=== PATIENT | female | born 1950 | race Caucasian/White ===

== ENCOUNTER 2020-04-27 12:33 | Outpatient (REF) | payer MEDICARE, MEDICAID, SELFPAY | END 2020-04-27 12:34 | disposition home or self-care (01) | LOC: HO.LAB 12:33 | PROVIDERS: Visit Provider Internal Medicine | DX: Z20.828 Contact with and (suspected) exposure to other viral communicable diseases (principal) | CPT/HCPCS: C9803; U0003 ==

== ENCOUNTER 2020-06-05 07:56 | Outpatient (REF) | payer MEDICARE, MEDICAID, SELFPAY ==
--- NOTE | 2020-06-05 08:01 | CT_ITS ---
EXAMINATION: CT CHEST, ABDOMEN AND PELVIS WITHOUT IV CONTRAST CLINICAL INFORMATION: Breast and stomach cancer. Assess response to treatment. COMPARISON: Previous abdominal and pelvic CT November 2019 and chest October 2011 TECHNIQUE: Axial images through the chest, abdomen and pelvis without IV and following oral contrast. Sagittal and coronal reconstructions on the technologist's workstation were performed. Patient dose 88 mGy-cm plus 313 mGy-cm. This CT examination was performed using dose optimization techniques as appropriate, variously including the following: *Automated exposure control *Adjustment of mA and/or kV according to patient size (this includes techniques or standardized protocols for targeted exams where dose is matched to indication/reason for exam; i.e. extremities or head) *Use of iterative reconstruction technique FINDINGS: CHEST: There is a 6 mm calcified peripheral or subpleural left upper lobe nodule axial image 214 series 5 that is stable. There is a 5 mm more central calcified left upper lobe nodule axial image 238 series 5 that is stable. There is a 3 mm peripheral or subpleural right upper lobe nodule adjacent to the major fissure axial image 234 series 5 that is stable. There are increased peripheral interstitial markings in the right upper and right middle lobe probably related to previous chest wall radiation, stable. The lungs are otherwise clear. No new nodule. The heart does not appear enlarged. There is no coronary artery calcification. There is no pericardial effusion. The thoracic aorta is normal in caliber. The esophagus is unremarkable. There is a left jugular port with tip projecting over the distal left innominate vein/proximal SVC. There are no enlarged hilar or mediastinal lymph nodes. There is no pleural effusion or pleural thickening. There are surgical clips in the right axilla. No enlarged axillary lymph nodes are seen. No chest wall mass is seen. ABDOMEN AND PELVIS: The liver is unremarkable. The gallbladder has been removed. There is no biliary duct dilatation. The spleen is unremarkable. The pancreas is unremarkable. The adrenal glands and kidneys are unremarkable. The bladder is unremarkable. The uterus and adnexa are unremarkable. There is a new [id number]-bhunn amount of ascites seen. There is infiltration and nodularity of the fat of the greater omentum suggestive of peritoneal carcinomatosis. The small and large bowel are unremarkable. The appendix is unremarkable. There is apparent wall thickening of the proximal stomach. How much of this is due to underdistention is uncertain. Evaluation for lymphadenopathy is difficult due to lack of contrast. There are small upper abdominal retroperitoneal lymph nodes. There are small lymph nodes seen in the gastrohepatic region. No enlarged lymph nodes are seen. The vascular structures are unremarkable. Review at bone windows demonstrates degenerative changes of the spine. No fracture or bone lesion is seen. CT/CT abdomen pelvis wo con IMPRESSION: CHEST: Stable calcified and noncalcified pulmonary nodules from 2012. No evidence of metastatic disease. ABDOMEN AND PELVIS: New qakkoxzb-ju-sytbi amount of ascites. Infiltration and nodularity of the greater omental fat worrisome for carcinomatosis.
--- NOTE | 2020-06-05 08:01 | CT_ITS ---
EXAMINATION: CT CHEST, ABDOMEN AND PELVIS WITHOUT IV CONTRAST CLINICAL INFORMATION: Breast and stomach cancer. Assess response to treatment. COMPARISON: Previous abdominal and pelvic CT November 2019 and chest October 2011 TECHNIQUE: Axial images through the chest, abdomen and pelvis without IV and following oral contrast. Sagittal and coronal reconstructions on the technologist's workstation were performed. Patient dose 88 mGy-cm plus 313 mGy-cm. This CT examination was performed using dose optimization techniques as appropriate, variously including the following: *Automated exposure control *Adjustment of mA and/or kV according to patient size (this includes techniques or standardized protocols for targeted exams where dose is matched to indication/reason for exam; i.e. extremities or head) *Use of iterative reconstruction technique FINDINGS: CHEST: There is a 6 mm calcified peripheral or subpleural left upper lobe nodule axial image 214 series 5 that is stable. There is a 5 mm more central calcified left upper lobe nodule axial image 238 series 5 that is stable. There is a 3 mm peripheral or subpleural right upper lobe nodule adjacent to the major fissure axial image 234 series 5 that is stable. There are increased peripheral interstitial markings in the right upper and right middle lobe probably related to previous chest wall radiation, stable. The lungs are otherwise clear. No new nodule. The heart does not appear enlarged. There is no coronary artery calcification. There is no pericardial effusion. The thoracic aorta is normal in caliber. The esophagus is unremarkable. There is a left jugular port with tip projecting over the distal left innominate vein/proximal SVC. There are no enlarged hilar or mediastinal lymph nodes. There is no pleural effusion or pleural thickening. There are surgical clips in the right axilla. No enlarged axillary lymph nodes are seen. No chest wall mass is seen. ABDOMEN AND PELVIS: The liver is unremarkable. The gallbladder has been removed. There is no biliary duct dilatation. The spleen is unremarkable. The pancreas is unremarkable. The adrenal glands and kidneys are unremarkable. The bladder is unremarkable. The uterus and adnexa are unremarkable. There is a new nkkrygzm-un-eieew amount of ascites seen. There is infiltration and nodularity of the fat of the greater omentum suggestive of peritoneal carcinomatosis. The small and large bowel are unremarkable. The appendix is unremarkable. There is apparent wall thickening of the proximal stomach. How much of this is due to underdistention is uncertain. Evaluation for lymphadenopathy is difficult due to lack of contrast. There are small upper abdominal retroperitoneal lymph nodes. There are small lymph nodes seen in the gastrohepatic region. No enlarged lymph nodes are seen. The vascular structures are unremarkable. Review at bone windows demonstrates degenerative changes of the spine. No fracture or bone lesion is seen. CT/CT chest wo con IMPRESSION: CHEST: Stable calcified and noncalcified pulmonary nodules from 2012. No evidence of metastatic disease. ABDOMEN AND PELVIS: New lvsuoggz-ws-xfpvr amount of ascites. Infiltration and nodularity of the greater omental fat worrisome for carcinomatosis.
== END 2020-06-05 07:57 | disposition home or self-care (01) ==
LOC: HO.CT 07:56
PROVIDERS: Visit Provider Internal Medicine
DX: C16.9 Malignant neoplasm of stomach, unspecified (principal)
CPT/HCPCS: 71250; 74176

== ENCOUNTER 2020-06-07 07:36 | Day surgery (SDC) | payer MEDICARE, MEDICAID, SELFPAY ==
[2020-06-07] VITALS (7 sets, daily range): BP systolic 117–141; BP diastolic 50–65; PULSE 97–108; RESP 16–19; TEMP 36.8–37.1; O2SAT 95–99; BMI 26.7
[2020-06-07 08:31] LABS: INTERNATIONAL NORM RATIO 1.1 (0.9-1.1); Prothrombin Time 12.8 SEC (10.8-13.0)
[2020-06-07 08:33] LABS: Partial Thromboplastin Time 30.8 SEC (24.1-38.0)
--- NOTE | 2020-06-07 09:04 | US_ITS ---
EXAMINATION: ULTRASOUND-GUIDED PARACENTESIS. CLINICAL INFORMATION: Malignant neoplasm of stomach. COMPARISON: None TECHNIQUE: Following explaining ultrasound-guided paracentesis procedure, benefits and risk, a written consent was obtained. Patient was placed supine on fluoroscopy table and pulmonary ultrasound imaging was obtained through the abdomen in the right upper quadrant lateral site was selected. The selected optimal site was marked, cleaned and draped in usual sterile manner. 1% lidocaine was injected at puncture site. Through a small skin incision a [address] Atlanticeh catheter was advanced into the peritoneal space. After observing fluid return, stylet was withdrawn and catheter connected to vacuum bottle via connecting cannula. After obtaining all fluid and observing no more fluid return, catheter was withdrawn and complete hemostasis achieved at puncture site. Sterile dressing was applied postprocedure. Patient tolerated procedure extremely well. FINDINGS: On preliminary ultrasound imaging there is moderate free fluid in the pelvis slightly greater on the right side. Approximately 2.6 L of brown-reddish fluid was aspirated from the peritoneal cavity. None of this fluid was sent to lab. US/US paracentesis abd w/image IMPRESSION: Successful ultrasound-guided paracentesis with approximately 2.6 L of brownish-reddish fluid was removed.
== END 2020-06-07 23:59 | disposition home or self-care (01) ==
PROVIDERS: PCP Internal Medicine; Visit Provider Radiology Diagnostic Radiology
DX: C16.9 Malignant neoplasm of stomach, unspecified (principal); R18.8 Other ascites; I10 Essential (primary) hypertension; Z88.8 Allergy status to other drugs, medicaments and biological substances
CPT/HCPCS: 36415; 49083; 85610; 85730

== ENCOUNTER 2020-06-25 07:42 | Day surgery (SDC) | payer MEDICARE, MEDICAID, SELFPAY ==
--- NOTE | 2020-06-25 08:18 | US_ITS ---
EXAMINATION: US GUIDED PARACENTESIS CLINICAL INFORMATION: Ascites. COMPARISON: Ultrasound paracentesis 06/07/2020 TECHNIQUE: Following explaining ultrasound-guided paracentesis procedure, benefits and risk, a written consent was obtained. Patient was placed supine on fluoroscopy table and preliminary ultrasound imaging was obtained through right and left abdomen. An optimal site was selected mid abdomen laterally and marked. The marked site was cleaned and draped in usual sterile manner with 2% Chlorhexidine solution. 1% lidocaine was administered at puncture site. Through a small skin incision, a 5-[employer] catheter was advanced into the peritoneal space. After observing fluid return, the catheter was connected to vacuum bottle via connecting cannula. After obtaining all fluid and observing no more fluid return, the catheter was withdrawn and complete hemostasis achieved at puncture site. Sterile dressing applied post-procedure. Patient tolerated procedure extremely well. FINDINGS: On preliminary ultrasound imaging, there is moderate fluid seen in the abdomen slightly more prominent in the right abdomen. Approximately 2.5 L of dark brownish-red fluid was removed from the right mid quadrant. None of this fluid was sent to lab as per referring physician's orders. US/US paracentesis abd w/image IMPRESSION: Successful ultrasound-guided paracentesis performed with approximately 2.5 L of dark brown-reddish fluid removed.
[2020-06-25 08:24] VITALS: BP 148/75; PULSE 105; RESP 16; TEMP 36.6; O2SAT 98
[2020-06-25 08:25] VITALS: BMI 28.0
[2020-06-25 09:45] VITALS: BP 149/64; PULSE 96; RESP 16; TEMP 37.1; O2SAT 97
[2020-06-25 10:00] VITALS: BP 124/57; PULSE 89; RESP 18; O2SAT 96
[2020-06-25 10:30] VITALS: BP 129/60; PULSE 94; RESP 16
[2020-06-25] MEDS: Lidocaine HCl 1 % MPF 5 ML VIAL SUBCUT (10:31)
[2020-06-25 11:00] VITALS: BP 120/51; PULSE 96; RESP 18; O2SAT 98
[2020-06-25 12:00] VITALS: BP 124/61; PULSE 90; RESP 18; TEMP 37.2; O2SAT 98
== END 2020-06-25 12:08 | disposition home or self-care (01) ==
PROVIDERS: PCP Internal Medicine; Visit Provider Radiology Diagnostic Radiology
DX: R18.8 Other ascites (principal); C50.911 Malignant neoplasm of unspecified site of right female breast; C78.89 Secondary malignant neoplasm of other digestive organs; B96.81 Helicobacter pylori [H. pylori] as the cause of diseases classified elsewhere; K21.9 Gastro-esophageal reflux disease without esophagitis; I10 Essential (primary) hypertension; Z88.8 Allergy status to other drugs, medicaments and biological substances; Z79.899 Other long term (current) drug therapy
CPT/HCPCS: 49083

== ENCOUNTER 2020-09-27 11:28 | Day surgery (SDC) | payer MEDICARE, MEDICAID, SELFPAY ==
--- NOTE | ~2020-09-27 | US_ITS ---
EXAMINATION: ULTRASOUND-GUIDED PARACENTESIS. CLINICAL INFORMATION: Malignant neoplasm of the stomach. COMPARISON: None TECHNIQUE: Following explaining ultrasound-guided paracentesis procedure, benefits and risks, written consent was obtained. Patient was placed supine on ultrasound stretcher and preliminary ultrasound imaging was obtained through the abdomen. An optimal site was selected, marked and cleaned and draped in usual sterile manner along the right mid quadrant. 1% lidocaine was injected at the puncture site. Through a small skin incision a 5-[place] Yi Chang Ou Sai IT catheter was advanced into the peritoneal space. After observing fluid return, stylet was removed and catheter connected to vacuum bottle. After draining all fluid and observing no more fluid return and ultrasound confirming no more fluid remaining, catheter was pulled out and complete hemostasis achieved at puncture site. Simple cyst dressing applied postprocedure. Patient tolerated procedure extremely well. FINDINGS: On the preliminary ultrasound imaging there is a large amount of ascites seen. Approximately 2.9 L of reddish-brown fluid was drained from the abdomen. US/US paracentesis abd w/image IMPRESSION: Successful ultrasound-guided therapeutic paracentesis. None of this fluid was sent to lab.
[2020-09-27 11:43] VITALS: BMI 22.8
[2020-09-27 12:00] LABS: INTERNATIONAL NORM RATIO 1.2 (0.9-1.1); Prothrombin Time 14.6 SEC (10.8-13.0)
[2020-09-27 12:02] LABS: Partial Thromboplastin Time 24.4 SEC (24.1-38.0)
[2020-09-27] MEDS: Lidocaine HCl 1 % MPF 5 ML VIAL SUBCUT (14:01)
[2020-09-27 14:10] VITALS: BP 132/71; PULSE 104; RESP 18; TEMP 37.3; O2SAT 97
[2020-09-27 14:25] VITALS: BP 121/56; PULSE 102; RESP 18; O2SAT 97
[2020-09-27 14:40] VITALS: BP 127/56; PULSE 100; RESP 18; O2SAT 98
[2020-09-27 14:55] VITALS: BP 117/56; PULSE 100; RESP 20; TEMP 36.7; O2SAT 99
== END 2020-09-27 15:18 | disposition home or self-care (01) ==
PROVIDERS: Radiology Diagnostic Radiology; PCP Internal Medicine; Visit Provider Radiology Diagnostic Radiology
DX: R18.8 Other ascites (principal); C16.9 Malignant neoplasm of stomach, unspecified; I10 Essential (primary) hypertension; Z85.3 Personal history of malignant neoplasm of breast
CPT/HCPCS: 36415; 49083; 85610; 85730; C1729

== ENCOUNTER 2020-11-29 09:15 | Outpatient (REF) | payer MEDICARE, MEDICAID, SELFPAY ==
--- NOTE | ~2020-11-29 | US_ITS ---
EXAMINATION: US ABDOMEN COMPLETE CLINICAL INFORMATION: Abdominal pain; history of breast and stomach cancer. COMPARISON: CT abdomen and pelvis 06/05/2020. Ultrasound abdomen 10/25/2018 and 11/01/2010. TECHNIQUE: Real-time imaging of the abdominal viscera. FINDINGS: PANCREAS: Normal. The visualized pancreatic head and body are normal in appearance. The remainder of the pancreas is obscured from visualization by the overlying bowel gas. ABDOMINAL AORTA: The visualized proximal and mid segments are normal in caliber. The distal segment is obscured by overlapping bowel gas. INFERIOR VENA CAVA: Visualized portions are normal. LIVER: The liver is normal in size. The liver contour is normal. Parenchymal echogenicity is normal. No focal hepatic lesion. There is mild intrahepatic biliary ductal dilatation. GALLBLADDER: Surgically absent. COMMON BILE DUCT: Normal in caliber, measuring 0.8 cm in diameter. RIGHT KIDNEY: There is moderate hydronephrosis No renal calculi or focal parenchymal lesions. The kidney measures 10.2 cm in maximum dimension. LEFT KIDNEY: There is moderate hydronephrosis. No renal calculi or focal parenchymal lesions. The kidney measures 10.3 cm in maximum dimension. SPLEEN: Normal. The spleen measures 8.4 cm in maximum dimension. FREE FLUID: There is mild 4 quadrant ascites. ADDITIONAL FINDINGS: Within the right upper quadrant, an 8.2 x 7.7 x 5.3 cm thick-walled cystic collection is seen, with possible medial loculation. US/US abdomen complete IMPRESSION: 1. There is moderate bilateral hydronephrosis. 2. The gallbladder surgically absent. 3. There is mild ascites. 4. There is a thick-walled cystic collection is seen in the right upper quadrant. Note is made that on the prior CT examination, there were findings suspicious for carcinomatosis. This finding could be further evaluated with dedicated CT.
== END 2020-11-29 09:16 | disposition home or self-care (01) ==
LOC: HO.US 09:15
PROVIDERS: Visit Provider Internal Medicine
DX: R10.9 Unspecified abdominal pain (principal)
CPT/HCPCS: 76700

== ENCOUNTER 2020-12-27 07:07 | Outpatient (REF) | payer MEDICARE, MEDICAID, SELFPAY ==
--- NOTE | ~2020-12-27 | CT_ITS ---
EXAMINATION: CT ABDOMEN AND PELVIS WITHOUT CONTRAST CLINICAL INFORMATION: Intra-abdominal and pelvic swelling, mass, lump. COMPARISON: Multiple priors, most recent abdominal ultrasound dated 11/29/[address] abdomen/pelvis dated 06/05/2020 TECHNIQUE: Multidetector volumetric imaging was performed from the superior aspect of the liver through the pubic symphysis. Sagittal and coronal reformatted images were obtained on the technologist's workstation. This CT examination was performed using dose optimization techniques as appropriate, variously including the following: *Automated exposure control *Adjustment of mA and/or kV according to patient size (this includes techniques or standardized protocols for targeted exams where dose is matched to indication/reason for exam; i.e. extremities or head) *Use of iterative reconstruction technique DLP: 281 mGy-cm FINDINGS: LUNG BASES: The visualized lung bases are unremarkable. LIVER, GALLBLADDER, AND BILIARY TREE: The liver is normal in size, shape, and attenuation. No focal hepatic lesion or biliary ductal dilatation is present. Status post cholecystectomy. PANCREAS: Poorly visualized without contrast. Grossly unremarkable. SPLEEN: Unremarkable. ADRENAL GLANDS: Unremarkable. KIDNEYS AND URETERS: Prominent bilateral hydronephrosis, similar when compared to the recent ultrasound. No renal or ureteral stone. No definite parenchymal lesion. BLADDER: Unremarkable. GASTROINTESTINAL TRACT: No bowel wall thickening or associated inflammatory change. No small or large bowel obstruction. Oral contrast reaches the colon. PERITONEAL CAVITY: [id number]-jgirn amount of ascites, similar when compared to the prior examination. No intra-abdominal free air. ABDOMINAL WALL: No significant hernia is appreciated. LYMPH NODES: Evaluation of lymphadenopathy limited without IV contrast. Thickening of the omentum is redemonstrated throughout the upper abdomen, concerning for carcinomatosis, unchanged. VASCULAR: No abdominal aortic dilatation. Scattered atherosclerotic calcifications. PELVIC VISCERA: Within the right pelvis, there is a new/increasing soft tissue density lesion measuring 5.4 x 4.3 cm in greatest axial dimension (axial image 60/82). Adjacent right ovary with associated calcification appears unchanged. OSSEOUS STRUCTURES: No new lytic or blastic osseous lesion. CT/CT abdomen pelvis wo con IMPRESSION: 1. New/increasing soft tissue mass within the right pelvis measuring up to 5.4 cm, not well seen on the prior examination. Adjacent right ovary with associated calcification appears unchanged. 2. Yrxzzytk-cw-htivp volume ascites as well as diffuse omental thickening/nodularity is redemonstrated, consistent with carcinomatosis. 3. Prominent bilateral hydronephrosis, similar when compared to the recent ultrasound.
[2020-12-27] MEDS: Barium Sulfate Oral (Vanilla) 450 ML ORAL.SUSP 900 ML PO (11:34)
== END 2020-12-27 07:08 | disposition home or self-care (01) ==
LOC: HO.CT 07:07
PROVIDERS: PCP Internal Medicine; Visit Provider Internal Medicine
DX: R19.00 Intra-abdominal and pelvic swelling, mass and lump, unspecified site (principal)
CPT/HCPCS: 74176

== ENCOUNTER 2021-01-08 12:10 | Day surgery (SDC) | payer MEDICARE, MEDICAID, SELFPAY ==
--- NOTE | ~2021-01-08 | US_ITS ---
PROCEDURE: ULTRASOUND-GUIDED PARACENTESIS CLINICAL INFORMATION: Ascites. COMPARISON: CT abdomen and pelvis 12/27/2020. TECHNIQUE: Following explaining ultrasound-guided paracentesis procedure, benefits and risk, a written consent was obtained. Patient was placed supine on ultrasound stretcher and preliminary ultrasound imaging was obtained through the abdomen. An optimal site was selected along the right mid quadrant and marked. The marked site was cleaned and draped in the usual sterile manner with 2% chlorhexidine solution. 1% lidocaine was administered at puncture site. Through a small skin incision a 4 [email or web address] catheter was advanced into the peritoneal space. After observing fluid return, stylus withdrawn and catheter connected to vacuum bottle. After obtaining all fluid and observing no more fluid return, the catheter was withdrawn and complete hemostasis was achieved at puncture site. Sterile Band-Aid applied postprocedure. Patient tolerated the procedure extremely well. FINDINGS: On preliminary ultrasound imaging there is large amount of free fluid seen. Approximately 5.5 L of blood-tinged fluid was drained. Postprocedure no residual fluid was seen . US/US paracentesis abd w/image IMPRESSION: Successful ultrasound-guided paracentesis performed without immediate complications.
[2021-01-08 12:57] VITALS: BMI 24.0
[2021-01-08 13:30] LABS: Prothrombin Time 11.4 SEC (9.9-13.0)
[2021-01-08 13:33] LABS: Partial Thromboplastin Time 30.5 SEC (24.1-38.0)
[2021-01-08 16:25] VITALS: BP 173/83; PULSE 121; RESP 16; TEMP 37.3; O2SAT 96
[2021-01-08 16:40] VITALS: BP 174/83; PULSE 122; RESP 15; O2SAT 97
[2021-01-08 16:55] VITALS: PULSE 128; RESP 16; O2SAT 98
[2021-01-08 17:15] VITALS: BP 171/86; PULSE 123; RESP 17; TEMP 37.1; O2SAT 97
[2021-01-08 17:30] VITALS: BP 165/88; PULSE 120; RESP 16; O2SAT 98
[2021-01-08 18:00] VITALS: BP 153/76; PULSE 114; RESP 17; TEMP 37; O2SAT 97
== END 2021-01-08 18:05 | disposition home or self-care (01) ==
LOC: HO.SSS 12:10
PROVIDERS: Radiology Diagnostic Radiology; PCP Internal Medicine; Visit Provider Radiology Diagnostic Radiology
DX: R18.8 Other ascites (principal); I10 Essential (primary) hypertension; Z79.899 Other long term (current) drug therapy; Z88.8 Allergy status to other drugs, medicaments and biological substances
CPT/HCPCS: 36415; 49083; 85610; 85730

== ENCOUNTER 2021-01-11 13:48 | Emergency (ER) | payer MEDICARE, MEDICAID, SELFPAY ==
--- NOTE | 2021-01-11 | ECG_ITS ---
Test Reason : CHEST PAIN Blood Pressure : / mmHG Vent. Rate : 106 BPM Atrial Rate : 106 BPM P-R Int : 148 ms QRS Dur : 074 ms QT Int : 344 ms P-R-T Axes : 053 -03 031 degrees QTc Int : 456 ms Sinus tachycardia Otherwise normal ECG When compared with ECG of 30-AUG-2019 18:33, No significant change was found Referred By: Generic ED Physician Electronically Signed By:MEDARDO CONWAY
--- NOTE | ~2021-01-11 | NM_ITS ---
EXAMINATION: NM LUNG IMAGE PERFUSION CLINICAL INFORMATION: Elevated d-dimer. Chest pain. COMPARISON: Chest x-ray January 11, 2021. CT chest June 05, 2020 TECHNIQUE: Lung perfusion study performed. 4 mCi technetium 99m MAA was given intravenously. Images then obtained in multiple projections over the lungs. FINDINGS: There is homogeneous perfusion of the right and left lung with no defect. No evidence of pulmonary embolism. NM/NM pul perfusion IMPRESSION: Normal perfusion lung study. No evidence of pulmonary embolism.
--- NOTE | ~2021-01-11 | XR_ITS ---
EXAMINATION: XR CHEST CLINICAL INFORMATION: Chest pain. COMPARISON: CT chest 06/05/2020 TECHNIQUE: 2 views of the chest were obtained. FINDINGS: The lungs are well-expanded and clear. Heart size and pulmonary vascularity is normal. There is a left jugular inserted Port-A-Cath with its tip in the brachiocephalic venous junction. There are surgical bel in the right axilla. Visualized bones and soft tissues are grossly unremarkable. XR/XR chest 2V IMPRESSION: Unremarkable chest.
[2021-01-11 13:54] VITALS: BP 185/87; PULSE 108; RESP 20; TEMP 37.1; O2SAT 99; BMI 23.3
--- NOTE | 2021-01-11 14:25 | ED_ITS ---
HPI - Chest Pain General Chief Complaint: Chest Pain Stated Complaint: chest pain Time Seen by Provider: 01/11/21 14:22 Source: patient Mode of arrival: ambulatory Limitations: no limitations History of Present Illness HPI narrative: WILLIAM IS A VERY PLEASANT 70 YEARS OLD PATIENT WITH HISTORY OF METASTATIC GASTRIC CANCER, RIGHT BREAST CANCER HYPERTENSION PRESENTED TO THE EMERGENCY DEPARTMENT TODAY WITH A CHIEF COMPLAINT OF CHEST PAIN SINCE YESTERDAY. DENIES ANY FEVER CHILLS, SHE STATES THE CHEST PAIN IS GONE NOW. THE DAUGHTER IS CONCERNED BECAUSE SHE NOTED BLOOD IN THE STOOLS WELL MD complaint: chest pain Onset (ago): day(s) (1) Prior episodes: No Pain location: substernal Quality: aching Relieving factors: nothing Risk Factors Coronary artery disease risk factors: none Related Data Home Medications Medication Instructions Recorded Confirmed amlodipine 5 mg tablet 5 mg PO BID 04/23/20 12/05/20 magnesium hydroxide 400 mg/5 mL 5 ml PO BEDTIME PRN 04/23/20 12/05/20 oral suspension (Milk of Magnesia) pantoprazole 40 mg tablet,delayed 40 mg PO BID 04/23/20 12/05/20 release polyethylene glycol 3350 17 gram 17 g PO DAILY PRN 04/23/20 12/05/20 oral powder packet (Miralax) spironolactone 25 mg tablet 25 mg PO DAILY 06/26/20 12/05/20 acetaminophen 325 mg tablet 650 mg PO Q4H PRN 07/04/20 12/05/20 (Tylenol) Previous Rx's Medication Instructions Recorded dexamethasone 4 mg tablet 4 mg PO BID #30 tab 07/04/20 diphenoxylate-atropine 2.5 1 tab PO BID #30 tab 07/11/20 mg-0.025 mg tablet (Lomotil) tramadol 50 mg tablet 100 mg PO BID PRN #120 tab 07/18/20 sennosides 8.6 mg tablet (Senna 8.6 mg PO BEDTIME PRN #30 tab 08/08/20 Laxative) ondansetron HCl 8 mg tablet 8 mg PO Q8H PRN #30 tab 01/07/21 Allergies Allergy/AdvReac Type Severity Reaction Status Date / Time Inhaled Anesthetics (Halogen Allergy Severe Anaphylaxis Verified 01/08/21 13:28 Based) oxaliplatin [OXALIPLATIN] Allergy Severe Itching Verified 01/08/21 13:28 Review of Systems Review of Systems: Yes all other systems are reviewed and are negative Constitutional: Constitutional: Reports no additional constitutional complaints ENT: Reports system reviewed and no additional complaints, except as docu mented Cardiovascular: Cardiovascular: Reports no additional cardiovascular complaints Respiratory: Respiratory: Reports no additional respiratory complaints Gastrointestinal: Gastrointestinal: Denies abdominal pain and Denies vomiting Integumentary/Breasts: Skin/Breast: Reports system reviewed and no additional complaints, except as docu PMFSH Past Medical History Attestation statement: The following information was validated with the patient. Medical History Breast cancer, right breast GERD (gastroesophageal reflux disease) Helicobacter pylori antibody positive Hypertension Surgical History History of lumpectomy of right breast Family History Family History Mother Ovarian cancer Father Aneurysm Social History Social History Alcohol intake: never Smoked in Last 30 Days: No Use of substances other than those prescribed or required for medical reasons: No Advance Directives: No Advance Directives Information Provided: Yes Patient : No (NO) Physical Exam Vital Signs: Vital Signs: Last Vital Signs Temp 98.7 F 01/11/21 13:54 Pulse 103 H 01/11/21 16:38 Resp 16 01/11/21 16:38 BP 176/89 H 01/11/21 16:38 Pulse Ox 98 01/11/21 14:58 Body Mass Index 23.3 Const: General: cooperative, comfortable and no acute distress Nutritional Appearance: well nourished Orientation/consciousness: oriented to person, oriented to place, oriented to time and patient oriented x3 Limitations: no limitations HENMT: Ears: hearing grossly normal bilaterally Face and sinus: Yes normal facial exam Mouth: Normal oral and palatal mucosa present Throat: Yes posterior oropharynx normal Neck: Neck: Yes normal visual inspection, Yes full ROM and Yes no lymphadenopathy Lymphatic: no lymphadenopathy noted Chest: Chest palpation & inspection: normal inspection of the chest Resp: Effort & Inspection: normal respiratory effort Auscultation: clear to auscultation bilaterally Cardio: Jugular venous distension: no JVD Rate: regular rate GI: Inspection: Yes normal to inspection and Yes other (ASCITES) Auscultation: normal bowel sounds Rectal Exam - Female: No heme positive stool Skin: Other: NO RASH General skin exam: no rashes or lesions noted Neuro: General: oriented to person, oriented to place, oriented to time and patient oriented x3 Course Course Course Narrative: At this time with the V/Q scan is pending if is negative I anticipate discharge home pain is atypical/pleuritic lasting 24 hour with the negative troponin The case with be signed out to Dr Durant [facility] - Chest Pain Lab Data Result diagrams: 01/11/21 15:07 01/11/21 15:07 Labs: Lab Results 01/11/21 01/11/21 01/11/21 Range/Units 15:07 15:07 15:07 WBC 14.1 H (4.8-10.8) X10*3/uL RBC 3.54 L (4.20-5.50) X10*6/uL Hgb 9.3 L (12.0-16.0) g/dl Hct 29.6 L (37-47) % MCV 83.6 (80-98) fL MCH 26.3 L (27.0-33.0) pg MCHC 31.4 (31.0-35.0) g/dl RDW 18.8 H (11.0-16.0) % Plt Count 446 H (160-400) X10*3/uL MPV 9.5 (9.4-12.3) fL Immature Gran % (Auto) 0.9 H (0.0-0.4) % Neut % (Auto) 79.5 H (45-73) % Lymph % (Auto) 7.8 L (20-40) % Cuming % (Auto) 11.2 H (2-11) % Eos % (Auto) 0.3 (0-4) % Baso % (Auto) 0.3 (0-2) % Lymph # (Auto) 1.1 L (1.2-4.9) X10*3/uL Cuming # (Auto) 1.6 H (0.1-1.2) X10*3/uL Eos # (Auto) 0.0 (0.0-0.4) X10*3/uL Baso # (Auto) 0.0 (0.0-0.2) X10*3/uL Abs Immat Gran (auto) 0.12 H (0.00-0.03) X10*3/uL Absolute Neuts (auto) 11.2 H (2.0-8.3) X10*3/uL Absolute Nucleated RBC 0.000 (0.0-0.012) X10*3/uL Nucleated RBC % (auto) 0.0 (0.0-0.2) /100WBC Smear Tech's Comments VERIFIED PT 12.9 (9.9-13.0) SEC INR 1.1 (0.9-1.1) D-Dimer 766 NG/ML Sodium 136 (135-145) mmol/L Potassium 3.7 (3.3-5.1) mmol/L Chloride 101 (96-108) mmol/L Carbon Dioxide 23 (22-29) mmol/L Anion Gap 16 (12-20) BUN 16 (9-16) mg/dL Creatinine 1.45 H (0.5-1.4) mg/dL Estim Creat Clear Calc 24.8 Estimated GFR 35 Random Glucose 111 (60-115) mg/dL Calcium 8.4 D (8.4-10.2) mg/dL Total Bilirubin 6.6 H (0.0-1.0) mg/dL AST 156 H (5-31) U/L ALT 191 H (0-31) U/L Alkaline Phosphatase 880 H D (39-117) U/L Troponin I High Sens (<3.5-17.0) ng/L Total Protein 5.8 L (6.5-8.0) g/dL Albumin 2.9 L D (3.5-5.0) g/dL Stool Occult Blood (NEGATIVE) 01/11/21 01/11/21 Range/Units 15:07 15:07 WBC (4.8-10.8) X10*3/uL RBC (4.20-5.50) X10*6/uL Hgb (12.0-16.0) g/dl Hct (37-47) % MCV (80-98) fL MCH (27.0-33.0) pg MCHC (31.0-35.0) g/dl RDW (11.0-16.0) % Plt Count (160-400) X10*3/uL MPV (9.4-12.3) fL Immature Gran % (Auto) (0.0-0.4) % Neut % (Auto) (45-73) % Lymph % (Auto) (20-40) % Cuming % (Auto) (2-11) % Eos % (Auto) (0-4) % Baso % (Auto) (0-2) % Lymph # (Auto) (1.2-4.9) X10*3/uL Cuming # (Auto) (0.1-1.2) X10*3/uL Eos # (Auto) (0.0-0.4) X10*3/uL Baso # (Auto) (0.0-0.2) X10*3/uL Abs Immat Gran (auto) (0.00-0.03) X10*3/uL Absolute Neuts (auto) (2.0-8.3) X10*3/uL Absolute Nucleated RBC (0.0-0.012) X10*3/uL Nucleated RBC % (auto) (0.0-0.2) /100WBC Smear Tech's Comments PT (9.9-13.0) SEC INR (0.9-1.1) D-Dimer NG/ML Sodium (135-145) mmol/L Potassium (3.3-5.1) mmol/L Chloride (96-108) mmol/L Carbon Dioxide (22-29) mmol/L Anion Gap (12-20) BUN (9-16) mg/dL Creatinine (0.5-1.4) mg/dL Estim Creat Clear Calc Estimated GFR Random Glucose (60-115) mg/dL Calcium (8.4-10.2) mg/dL Total Bilirubin (0.0-1.0) mg/dL AST (5-31) U/L ALT (0-31) U/L Alkaline Phosphatase (39-117) U/L Troponin I High Sens < 3.5 (<3.5-17.0) ng/L Total Protein (6.5-8.0) g/dL Albumin (3.5-5.0) g/dL Stool Occult Blood POSITIVE (NEGATIVE) Discharge Plan Discharge Prescriptions: No Action ondansetron HCl [Zofran] 8 mg Tablet 8 mg PO Q8H PRN (Reason: Nausea) Qty: 30 RF: 0 polyethylene glycol 3350 [Miralax] 17 gram Powder In Packet 17 g PO DAILY PRN (Reason: Constipation) RF: 0 amlodipine 5 mg Tablet 5 mg PO BID RF: 0 magnesium hydroxide [Milk of Magnesia] 400 mg/5 mL Suspension 5 ml PO BEDTIME PRN (Reason: Constipation) RF: 0 pantoprazole 40 mg Tablet,Delayed Release (Dr/Ec) 40 mg PO BID RF: 0 spironolactone 25 mg Tablet 25 mg PO DAILY RF: 0 acetaminophen [Tylenol] 325 mg Tablet 650 mg PO Q4H PRN (Reason: Pain) RF: 0 dexamethasone 4 mg Tablet 4 mg PO BID Qty: 30 RF: 2 diphenoxylate-atropine [Lomotil] 2.5-0.025 mg Tablet 1 tab PO BID Qty: 30 RF: 0 tramadol 50 mg Tablet 100 mg PO BID PRN (Reason: Pain) Qty: 120 RF: 0 sennosides [Senna Laxative] 8.6 mg Tablet 8.6 mg PO BEDTIME PRN (Reason: Constipation) Qty: 30 RF: 3
[2021-01-11 14:58] VITALS: BP 170/85; PULSE 108; RESP 17; O2SAT 98
[2021-01-11 15:18] LABS: OBS Int Ctl Valid YES; OBS1 POSITIVE (NEGATIVE)
[2021-01-11 15:28] LABS: Basophils Percent Auto 0.3 % (0-2); Eosinophils Percent Auto 0.3 % (0-4); Hematocrit 29.6 % (37-47); Hemoglobin 9.3 g/dl (12.0-16.0); Imm Gran Abs Auto 0.12 X10*3/uL (0.00-0.03); Imm Gran Pct Auto 0.9 % (0.0-0.4); Lymphocytes Absolute Auto 1.1 X10*3/uL (1.2-4.9); Lymphocytes Percent Auto 7.8 % (20-40); MANUAL DIFF FLAG SCAN; Mean Corpuscular HGB Conc 31.4 g/dl (31.0-35.0); Mean Corpuscular Hemoglobin 26.3 pg (27.0-33.0); Mean Corpuscular Volume 83.6 fL (80-98); Mean Platelet Volume 9.5 fL (9.4-12.3); Monocytes Absolute Auto 1.6 X10*3/uL (0.1-1.2); Monocytes Percent Auto 11.2 % (2-11); Neutrophils Absolute Auto 11.2 X10*3/uL (2.0-8.3); Neutrophils Percent Auto 79.5 % (45-73); Platelet Count 446 X10*3/uL (160-400); Red Blood Count 3.54 X10*6/uL (4.20-5.50); Red Cell Distribution Width 18.8 % (11.0-16.0); SCAN SMEAR FLAG 1; White Blood Count 14.1 X10*3/uL (4.8-10.8)
[2021-01-11 15:44] LABS: INTERNATIONAL NORM RATIO 1.1 (0.9-1.1); Prothrombin Time 12.9 SEC (9.9-13.0)
[2021-01-11 15:52] LABS: D Dimer 766 NG/ML
[2021-01-11 15:53] LABS: Troponin-I High Sensitivity < 3.5 ng/L (<3.5-17.0)
[2021-01-11 15:54] LABS: Alanine Aminotransferase 191 U/L (0-31); Albumin Level 2.9 g/dL (3.5-5.0); Alkaline Phosphatase 880 U/L (39-117); Anion Gap 16 (12-20); Aspartate Amino Transferase 156 U/L (5-31); Bilirubin Total 6.6 mg/dL (0.0-1.0); Blood Urea Nitrogen 16 mg/dL (9-16); Calcium 8.4 mg/dL (8.4-10.2); Carbon Dioxide 23 mmol/L (22-29); Chloride 101 mmol/L (96-108); Creatinine Clr Calc Pharmacy 24.8; Estimated Glomerular Filt Rate 35; Glucose Random 111 mg/dL (60-115); Potassium 3.7 mmol/L (3.3-5.1); Sodium 136 mmol/L (135-145); Total Protein 5.8 g/dL (6.5-8.0)
[2021-01-11 15:58] LABS: SLIDE REVIEW VERIFIED
[2021-01-11 16:38] VITALS: BP 176/89; PULSE 103; RESP 16
[2021-01-11] MEDS: LORazepam 0.5 MG TABLET PO (16:39)
--- NOTE | 2021-01-11 18:38 | ED_ITS ---
HPI - Chest Pain General Chief Complaint: Chest Pain Stated Complaint: chest pain Time Seen by Provider: 01/11/21 14:22 Source: patient Mode of arrival: ambulatory Limitations: no limitations History of Present Illness Pain location: substernal Quality: aching Relieving factors: nothing Related Data Home Medications Medication Instructions Recorded Confirmed amlodipine 5 mg tablet 5 mg PO BID 04/23/20 12/05/20 magnesium hydroxide 400 mg/5 mL 5 ml PO BEDTIME PRN 04/23/20 12/05/20 oral suspension (Milk of Magnesia) pantoprazole 40 mg tablet,delayed 40 mg PO BID 04/23/20 12/05/20 release polyethylene glycol 3350 17 gram 17 g PO DAILY PRN 04/23/20 12/05/20 oral powder packet (Miralax) spironolactone 25 mg tablet 25 mg PO DAILY 06/26/20 12/05/20 acetaminophen 325 mg tablet 650 mg PO Q4H PRN 07/04/20 12/05/20 (Tylenol) Previous Rx's Medication Instructions Recorded dexamethasone 4 mg tablet 4 mg PO BID #30 tab 07/04/20 diphenoxylate-atropine 2.5 1 tab PO BID #30 tab 07/11/20 mg-0.025 mg tablet (Lomotil) tramadol 50 mg tablet 100 mg PO BID PRN #120 tab 07/18/20 sennosides 8.6 mg tablet (Senna 8.6 mg PO BEDTIME PRN #30 tab 08/08/20 Laxative) ondansetron HCl 8 mg tablet 8 mg PO Q8H PRN #30 tab 01/07/21 lorazepam 0.5 mg tablet (Ativan) 0.5 mg PO TID PRN #10 tab 01/11/21 oxycodone 5 mg tablet 5 mg PO Q6H PRN #20 tab 01/13/21 fentanyl 25 mcg/hr transdermal 1 patch TRANSDERMAL Q72H #6 ea 01/14/21 patch Allergies Allergy/AdvReac Type Severity Reaction Status Date / Time Inhaled Anesthetics (Halogen Allergy Severe Anaphylaxis Verified 01/08/21 13:28 Based) oxaliplatin [OXALIPLATIN] Allergy Severe Itching Verified 01/08/21 13:28 [facility] Past Medical History Medical History Breast cancer, right breast GERD (gastroesophageal reflux disease) Helicobacter pylori antibody positive Hypertension Surgical History History of lumpectomy of right breast Family History Family History Mother Ovarian cancer Father Aneurysm Social History Social History Alcohol intake: never Physical Exam Vital Signs: Vital Signs: Last Vital Signs Temp 99.2 F 01/11/21 18:59 Pulse 100 01/11/21 18:59 Resp 18 01/11/21 18:59 BP 157/83 H 01/11/21 18:59 Pulse Ox 98 01/11/21 18:59 Body Mass Index 23.3 MDM - Chest Pain Lab Data Result diagrams: 01/11/21 15:07 01/11/21 15:07 Labs: Lab Results 01/11/21 01/11/21 01/11/21 Range/Units 15:07 15:07 15:07 WBC 14.1 H (4.8-10.8) X10*3/uL RBC 3.54 L (4.20-5.50) X10*6/uL Hgb 9.3 L (12.0-16.0) g/dl Hct 29.6 L (37-47) % MCV 83.6 (80-98) fL MCH 26.3 L (27.0-33.0) pg MCHC 31.4 (31.0-35.0) g/dl RDW 18.8 H (11.0-16.0) % Plt Count 446 H (160-400) X10*3/uL MPV 9.5 (9.4-12.3) fL Immature Gran % (Auto) 0.9 H (0.0-0.4) % Neut % (Auto) 79.5 H (45-73) % Lymph % (Auto) 7.8 L (20-40) % [place] % (Auto) 11.2 H (2-11) % Eos % (Auto) 0.3 (0-4) % Baso % (Auto) 0.3 (0-2) % Lymph # (Auto) 1.1 L (1.2-4.9) X10*3/uL [place] # (Auto) 1.6 H (0.1-1.2) X10*3/uL Eos # (Auto) 0.0 (0.0-0.4) X10*3/uL Baso # (Auto) 0.0 (0.0-0.2) X10*3/uL Abs Immat Gran (auto) 0.12 H (0.00-0.03) X10*3/uL Absolute Neuts (auto) 11.2 H (2.0-8.3) X10*3/uL Absolute Nucleated RBC 0.000 (0.0-0.012) X10*3/uL Nucleated RBC % (auto) 0.0 (0.0-0.2) /100WBC Smear Tech's Comments VERIFIED PT 12.9 (9.9-13.0) SEC INR 1.1 (0.9-1.1) D-Dimer 766 NG/ML Sodium 136 (135-145) mmol/L Potassium 3.7 (3.3-5.1) mmol/L Chloride 101 (96-108) mmol/L Carbon Dioxide 23 (22-29) mmol/L Anion Gap 16 (12-20) BUN 16 (9-16) mg/dL Creatinine 1.45 H (0.5-1.4) mg/dL Estim Creat Clear Calc 24.8 Estimated GFR 35 Random Glucose 111 (60-115) mg/dL Calcium 8.4 D (8.4-10.2) mg/dL Total Bilirubin 6.6 H (0.0-1.0) mg/dL AST 156 H (5-31) U/L ALT 191 H (0-31) U/L Alkaline Phosphatase 880 H D (39-117) U/L Troponin I High Sens (<3.5-17.0) ng/L Total Protein 5.8 L (6.5-8.0) g/dL Albumin 2.9 L D (3.5-5.0) g/dL Stool Occult Blood (NEGATIVE) 01/11/21 01/11/21 Range/Units 15:07 15:07 WBC (4.8-10.8) X10*3/uL RBC (4.20-5.50) X10*6/uL Hgb (12.0-16.0) g/dl Hct (37-47) % MCV (80-98) fL MCH (27.0-33.0) pg MCHC (31.0-35.0) g/dl RDW (11.0-16.0) % Plt Count (160-400) X10*3/uL MPV (9.4-12.3) fL Immature Gran % (Auto) (0.0-0.4) % Neut % (Auto) (45-73) % Lymph % (Auto) (20-40) % [place] % (Auto) (2-11) % Eos % (Auto) (0-4) % Baso % (Auto) (0-2) % Lymph # (Auto) (1.2-4.9) X10*3/uL [place] # (Auto) (0.1-1.2) X10*3/uL Eos # (Auto) (0.0-0.4) X10*3/uL Baso # (Auto) (0.0-0.2) X10*3/uL Abs Immat Gran (auto) (0.00-0.03) X10*3/uL Absolute Neuts (auto) (2.0-8.3) X10*3/uL Absolute Nucleated RBC (0.0-0.012) X10*3/uL Nucleated RBC % (auto) (0.0-0.2) /100WBC Smear Tech's Comments PT (9.9-13.0) SEC INR (0.9-1.1) D-Dimer NG/ML Sodium (135-145) mmol/L Potassium (3.3-5.1) mmol/L Chloride (96-108) mmol/L Carbon Dioxide (22-29) mmol/L Anion Gap (12-20) BUN (9-16) mg/dL Creatinine (0.5-1.4) mg/dL Estim Creat Clear Calc Estimated GFR Random Glucose (60-115) mg/dL Calcium (8.4-10.2) mg/dL Total Bilirubin (0.0-1.0) mg/dL AST (5-31) U/L ALT (0-31) U/L Alkaline Phosphatase (39-117) U/L Troponin I High Sens < 3.5 (<3.5-17.0) ng/L Total Protein (6.5-8.0) g/dL Albumin (3.5-5.0) g/dL Stool Occult Blood POSITIVE (NEGATIVE) Discharge Plan Discharge Clinical Impression: Atypical chest pain, Chest pain, pleuritic, Anxiety Patient Disposition: Home, Self-Care Instructions: Pleurisy (ED) Additional Instructions: The V/Q scan today did not reveal any obvious blood clot in your lung which is reassuring. Your pain is consistent with pleurisy which is inflammation of the lining of the lung. Continue to take your tramadol as prescribed by your doctor. I am prescribing Ativan (lorazepam) 0.5 mg, you can take 1 pill every 6 hours as needed for your chest pain or anxiety. This medication will make you sleepy. Follow-up with your doctor in 2 days. Please return to the emergency department if your symptoms get worse or if you develop any symptoms that are concerning to you. Prescriptions: New lorazepam [Ativan] 0.5 mg tablet 0.5 mg PO TID PRN (Reason: anxiety) Qty: 10 RF: 0 No Action ondansetron HCl [Zofran] 8 mg Tablet 8 mg PO Q8H PRN (Reason: Nausea) Qty: 30 RF: 0 polyethylene glycol 3350 [Miralax] 17 gram Powder In Packet 17 g PO DAILY PRN (Reason: Constipation) RF: 0 amlodipine 5 mg Tablet 5 mg PO BID RF: 0 magnesium hydroxide [Milk of Magnesia] 400 mg/5 mL Suspension 5 ml PO BEDTIME PRN (Reason: Constipation) RF: 0 pantoprazole 40 mg Tablet,Delayed Release (Dr/Ec) 40 mg PO BID RF: 0 spironolactone 25 mg Tablet 25 mg PO DAILY RF: 0 acetaminophen [Tylenol] 325 mg Tablet 650 mg PO Q4H PRN (Reason: Pain) RF: 0 dexamethasone 4 mg Tablet 4 mg PO BID Qty: 30 RF: 2 diphenoxylate-atropine [Lomotil] 2.5-0.025 mg Tablet 1 tab PO BID Qty: 30 RF: 0 tramadol 50 mg Tablet 100 mg PO BID PRN (Reason: Pain) Qty: 120 RF: 0 sennosides [Senna Laxative] 8.6 mg Tablet 8.6 mg PO BEDTIME PRN (Reason: Constipation) Qty: 30 RF: 3 fentanyl 25 mcg/hr Patch 72 Hour 1 patch TRANSDERMAL Q72H Qty: 6 RF: 0 oxycodone 5 mg tablet 5 mg PO Q6H PRN (Reason: Pain, Moderate) Qty: 20 RF: 0 Interventions: ED Discharge Assessment Last Done: 01/11/21 20:39 Discharge Date/Time: 01/11/21 20:43
[2021-01-11 18:59] VITALS: BP 157/83; PULSE 100; RESP 18; TEMP 37.3; O2SAT 98
[2021-01-11] MEDS: Heparin Sodium,Porcine Flush 500 UNIT/5 ML SYRINGE IVFLUSH (20:36)
== END 2021-01-11 20:43 | disposition home or self-care (01) ==
PROVIDERS: Emergency Medicine; Emergency Provider Emergency Medicine Emergency Medical Services
DX: R07.89 Other chest pain (principal); R09.1 Pleurisy; F41.9 Anxiety disorder, unspecified; I10 Essential (primary) hypertension; C50.911 Malignant neoplasm of unspecified site of right female breast; C78.89 Secondary malignant neoplasm of other digestive organs; Z92.21 Personal history of antineoplastic chemotherapy; Z92.3 Personal history of irradiation; Z79.899 Other long term (current) drug therapy
CPT/HCPCS: 36415; 71046; 78580; 80053; 82272; 84484; 85025; 85379; 85610; 93005; 99285; A9540; J1642

== ENCOUNTER 2021-01-13 11:55 | Emergency (ER) | payer MEDICARE, MEDICAID, SELFPAY ==
--- NOTE | ~2021-01-13 | CT_ITS ---
EXAMINATION: CT CHEST WITH IV CONTRAST CT ABDOMEN AND PELVIS WITH IV CONTRAST CLINICAL INFORMATION: 70-year-old female with history of breast and gastric cancer. Examination requested for metastatic gastric cancer and right-sided pain. COMPARISON: 06/05/2020 and 12/27/2020. TECHNIQUE: Noncontrast multidetector CT imaging examination of the chest, abdomen and pelvis was performed. Axial images are displayed at 0.6 mm and 5 mm slice thickness. Coronal and sagittal reformatted images were generated at the technologist's workstation and submitted for review. This CT examination was performed using dose optimization techniques as appropriate, variously including the following: *Automated exposure control *Adjustment of mA and/or kV according to patient size (this includes techniques or standardized protocols for targeted exams where dose is matched to indication/reason for exam; i.e. extremities or head) *Use of iterative reconstruction technique DLP: 461 mGy-cm FINDINGS: CHEST - LUNGS AND PLEURA: Trachea and central airways are widely patent and normal in caliber. Lungs have slightly mosaic attenuation. Stable subpleural reticular opacity of scarring in the anterior right lung, deep to the right breast, likely secondary to radiation treatment to the right breast. Old calcified granulomas in the left upper lobe. A small noncalcified nodular structure along the right major fissure, likely perifissural lymph node, is unchanged in size compared to 08/06/2012. No interval development of a suspicious lung nodule or mass. Small left pleural effusion is new compared to 12/27/2020. MEDIASTINUM/LOWER NECK: The heart size is normal. There is calcification of the mitral valve annulus. Mild thoracic aorta atherosclerosis without aneurysm. Pulmonary arteries are normal in size. No pericardial effusion. Esophagus has normal wall thickness. Small amount of fluid and gas are present in the esophageal lumen. The thyroid gland is unremarkable. There is a left chest wall medication port in the tip of the catheter located in region of junction of brachiocephalic veins. LYMPHATICS: No pathologic sized axillary, hilar or mediastinal lymph nodes. Surgical clips in the right axilla. CHEST WALL/BONES: No chest wall mass. Thoracic vertebra have well preserved height and alignment. No acute findings in the degenerated spine. No aggressive osseous lesion within the thorax. ABDOMEN AND PELVIS - HEPATOBILIARY: Liver has normal size, contour and attenuation. No evidence of liver mass on these noncontrast images. Gallbladder is surgically absent. No intrahepatic or extrahepatic bile duct dilatation. PANCREAS: No evidence of pancreatic mass or ductal dilatation. SPLEEN: Normal size and attenuation. ADRENAL GLANDS: Chronic, mild fullness of the adrenal glands without discrete nodularity. KIDNEYS AND URETERS: Persistent borywnpi-ex-vbrxtr bilateral hydroureteronephrosis. No obstructing ureteral stones. No renal calculi. BOWEL AND PERITONEUM: The stomach is moderately distended with fluid, gas and ingested food material. There appears to be wall thickening in the antropyloric region, but evaluation of the stomach is limited on this noncontrast examination. Query whether is any suspicion for developing gastric outlet obstruction. No dilated loops of small or large bowel. Moderate to large volume of abdominal and pelvic ascites, similar compared to the prior exam. There is a persistently loculated collection in the right upper quadrant along the anterior surface of the proximal transverse colon at the hepatic flexure. Persistent reticulonodular opacity of omental caking. No pneumoperitoneum or other significant change. ABDOMINAL WALL: Mild edema in subcutaneous tissues of the abdominal wall. No abdominal wall hernia. VESSELS: Mild atherosclerosis of the abdominal aorta without aneurysm. Inferior vena cava is unremarkable. LYMPH NODES: No overt lymphadenopathy. Lymph nodes in the mesentery measure up to 0.7 cm short axis dimension. No retroperitoneal or iliac lymphadenopathy. BLADDER AND PELVIC VISCERA: Urinary bladder is unremarkable. Uterus is normal in size. 4.3 x 5.2 cm solid mass in the right adnexal area is new compared to 06/05/2020 (but not significantly changed in size compared to 12/27/2020). MUSCULOSKELETAL: No acute abnormalities in the degenerated spine. Moderate disc space narrowing and vacuum disc phenomenon at L5-S1. No evidence of skeletal metastasis. CT/CT abdomen pelvis wo con IMPRESSION: * Small left pleural effusion is new compared to 12/27/2020. * Again noted is omental caking/peritoneal carcinomatosis with moderate to large volume of ascitic fluid in the abdomen and pelvis, similar compared to 12/27/2020. The loculated fluid in the right upper quadrant anterior to the hepatic flexure of the colon is unchanged. No bowel obstruction. * Persistent [id number] bilateral hydroureteronephrosis. * Stomach is moderately distended. There appears to be wall thickening in the antropyloric region. In this patient with history of gastric carcinoma, a developing gastric outlet obstruction is not confidently excluded on this test. * The right pelvic mass, presumably representing adnexal region metastasis rather than a primary adnexal tumor, is new compared to 06/05/2020 and not significantly changed in size compared to 12/27/2020.
[2021-01-13 12:05] VITALS: BP 181/84; PULSE 110; RESP 15; TEMP 36.1; O2SAT 97; BMI 21.5
--- NOTE | 2021-01-13 12:35 | ECG_ITS ---
Test Reason : CHEST PAIN Blood Pressure : / mmHG Vent. Rate : 108 BPM Atrial Rate : 108 BPM P-R Int : 156 ms QRS Dur : 082 ms QT Int : 350 ms P-R-T Axes : 057 -03 046 degrees QTc Int : 469 ms Sinus tachycardia Possible Anterior infarct , age undetermined ; could be related to body habitus/lead placement Abnormal ECG When compared with ECG of 11-JAN-2021 13:58, No significant change was found Referred By: Generic ED Physician Electronically Signed By:MEDARDO CONWAY
[2021-01-13 14:17] VITALS: BP 173/91; PULSE 98; RESP 14; TEMP 36.9
[2021-01-13 15:09] LABS: MANUAL DIFF FLAG NO
--- NOTE | 2021-01-13 15:10 | PC.NURSE ---
port access obtained with no blood return for lab draw. phlebomotomy at bedside for draw as pt is tough stick. pt requesting food, encouraged to wait until ct results. pt aware of plan for care, daughter at bedside.
[2021-01-13 15:14] LABS: Basophils Percent Auto 0.2 % (0-2); Eosinophils Absolute Auto 0.1 X10*3/uL (0.0-0.4); Eosinophils Percent Auto 0.5 % (0-4); Hemoglobin 9.2 g/dl (12.0-16.0); Imm Gran Abs Auto 0.09 X10*3/uL (0.00-0.03); Imm Gran Pct Auto 0.8 % (0.0-0.4); Lymphocytes Absolute Auto 1.2 X10*3/uL (1.2-4.9); Lymphocytes Percent Auto 10.4 % (20-40); Mean Corpuscular HGB Conc 31.7 g/dl (31.0-35.0); Mean Corpuscular Hemoglobin 26.4 pg (27.0-33.0); Mean Corpuscular Volume 83.3 fL (80-98); Mean Platelet Volume 9.6 fL (9.4-12.3); Monocytes Absolute Auto 1.4 X10*3/uL (0.1-1.2); Monocytes Percent Auto 12.4 % (2-11); Neutrophils Absolute Auto 8.8 X10*3/uL (2.0-8.3); Neutrophils Percent Auto 75.7 % (45-73); Platelet Count 467 X10*3/uL (160-400); Red Blood Count 3.48 X10*6/uL (4.20-5.50); Red Cell Distribution Width 19.3 % (11.0-16.0); White Blood Count 11.6 X10*3/uL (4.8-10.8)
[2021-01-13 15:26] LABS: INTERNATIONAL NORM RATIO 1.1 (0.9-1.1); Prothrombin Time 12.8 SEC (9.9-13.0)
[2021-01-13 15:44] LABS: Troponin-I High Sensitivity 4.1 ng/L (<3.5-17.0)
[2021-01-13] MEDS: Ondansetron ODT 4 MG TAB.RAPDIS TRANSLINGU (15:58)
[2021-01-13 16:00] VITALS: BP 163/82; PULSE 102; RESP 16; TEMP 37; O2SAT 97
[2021-01-13 16:01] LABS: Alanine Aminotransferase 195 U/L (0-31); Alkaline Phosphatase 1091 U/L (39-117); Anion Gap 14 (12-20); Aspartate Amino Transferase 234 U/L (5-31); Bilirubin Total 9.3 mg/dL (0.0-1.0); Blood Urea Nitrogen 17 mg/dL (9-16); Calcium 8.8 mg/dL (8.4-10.2); Carbon Dioxide 25 mmol/L (22-29); Chloride 102 mmol/L (96-108); Creatinine Clr Calc Pharmacy 20.5; Estimated Glomerular Filt Rate 32; Gamma Glutamyl Transpeptidase 1497 U/L (7-33); Glucose Random 109 mg/dL (60-115); Lipase 24 U/L (8-78); Potassium 4.2 mmol/L (3.3-5.1); Sodium 137 mmol/L (135-145); Total Protein 5.9 g/dL (6.5-8.0)
--- NOTE | 2021-01-13 17:17 | ED.GENADULT ---
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 failure started on palliative chemotherapy with modified FOLFOX regimen on 09/01 plan for home hospice care was seen here 2 days ago for right-sided chest pain and workup was negative for PE showed elevated liver enzymes which has been getting worse over the last 10 days patient comes here for right-sided chest pain and increased jaundice with nausea no vomiting no significant abdominal pain does have ascites no change in sensorium no lethargy Related Data Home Medications Medication Instructions Recorded Confirmed amlodipine 5 mg tablet 5 mg PO BID 04/23/20 12/05/20 magnesium hydroxide 400 mg/5 mL 5 ml PO BEDTIME PRN 04/23/20 12/05/20 oral suspension (Milk of Magnesia) pantoprazole 40 mg tablet,delayed 40 mg PO BID 04/23/20 12/05/20 release polyethylene glycol 3350 17 gram 17 g PO DAILY PRN 04/23/20 12/05/20 oral powder packet (Miralax) spironolactone 25 mg tablet 25 mg PO DAILY 06/26/20 12/05/20 acetaminophen 325 mg tablet 650 mg PO Q4H PRN 07/04/20 12/05/20 (Tylenol) Previous Rx's Medication Instructions Recorded dexamethasone 4 mg tablet 4 mg PO BID #30 tab 07/04/20 diphenoxylate-atropine 2.5 1 tab PO BID #30 tab 07/11/20 mg-0.025 mg tablet (Lomotil) tramadol 50 mg tablet 100 mg PO BID PRN #120 tab 07/18/20 sennosides 8.6 mg tablet (Senna 8.6 mg PO BEDTIME PRN #30 tab 08/08/20 Laxative) ondansetron HCl 8 mg tablet 8 mg PO Q8H PRN #30 tab 01/07/21 lorazepam 0.5 mg tablet (Ativan) 0.5 mg PO TID PRN #10 tab 01/11/21 oxycodone 5 mg tablet 5 mg PO Q6H PRN #20 tab 01/13/21 Allergies Allergy/AdvReac Type Severity Reaction Status Date / Time Inhaled Anesthetics (Halogen Allergy Severe Anaphylaxis Verified 01/08/21 13:28 Based) oxaliplatin [OXALIPLATIN] Allergy Severe Itching Verified 01/08/21 13:28 Review of Systems Review of Systems: Constitutional : + Weight loss, No Fever, No Chills ENT/Mouth : No sore throat, No Rhinorrhea Eyes: No Eye Pain, No Swelling Cardiovascular : R Chest Pain, no palpitations Respiratory : No Cough, No Sputum, no shortness of breath Gastrointestinal : + Nausea, No Vomiting, No Diarrhea, + abdominal Pain, no black stools Genitourinary : No Dysuria, No Urinary Frequency Musculoskeletal : No joint pain, No Myalgias, No Joint Swelling Skin : No Skin Lesions, No rash Neuro : No Weakness, No Numbness, No Dizziness, No Headache Psych : No Anxiety/Panic, No Depression Heme/Lymph: No Bruising, No Lymphadenopathy Endocrine : No Polyuria, No Polydipsia All other systems reviewed and are negative [facility] Past Medical History Medical History Breast cancer, right breast GERD (gastroesophageal reflux disease) Helicobacter pylori antibody positive Hypertension Surgical History History of lumpectomy of right breast Family History Family History Mother Ovarian cancer Father Aneurysm Social History Social History Alcohol intake: never Advance Directives: No Advance Directives Information Provided: Yes Physical Exam Vital Signs: Vital Signs: Last Vital Signs Temp 98.6 F 01/13/21 16:00 Pulse 102 H 01/13/21 16:00 Resp 16 01/13/21 16:00 BP 163/82 H 01/13/21 16:00 Pulse Ox 97 01/13/21 16:00 Body Mass Index 21.5 Appearance: Alert. Oriented X3. No acute distress. Thin built Eyes: PERRLA, No Nystagmus ENT: Pharynx normal. Oral Mucosa moist, severely icteric Neck: Normal inspection. Neck supple. CVS: Normal heart rate and rhythm. Pulses normal. Respiratory: No respiratory distress. Equal air entry bilateral, no wheezing/rales/rhonchi Abdomen: Distended abdomen nontender free fluid present Bowel sounds are present, no mass palpable, no CVA tenderness Skin: Skin warm and dry. Normal skin color. Normal skin turgor. Extremities: No lower extremity edema. No calf tenderness Neuro: Oriented X 3. No motor deficit. No sensory deficit.No cerebellar signs , cranial nerves II-XII intact Medical Decision Making MDM Narrative Medical decision making narrative: Patient with metastatic gastric cancer plan for home hospice care per daughter who is guardian and patient supposed to see Dr. Villatoro oncologist tomorrow for further management. Patient workup showed worsening of the liver functions without any intra or extrahepatic duct dilatation showed peritoneal carcinomatosis bilateral hydronephrosis and right pelvic mass from metastatic disease without any significant change. Patient daughter prefer patient to go home and follow-up with oncologist tomorrow at this time patient does not have any signs of encephalopathy Lab Data Lab results reviewed: Yes I reviewed the patient's lab results. Result diagrams: 01/13/21 14:59 01/13/21 14:59 Labs: Lab Results 01/13/21 01/13/21 01/13/21 Range/Units 14:59 14:59 14:59 WBC 11.6 H (4.8-10.8) X10*3/uL RBC 3.48 L (4.20-5.50) X10*6/uL Hgb 9.2 L (12.0-16.0) g/dl Hct 29.0 L (37-47) % MCV 83.3 (80-98) fL MCH 26.4 L (27.0-33.0) pg MCHC 31.7 (31.0-35.0) g/dl RDW 19.3 H (11.0-16.0) % Plt Count 467 H (160-400) X10*3/uL MPV 9.6 (9.4-12.3) fL Immature Gran % (Auto) 0.8 H (0.0-0.4) % Neut % (Auto) 75.7 H (45-73) % Lymph % (Auto) 10.4 L (20-40) % [place] % (Auto) 12.4 H (2-11) % Eos % (Auto) 0.5 (0-4) % Baso % (Auto) 0.2 (0-2) % Lymph # (Auto) 1.2 (1.2-4.9) X10*3/uL [place] # (Auto) 1.4 H (0.1-1.2) X10*3/uL Eos # (Auto) 0.1 (0.0-0.4) X10*3/uL Baso # (Auto) 0.0 (0.0-0.2) X10*3/uL Abs Immat Gran (auto) 0.09 H (0.00-0.03) X10*3/uL Absolute Neuts (auto) 8.8 H (2.0-8.3) X10*3/uL Absolute Nucleated RBC 0.000 (0.0-0.012) X10*3/uL Nucleated RBC % (auto) 0.0 (0.0-0.2) /100WBC PT 12.8 (9.9-13.0) SEC INR 1.1 (0.9-1.1) Sodium 137 (135-145) mmol/L Potassium 4.2 (3.3-5.1) mmol/L Chloride 102 (96-108) mmol/L Carbon Dioxide 25 (22-29) mmol/L Anion Gap 14 (12-20) BUN 17 H (9-16) mg/dL Creatinine 1.60 H (0.5-1.4) mg/dL Estim Creat Clear Calc 20.5 Estimated GFR 32 Random Glucose 109 (60-115) mg/dL Calcium 8.8 (8.4-10.2) mg/dL Total Bilirubin 9.3 H (0.0-1.0) mg/dL GGT 1497 H (7-33) U/L AST 234 H (5-31) U/L ALT 195 H (0-31) U/L Alkaline Phosphatase 1091 H D (39-117) U/L Troponin I High Sens (<3.5-17.0) ng/L Total Protein 5.9 L (6.5-8.0) g/dL Albumin 3.0 L (3.5-5.0) g/dL Lipase 24 (8-78) U/L 01/13/21 Range/Units 14:59 WBC (4.8-10.8) X10*3/uL RBC (4.20-5.50) X10*6/uL Hgb (12.0-16.0) g/dl Hct (37-47) % MCV (80-98) fL MCH (27.0-33.0) pg MCHC (31.0-35.0) g/dl RDW (11.0-16.0) % Plt Count (160-400) X10*3/uL MPV (9.4-12.3) fL Immature Gran % (Auto) (0.0-0.4) % Neut % (Auto) (45-73) % Lymph % (Auto) (20-40) % [place] % (Auto) (2-11) % Eos % (Auto) (0-4) % Baso % (Auto) (0-2) % Lymph # (Auto) (1.2-4.9) X10*3/uL [place] # (Auto) (0.1-1.2) X10*3/uL Eos # (Auto) (0.0-0.4) X10*3/uL Baso # (Auto) (0.0-0.2) X10*3/uL Abs Immat Gran (auto) (0.00-0.03) X10*3/uL Absolute Neuts (auto) (2.0-8.3) X10*3/uL Absolute Nucleated RBC (0.0-0.012) X10*3/uL Nucleated RBC % (auto) (0.0-0.2) /100WBC PT (9.9-13.0) SEC INR (0.9-1.1) Sodium (135-145) mmol/L Potassium (3.3-5.1) mmol/L Chloride (96-108) mmol/L Carbon Dioxide (22-29) mmol/L Anion Gap (12-20) BUN (9-16) mg/dL Creatinine (0.5-1.4) mg/dL Estim Creat Clear Calc Estimated GFR Random Glucose (60-115) mg/dL Calcium (8.4-10.2) mg/dL Total Bilirubin (0.0-1.0) mg/dL GGT (7-33) U/L AST (5-31) U/L ALT (0-31) U/L Alkaline Phosphatase (39-117) U/L Troponin I High Sens 4.1 (<3.5-17.0) ng/L Total Protein (6.5-8.0) g/dL Albumin (3.5-5.0) g/dL Lipase (8-78) U/L Imaging Data CT scan - abdomen: Radiologist's impression: CT/CT abdomen pelvis wo con IMPRESSION: *? Small left pleural effusion is new compared to 12/27/2020. *? Again noted is omental caking/peritoneal carcinomatosis with moderate to large volume of ascitic fluid in the abdomen and pelvis, similar compared to 12/27/2020. The loculated fluid in the right upper quadrant anterior to the hepatic flexure of the colon is unchanged. No bowel obstruction. *? Persistent [id number] bilateral hydroureteronephrosis. *? Stomach is moderately distended. There appears to be wall thickening in the antropyloric region. In this patient with history of gastric carcinoma, a developing gastric outlet obstruction is not confidently excluded on this test. *? The right pelvic mass, presumably representing adnexal region metastasis rather than a primary adnexal tumor, is new compared to 06/05/2020 and not significantly changed in size compared to 12/27/2020. 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 Patient Disposition: Home, Self-Care Instructions: Acute Liver Failure (DC), Ascites (ED) Additional Instructions: Follow-up with your oncologist tomorrow as scheduled for further management Pain medicine as advised Prescriptions: New oxycodone 5 mg tablet 5 mg PO Q6H PRN (Reason: Pain, Moderate) Qty: 20 RF: 0 No Action ondansetron HCl [Zofran] 8 mg Tablet 8 mg PO Q8H PRN (Reason: Nausea) Qty: 30 RF: 0 polyethylene glycol 3350 [Miralax] 17 gram Powder In Packet 17 g PO DAILY PRN (Reason: Constipation) RF: 0 amlodipine 5 mg Tablet 5 mg PO BID RF: 0 magnesium hydroxide [Milk of Magnesia] 400 mg/5 mL Suspension 5 ml PO BEDTIME PRN (Reason: Constipation) RF: 0 pantoprazole 40 mg Tablet,Delayed Release (Dr/Ec) 40 mg PO BID RF: 0 spironolactone 25 mg Tablet 25 mg PO DAILY RF: 0 acetaminophen [Tylenol] 325 mg Tablet 650 mg PO Q4H PRN (Reason: Pain) RF: 0 dexamethasone 4 mg Tablet 4 mg PO BID Qty: 30 RF: 2 diphenoxylate-atropine [Lomotil] 2.5-0.025 mg Tablet 1 tab PO BID Qty: 30 RF: 0 tramadol 50 mg Tablet 100 mg PO BID PRN (Reason: Pain) Qty: 120 RF: 0 sennosides [Senna Laxative] 8.6 mg Tablet 8.6 mg PO BEDTIME PRN (Reason: Constipation) Qty: 30 RF: 3 lorazepam [Ativan] 0.5 mg tablet 0.5 mg PO TID PRN (Reason: anxiety) Qty: 10 RF: 0 Print Language: Estonian
[2021-01-13] MEDS: oxyCODONE HCl Immed Release 5 MG TABLET PO (17:45)
== END 2021-01-13 18:09 | disposition home or self-care (01) ==
PROVIDERS: Emergency Provider Internal Medicine
DX: C16.9 Malignant neoplasm of stomach, unspecified (principal); R07.9 Chest pain, unspecified; R11.2 Nausea with vomiting, unspecified; R10.9 Unspecified abdominal pain; R17 Unspecified jaundice; Z79.899 Other long term (current) drug therapy
CPT/HCPCS: 36415; 71250; 74176; 80053; 82977; 83690; 84484; 85025; 85610; 93005; 99284

== ENCOUNTER 2021-01-14 09:30 | Outpatient (RCR) | payer MEDICARE, MEDICAID, SELFPAY ==
[2020-03-15 12:44] VITALS: BP 143/67; PULSE 82; RESP 18; TEMP 36.1; O2SAT 99
[2020-03-15 12:46] VITALS: BMI 26.0
--- NOTE | 2020-03-15 15:43 | PC.NURSE ---
pt here for 5FU takedown. She has no c/o. Port flushed per protocol.
[2020-03-28 11:38] VITALS: BP 155/69; PULSE 101; RESP 18; TEMP 36.8; O2SAT 98; BMI 25.7
--- NOTE | 2020-03-28 11:58 | PM.HEMONCPN ---
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 Multiple enlarged lymph nodes partially visualized within the upper mediastinum. Thyroid gland is normal. Airway widely patent. No cord compression. MRI abdomen performed July 04 revealed mild fullness of common duct 9 mm in, no extrinsic compression or intraluminal filling defect. Tiny gallbladder polyps. No hepatosplenomegaly or lymphadenopathy. PET-CT performed 09/06/2019 at [facility] shows diffuse lymphadenopathy with increased FDG activity ranging from 6.6-15.1. No bulky lymphadenopathy, lymph node size varying from 1.2 to 1.9 cm. Diffuse activity throughout the spine, increased activity in sternum and right posterior 11th rib likely related to marrow activity or involvement. Core biopsy of left supraclavicular lymph node was read as atypical lymphoid proliferation consistent with lymphoma, favor diagnosis of classical Hodgkin lymphoma. Excision lymph node biopsy was recommended. Screening hepatitis serology was negative. Echocardiogram was normal with EF of 70%. Pulmonary function tests in August 2019 revealed moderate obstructive ventilatory defect. Probable underlying asthma. Diffusion capacity is moderately decreased. Excision biopsy of lymph node performed 08/31/19; sent to [facility], pathology: Alk negative Anaplastic large-cell lymphoma. IHC shows strong positivity for CD30, CD45 weak to moderate, CD 8, CD20 variable, OCT2 weak, BOB1 weak, MUM1/CD 15 positive in subset. Negative for CD20, Pax5, CD79a, ALK, CD3, CD5, CD4, KEITH and cytokeratin. PCR clonal a T studies positive for clonal TCR gamma, TCR beta and IGH while IGK was negative. IHC performed at [facility] showed large atypical cells positive for CD 57, CD 43, perforin, negative for CD7, CD56, CD 19, CD 22 and PAX5. Insitu hybridization for EBV showed positively stains scattered lymphoid cells of variable size consistent with prior infection however large atypical cells were negative. Bone marrow aspiration/biopsy performed 09/21/2019 however was nondiagnostic. Procedure was difficult associated with some easy bleeding locally. 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 International prognostic index 4-5, high risk group. She received chemotherapy with CHOP x2 followed by CHP plus brentuximab x4, from 09/26/2019 to 01/25/2020. PET scan performed 12/02/2019 at [facility] after cycle 4 showed complete metabolic response with no abnormal activity. 2. Bilateral hip pain. CT pelvis with contrast showed mild arthritis but no lytic or suspicious lesions. Enlarged uterus with large fibroids measuring up to 5.8 cm. Bone scan performed 03/04 showed; Very prominent abnormalities in the posterior pelvis are likely due to recent sacral fractures. Metastatic disease would be a much less likely explanation for these abnormalities because of the fairly symmetrical appearance bilaterally. 2. Multiple abnormalities are present in the calvarium and these are suspicious for metastatic disease. Paget's disease of bone might also be responsible for this appearance but the heterogeneity present is atypical for the latter. . She had a brain MRI with and without contrast on 03/05/2020 which revealed no evidence of intracranial metastatic disease. Few lucent foci at the vertex of the calvarium, nonspecific findings. - Time Spent With Patient Total time spent is greater than 50% in coordination of care (as documented) at patient's floor/unit and/or counseling patient: Greater than 35 minutes
--- NOTE | 2020-03-28 12:37 | MHC.HEMONC ---
pt did not have med list for reconciliation. She was here with her dtr to discuss treatment option(s) due to not tolerating Irinotecan. Dr Villatoro discussed single agent XELODA. [facility] to [facility]. Pt will call us when med is delivered for plan.
--- NOTE | 2020-03-28 13:30 | PM.HEMONCPN ---
Medical Summary - Medical Summary Chief complaint: Follow-up Medical Summary: Diagnosis: Metastatic Gastric Cancer August 2019 Admitted in August 2019 with complaints of abdominal pain, nausea/emesis and weight loss. Chronic reflux symptoms for many years. Imaging with CT abdomen/pelvis without contrast revealed multiple lung nodules suspicious for metastatic disease, moderate abdominal ascites, mesenteric nodules around the stomach and upper abdomen suspicious for carcinomatosis, omental thickening, diffuse thickening of wall of stomach. Hydronephrosis of right kidney at the level of right adnexa. CEA elevated 23.7, CA 27-29 normal. EGD performed 09/01/2019 revealed multiple areas of gastric ulceration associated with induration and friability with poor gastric distention. 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 Immunohistochemistry for HER2 negative. Staging whole-body PET-CT September 2019 at [facility] revealed mildly increased FDG uptake within the stomach, SUV 3.8. Mild increased activity in epigastric/perigastric lymph node SUV 3, FDG uptake within nodular densities within anterior omentum SUV 2.3 all concerning for metastatic disease. No additional FDG activity in neck, chest, abdomen or pelvis. No FDG uptake in small pulmonary nodules. She started palliative chemotherapy with modified FOLFOX regimen on 09/13/2019. Oxaliplatin M discontinued in January 2020 because of allergic/infusion reaction which was moderately severe. FOLFIRI regimen started on 02/14/2020. Medical and Surgical History Right breast cancer 1992, status post lumpectomy, chemotherapy and radiation at [facility] Hypertension Chronic GERD Metastatic gastric cancer H pylori positive PAST SURGICAL HISTORY: Right breast lumpectomy Family History Mother of ovarian cancer at age 35. She has 2 half sisters that are healthy. Her father of an aneurysm at age 77. No other cancer in her family. Social History She lives at home with her . No history of smoking or alcohol use. One of her daughters lives at home with her. Another daughter lives close by. Menstrual History Postmenopausal Interval History Interval history: Patient is here in follow-up. She is doing much better now that she has been off chemotherapy with irinotecan. She had side effects that were somewhat intolerable. She was feeling very tired, nauseous, occasional diarrhea and general feeling of being unwell. She has not received any treatment in over 2 weeks and is feeling a lot better. She however would like to receive some treatment but less intensive to keep her cancer at [place]. She denies any other complaints today. Review of Systems - Constitutional Reports as per HPI, Reports no additional constitutional complaints Oncology Screenings - ECOG Performance Status ECOG Performance Status: 1 Home Medications and Allergies Allergies Allergy/AdvReac Type Severity Reaction Status Date / Time oxaliplatin [OXALIPLATIN] Allergy Intermediate ITCHING Unverified 03/01/20 15:43 Exam Vital signs: Vital Signs Temp 98.3 F 03/28/20 11:38 Pulse 101 H 03/28/20 11:38 Resp 18 03/28/20 11:38 BP 155/69 H 03/28/20 11:38 Pulse Ox 98 03/28/20 11:38 Intake & Output 03/27/20 03/28/20 03/28/20 18:59 06:59 18:59 Other: Weight 57.663 kg Weight 57.663 kg Body Mass Index 25.7 - Constitutional Present: no acute distress - Routine HEENT Exam Head: Present: normal inspection Eye: Present: EOMI - Routine Neck Exam Present: normal inspection - Routine Respiratory Exam Present: CTAB - Routine Cardiovascular Exam Cardiovascular: Present: RRR, S1, S2 Progress Note: A/P (1) Gastric cancer Status: Chronic Assessment and plan: Impression and Plan: 1. 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 Immunohistochemistry for HER2 negative. PDL-1 expression-combined positive score of 30. She started palliative chemotherapy with modified FOLFOX regimen on 09/13/2019. Oxaliplatin discontinued in January 2020 because of allergic/infusion reaction which was moderately severe. FOLFIRI regimen started on 02/14/2020. In March 2020, she decided she did not want anymore treatment with multi agent chemotherapy because of side effects. Today, we discussed treatment with single agent Xeloda 1000 milligram/meter squared b.i.d. day 1-14 Q 21 days. If she has side effects to this or progressive disease on this regimen, immunotherapy can be given based on her PDL1 expression. We discussed possible side effects of Xeloda such as hand-foot syndrome, diarrhea, nausea and cytopenias. She is willing to proceed with this treatment. All their questions were answered today. - Time Spent With Patient Total time spent is greater than 50% in coordination of care (as documented) at patient's floor/unit and/or counseling patient: 25 - 35 minutes
--- NOTE | 2020-03-28 15:43 | MHC.HEMONCSW ---
PT NOT TOLERATING IV CHEMO, REQUESTED ORAL AGENT. XELODA PRESCRIBED AND JUDE WILL GET AUTHORIZATION AND SET UP HOME DELIVERY. OTHERWISE, PT REPORTS COPING WELL, KEEPS ACTIVE.
--- NOTE | 2020-03-30 11:45 | MHC.HEMONC ---
NO PA REQUIRED FOR CAPECITABINE (XELODA) TAB 500 MG. DRUG IS COVERED UNDER PT'S MEDICAL BENEFIT. REF#: [id number] [facility] [phone].(
[2020-04-09 14:26] VITALS: BP 144/69; PULSE 95; RESP 18; TEMP 36.5; O2SAT 98
[2020-04-09 14:27] VITALS: BMI 25.7
--- NOTE | 2020-04-09 15:18 | MHC.HEMONC ---
Patient educated on PO Xeloda, labs obtained. Patient to start xeloda tomorrow 04/10/20 days 1-14 every 21 days. Follow up in 2 weeks.
[2020-04-09 15:28] LABS: MANUAL DIFF FLAG NO
[2020-04-09 15:34] LABS: Basophils Percent Auto 0.4 % (0-2); Eosinophils Absolute Auto 0.4 X10*3/uL (0.0-0.4); Eosinophils Percent Auto 4.4 % (0-4); Hematocrit 38.8 % (37-47); Hemoglobin 12.3 g/dl (12.0-16.0); Imm Gran Abs Auto 0.03 X10*3/uL (0.00-0.03); Imm Gran Pct Auto 0.4 % (0.0-0.4); Lymphocytes Absolute Auto 2.3 X10*3/uL (1.2-4.9); Lymphocytes Percent Auto 26.8 % (20-40); Mean Corpuscular HGB Conc 31.7 g/dl (31.0-35.0); Mean Corpuscular Hemoglobin 28.3 pg (27.0-33.0); Mean Corpuscular Volume 89.2 fL (80-98); Mean Platelet Volume 9.7 fL (9.4-12.3); Monocytes Percent Auto 12.4 % (2-11); Neutrophils Absolute Auto 4.7 X10*3/uL (2.0-8.3); Neutrophils Percent Auto 55.6 % (45-73); Platelet Count 298 X10*3/uL (160-400); Red Blood Count 4.35 X10*6/uL (4.20-5.50); Red Cell Distribution Width 13.7 % (11.0-16.0); White Blood Count 8.4 X10*3/uL (4.8-10.8)
[2020-04-09 16:05] LABS: Alanine Aminotransferase 12 U/L (0-31); Albumin Level 4.1 g/dL (3.5-5.0); Alkaline Phosphatase 79 U/L (39-117); Anion Gap 13 (12-20); Aspartate Amino Transferase 18 U/L (5-31); Bilirubin Total 0.4 mg/dL (0.0-1.0); Blood Urea Nitrogen 12 mg/dL (9-16); Calcium 9.3 mg/dL (8.4-10.2); Carbon Dioxide 29 mmol/L (22-29); Chloride 103 mmol/L (96-108); Creatinine Clr Calc Pharmacy 52.5; Estimated Glomerular Filt Rate > 60; Glucose Random 112 mg/dL (60-115); Potassium 4.1 mmol/l (3.3-5.1); Sodium 141 mmol/L (135-145); Total Protein 7.1 g/dL (6.5-8.0)
[2020-04-23 10:01] VITALS: BMI 25.8
[2020-04-23 10:02] VITALS: BP 167/75; PULSE 99; RESP 18; TEMP 36.7; O2SAT 98
--- NOTE | 2020-04-23 10:22 | PM.HEMONCPN ---
Medical Summary - Medical Summary Chief complaint: Body pains Medical Summary: Diagnosis: Metastatic Gastric Cancer August 2019 Admitted in August 2019 with complaints of abdominal pain, nausea/emesis and weight loss. Chronic reflux symptoms for many years. Imaging with CT abdomen/pelvis without contrast revealed multiple lung nodules suspicious for metastatic disease, moderate abdominal ascites, mesenteric nodules around the stomach and upper abdomen suspicious for carcinomatosis, omental thickening, diffuse thickening of wall of stomach. Hydronephrosis of right kidney at the level of right adnexa. CEA elevated 23.7, CA 27-29 normal. EGD performed 09/01/2019 revealed multiple areas of gastric ulceration associated with induration and friability with poor gastric distention. 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 Immunohistochemistry for HER2 negative. Staging whole-body PET-CT September 2019 at [facility] revealed mildly increased FDG uptake within the stomach, SUV 3.8. Mild increased activity in epigastric/perigastric lymph node SUV 3, FDG uptake within nodular densities within anterior omentum SUV 2.3 all concerning for metastatic disease. No additional FDG activity in neck, chest, abdomen or pelvis. No FDG uptake in small pulmonary nodules. She started palliative chemotherapy with modified FOLFOX regimen on 09/13/2019. Oxaliplatin M discontinued in January 2020 because of allergic/infusion reaction which was moderately severe. FOLFIRI regimen started on 02/14/2020. FOLFIRI regimen discontinued in March 2020 because of side effects. She was switched to maintenance Xeloda end of March 2020. Medical and Surgical History Right breast cancer 1992, status post lumpectomy, chemotherapy and radiation at [facility] Hypertension Chronic GERD Metastatic gastric cancer H pylori positive PAST SURGICAL HISTORY: Right breast lumpectomy Family History Mother of ovarian cancer at age 35. She has 2 half sisters that are healthy. Her father of an aneurysm at age 77. No other cancer in her family. Social History She lives at home with her . No history of smoking or alcohol use. One of her daughters lives at home with her. Another daughter lives close by. Menstrual History Postmenopausal Interval History Interval history: Patient is here in follow-up. She reports body pains that got worse a few days after starting Xeloda. She says the pain starts in the hips and radiates down both her legs. She also noticed swelling of her feet/ankles. She feels tired and achy overall. She had 1 or 2 episodes of nausea which got controlled with antiemetics. She denies diarrhea or abdominal pain. No fever or chills. No chest pain or cough. She did not notice any rash of her hands or feet. Review of Systems - Constitutional Reports as per HPI, Reports no additional constitutional complaints Oncology Screenings - ECOG Performance Status ECOG Performance Status: 1 Home Medications and Allergies Home Medications Medication Instructions Recorded Confirmed Type amlodipine 5 mg PO BID 04/23/20 04/23/20 History capecitabine 1,500 mg PO BID 04/23/20 04/23/20 History furosemide 20 mg PO DAILY 04/23/20 04/23/20 History magnesium hydroxide [Milk of 5 ml PO BEDTIME PRN 04/23/20 04/23/20 History Magnesia] ondansetron HCl [Zofran] 8 mg PO Q8H PRN 04/23/20 04/23/20 History pantoprazole 40 mg PO DAILY 04/23/20 04/23/20 History polyethylene glycol 3350 [Miralax] 17 g PO DAILY PRN 04/23/20 04/23/20 History sennosides [Senna Laxative] 8.6 mg PO BEDTIME PRN 04/23/20 04/23/20 History tramadol 50 mg PO Q6H PRN 04/23/20 04/23/20 History Allergies Allergy/AdvReac Type Severity Reaction Status Date / Time oxaliplatin [OXALIPLATIN] Allergy Severe Itching Unverified 04/23/20 10:18 Exam Vital signs: Vital Signs Temp 98.1 F 04/23/20 10:02 Pulse 99 04/23/20 10:02 Resp 18 04/23/20 10:02 BP 167/75 H 04/23/20 10:02 Pulse Ox 98 04/23/20 10:02 Intake & Output 04/22/20 04/23/20 04/23/20 18:59 06:59 18:59 Other: Weight 58.1 kg Weight 58.1 kg Body Mass Index 25.8 - Constitutional Present: no acute distress - Routine HEENT Exam Head: Present: normal inspection - Routine Neck Exam Present: normal inspection - Routine Respiratory Exam Present: CTAB - Routine Cardiovascular Exam Cardiovascular: Present: RRR, S1, S2 Data - Labs CBC & Chem 7: 04/09/20 15:04 04/09/20 15:04 Progress Note: A/P (1) Gastric cancer Status: Chronic Assessment and plan: 1. 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 Immunohistochemistry for HER2 negative. PDL-1 expression-combined positive score of 30. She started palliative chemotherapy with modified FOLFOX regimen on 09/13/2019. Oxaliplatin discontinued in January 2020 because of allergic/infusion reaction which was moderately severe. FOLFIRI regimen started on 02/14/2020. She started single agent Xeloda 1000 milligram/meter squared b.i.d. day 1-14 Q 21 days end of March. She is complaining of moderate side effects of body aches and fatigue. Her quality of life has declined significantly with above treatment. I have asked her to hold Xeloda for the next month. She has minimal burden of disease and her last CEA was below 3. She will be reassessed for treatment in 1 month. - Time Spent With Patient Total time spent is greater than 50% in coordination of care (as documented) at patient's floor/unit and/or counseling patient: 15 - 24 minutes
[2020-04-23] MEDS: Alteplase Cath Clear 2 MG VIAL INTRACATH (12:02)
--- NOTE | 2020-04-23 14:04 | MHC.HEMONC ---
Unable to obtain blood return through port. Dr. Villatoro notified. Cathflo ordered and administered at 1203 with positive blood return but patient was drawn peripherally due to not enough blood for tubes.
[2020-04-23 14:38] LABS: MANUAL DIFF FLAG NO
[2020-04-23 14:43] LABS: Basophils Percent Auto 0.3 % (0-2); Eosinophils Absolute Auto 0.3 X10*3/uL (0.0-0.4); Eosinophils Percent Auto 4.1 % (0-4); Hematocrit 36.1 % (37-47); Hemoglobin 11.5 g/dl (12.0-16.0); Imm Gran Abs Auto 0.02 X10*3/uL (0.00-0.03); Imm Gran Pct Auto 0.3 % (0.0-0.4); Lymphocytes Absolute Auto 1.9 X10*3/uL (1.2-4.9); Lymphocytes Percent Auto 24.9 % (20-40); Mean Corpuscular HGB Conc 31.9 g/dl (31.0-35.0); Mean Corpuscular Hemoglobin 28.7 pg (27.0-33.0); Monocytes Absolute Auto 0.8 X10*3/uL (0.1-1.2); Neutrophils Absolute Auto 4.5 X10*3/uL (2.0-8.3); Neutrophils Percent Auto 59.4 % (45-73); Platelet Count 285 X10*3/uL (160-400); Red Blood Count 4.01 X10*6/uL (4.20-5.50); Red Cell Distribution Width 14.1 % (11.0-16.0); White Blood Count 7.6 X10*3/uL (4.8-10.8)
[2020-04-23 15:07] LABS: Alanine Aminotransferase 13 U/L (0-31); Alkaline Phosphatase 67 U/L (39-117); Anion Gap 14 (12-20); Aspartate Amino Transferase 18 U/L (5-31); Bilirubin Total 0.4 mg/dL (0.0-1.0); Blood Urea Nitrogen 11 mg/dL (9-16); Calcium 8.5 mg/dL (8.4-10.2); Carbon Dioxide 29 mmol/L (22-29); Chloride 100 mmol/L (96-108); Creatinine Clr Calc Pharmacy 50.7; Estimated Glomerular Filt Rate > 60; Glucose Random 119 mg/dL (60-115); Potassium 4.3 mmol/l (3.3-5.1); Sodium 139 mmol/L (135-145); Total Protein 6.8 g/dL (6.5-8.0)
[2020-05-25 13:58] VITALS: BMI 26.4
[2020-05-25 13:59] VITALS: BP 152/67; PULSE 97; RESP 18; TEMP 36.3; O2SAT 98
--- NOTE | 2020-05-25 14:02 | PM.HEMONCPN ---
Medical Summary - Medical Summary Date of Service: 05/25/20 Chief complaint: Generalized body aches Medical Summary: Diagnosis: Metastatic Gastric Cancer August 2019 Admitted in August 2019 with complaints of abdominal pain, nausea/emesis and weight loss. Chronic reflux symptoms for many years. Imaging with CT abdomen/pelvis without contrast revealed multiple lung nodules suspicious for metastatic disease, moderate abdominal ascites, mesenteric nodules around the stomach and upper abdomen suspicious for carcinomatosis, omental thickening, diffuse thickening of wall of stomach. Hydronephrosis of right kidney at the level of right adnexa. CEA elevated 23.7, CA 27-29 normal. EGD performed 09/01/2019 revealed multiple areas of gastric ulceration associated with induration and friability with poor gastric distention. 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 Immunohistochemistry for HER2 negative. Staging whole-body PET-CT September 2019 at [facility] revealed mildly increased FDG uptake within the stomach, SUV 3.8. Mild increased activity in epigastric/perigastric lymph node SUV 3, FDG uptake within nodular densities within anterior omentum SUV 2.3 all concerning for metastatic disease. No additional FDG activity in neck, chest, abdomen or pelvis. No FDG uptake in small pulmonary nodules. She started palliative chemotherapy with modified FOLFOX regimen on 09/13/2019. Oxaliplatin M discontinued in January 2020 because of allergic/infusion reaction which was moderately severe. FOLFIRI regimen started on 02/14/2020. FOLFIRI regimen discontinued in March 2020 because of side effects. She was switched to maintenance Xeloda end of March 2020. Interval History Interval history: Patient is here in follow-up. She has been off Xeloda for nearly a month. Unfortunately, there has been no change in how she feels. She continues to have achiness in all her joints specifically her shoulders and back. She has chronic leg swelling. She denies any chest pain or shortness of breath. She was tested for COVID and was negative. She plans to go to her son in [place] for the holidays. She denies abdominal pain, loss of appetite or change in bowel habits. She is willing to restart Xeloda after the holidays. She is on tramadol for pain but it is not helping. Review of Systems - Constitutional Reports as per HPI, Reports no additional constitutional complaints [facility] Medical History: Medical History (Last Updated 05/25/20 @ 14:37 by Nya Jaramillo RN) Breast cancer, right breast GERD (gastroesophageal reflux disease) Helicobacter pylori antibody positive Hypertension Family History: Family History (Last Updated 05/25/20 @ 14:38 by Nya Jaramillo, WALT) Mother Ovarian cancer Father Aneurysm Surgical History: Surgical History (Last Updated 05/25/20 @ 14:38 by Nya Jaramillo RN) History of lumpectomy of right breast Home Medications and Allergies Home Medications Medication Instructions Recorded Confirmed Type amlodipine 5 mg PO BID 04/23/20 04/23/20 History capecitabine 1,500 mg PO BID 04/23/20 04/23/20 History magnesium hydroxide [Milk of 5 ml PO BEDTIME PRN 04/23/20 04/23/20 History Magnesia] ondansetron HCl [Zofran] 8 mg PO Q8H PRN 04/23/20 04/23/20 History pantoprazole 40 mg PO BID 04/23/20 05/25/20 History polyethylene glycol 3350 [Miralax] 17 g PO DAILY PRN 04/23/20 04/23/20 History sennosides [Senna Laxative] 8.6 mg PO BEDTIME PRN 04/23/20 04/23/20 History tramadol 50 mg PO Q6H PRN 04/23/20 04/23/20 History Allergies Allergy/AdvReac Type Severity Reaction Status Date / Time oxaliplatin [OXALIPLATIN] Allergy Severe Itching Unverified 04/23/20 10:18 Exam Vital signs: Vital Signs Temp 97.3 F 05/25/20 13:59 Pulse 97 05/25/20 13:59 Resp 18 05/25/20 13:59 BP 152/67 H 05/25/20 13:59 Pulse Ox 98 05/25/20 13:59 Intake & Output 05/24/20 05/25/20 05/25/20 18:59 06:59 18:59 Other: Weight 59.3 kg Weight 59.3 kg Body Mass Index 26.4 - Constitutional Present: no acute distress - Routine HEENT Exam Head: Present: normal inspection - Routine Neck Exam Present: normal inspection - Routine Respiratory Exam Present: CTAB - Routine Cardiovascular Exam Cardiovascular: Present: RRR, S1, S2 Data - Labs CBC & Chem 7: 04/23/20 14:30 04/23/20 14:30 Labs: 03/15/20 12:37 Heparin Sodium,Porcine Flush 500 unit 0.9 % Sodium Chloride Flush [NS Flush] 5 ml IVFLUSH ONCE 03/15/20 12:46 Heparin Sodium,Porcine Flush 500 unit IVFLUSH .STK-MED ONE 04/09/20 15:04 Carcinoembryonic Antigen Routine Complete Blood Count Auto Diff Routine Comprehensive Met. Panel Routine 04/23/20 10:51 Heparin Sodium,Porcine Flush 500 unit 0.9 % Sodium Chloride Flush [NS Flush] 5 ml IVFLUSH ONCE 04/23/20 11:24 Alteplase Cath Clear [Cathflo Activase] 2 mg INTRACATH ONCE ONE 04/23/20 13:41 Heparin Sodium,Porcine Flush 500 unit IVFLUSH .STK-MED ONE 04/23/20 14:30 Carcinoembryonic Antigen Routine Complete Blood Count Auto Diff Routine Comprehensive Met. Panel Routine Laboratory Last Values WBC 7.6 X10*3/uL (4.8-10.8) 04/23/20 14:30 RBC 4.01 X10*6/uL (4.20-5.50) L 04/23/20 14:30 Hgb 11.5 g/dl (12.0-16.0) L 04/23/20 14:30 Hct 36.1 % (37-47) L 04/23/20 14:30 MCV 90.0 fL (80-98) 04/23/20 14:30 MCH 28.7 pg (27.0-33.0) 04/23/20 14:30 MCHC 31.9 g/dl (31.0-35.0) 04/23/20 14:30 RDW 14.1 % (11.0-16.0) 04/23/20 14:30 Plt Count 285 X10*3/uL (160-400) 04/23/20 14:30 MPV 10.0 fL (9.4-12.3) 04/23/20 14:30 Immature Gran % (Auto) 0.3 % (0.0-0.4) 04/23/20 14:30 Neut % (Auto) 59.4 % (45-73) 04/23/20 14:30 Lymph % (Auto) 24.9 % (20-40) 04/23/20 14:30 [place] % (Auto) 11.0 % (2-11) 04/23/20 14:30 Eos % (Auto) 4.1 % (0-4) H 04/23/20 14:30 Baso % (Auto) 0.3 % (0-2) 04/23/20 14:30 Lymph # (Auto) 1.9 X10*3/uL (1.2-4.9) 04/23/20 14:30 [place] # (Auto) 0.8 X10*3/uL (0.1-1.2) 04/23/20 14:30 Eos # (Auto) 0.3 X10*3/uL (0.0-0.4) 04/23/20 14:30 Baso # (Auto) 0.0 X10*3/uL (0.0-0.2) 04/23/20 14:30 Abs Immat Gran (auto) 0.02 X10*3/uL (0.00-0.03) 04/23/20 14:30 Absolute Neuts (auto) 4.5 X10*3/uL (2.0-8.3) 04/23/20 14:30 Absolute Nucleated RBC 0.000 X10*3/uL (0.0-0.012) 04/23/20 14:30 Nucleated RBC % (auto) 0.0 /100WBC (0.0-0.2) 04/23/20 14:30 Sodium 139 mmol/L (135-145) 04/23/20 14:30 Potassium 4.3 mmol/l (3.3-5.1) 04/23/20 14:30 Chloride 100 mmol/L (96-108) 04/23/20 14:30 Carbon Dioxide 29 mmol/L (22-29) 04/23/20 14:30 Anion Gap 14 (12-20) 04/23/20 14:30 BUN 11 mg/dL (9-16) 04/23/20 14:30 Creatinine 0.79 mg/dL (0.5-1.4) 04/23/20 14:30 Estim Creat Clear Calc 50.7 04/23/20 14:30 Estimated GFR > 60 04/23/20 14:30 Random Glucose 119 mg/dL (60-115) H 04/23/20 14:30 Calcium 8.5 mg/dL (8.4-10.2) D 04/23/20 14:30 Total Bilirubin 0.4 mg/dL (0.0-1.0) 04/23/20 14:30 AST 18 U/L (5-31) 04/23/20 14:30 ALT 13 U/L (0-31) 04/23/20 14:30 Alkaline Phosphatase 67 U/L (39-117) 04/23/20 14:30 Total Protein 6.8 g/dL (6.5-8.0) 04/23/20 14:30 Albumin 4.0 g/dL (3.5-5.0) 04/23/20 14:30 Carcinoembryonic Ag 2.70 mg/mL 04/23/20 14:30 Progress Note: A/P (1) Gastric cancer Status: Chronic Assessment and plan: 1. 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 Immunohistochemistry for HER2 negative. PDL-1 expression-combined positive score of 30. She started palliative chemotherapy with modified FOLFOX regimen on 09/13/2019. Oxaliplatin discontinued in January 2020 because of allergic/infusion reaction which was moderately severe. FOLFIRI regimen started on 02/14/2020. She started single agent Xeloda 1000 milligram/meter squared b.i.d. day 1-14 Q 21 days end of March. She stopped taking it from 04/09/2020 because of generalized body aches and not feeling well overall. However stopping Xeloda did not make any difference and she still feels the same way. For her chronic arthralgias I have recommended that she take Tylenol arthritis 2 tablets once a day. At this time I have recommended reimaging with CT chest/abdomen pelvis, her last scan was in November. She will resume Xeloda once she returns from [place]. Follow-up in 1 month. - Time Spent With Patient Total time spent is greater than 50% in coordination of care (as documented) at patient's floor/unit and/or counseling patient: 15 - 24 minutes
[2020-05-25 15:07] LABS: MANUAL DIFF FLAG NO
--- NOTE | 2020-05-25 15:07 | MHC.HEMONC ---
Pt here for port flush, labs, and follow up with Dr Villatoro. Is stating she is still feeling some pain all over. She had stopped taking oral chemo med with no relief of the pain. Takes tramadol with some relief. Is also c/o of some swelling in her feet, which is bothering her. She does have bilat non pitting edema to ankles and feet. Dr Villatoro in to see pt. Pt will restart her oral chemo med, but is planning a trip and will wait until she returns to start. Port was accessed, and labs were obtained. Pt to return in Jun 2020 for follow up, appointment scheduled.
[2020-05-25 15:23] LABS: Basophils Percent Auto 0.3 % (0-2); Eosinophils Absolute Auto 0.1 X10*3/uL (0.0-0.4); Eosinophils Percent Auto 1.6 % (0-4); Hematocrit 36.8 % (37-47); Hemoglobin 11.6 g/dl (12.0-16.0); Imm Gran Abs Auto 0.02 X10*3/uL (0.00-0.03); Imm Gran Pct Auto 0.2 % (0.0-0.4); Lymphocytes Absolute Auto 1.6 X10*3/uL (1.2-4.9); Lymphocytes Percent Auto 17.8 % (20-40); Mean Corpuscular HGB Conc 31.5 g/dl (31.0-35.0); Mean Corpuscular Hemoglobin 28.4 pg (27.0-33.0); Mean Corpuscular Volume 90.2 fL (80-98); Monocytes Percent Auto 11.2 % (2-11); Neutrophils Absolute Auto 6.1 X10*3/uL (2.0-8.3); Neutrophils Percent Auto 68.9 % (45-73); Platelet Count 342 X10*3/uL (160-400); Red Blood Count 4.08 X10*6/uL (4.20-5.50); Red Cell Distribution Width 14.6 % (11.0-16.0); White Blood Count 8.9 X10*3/uL (4.8-10.8)
--- NOTE | 2020-05-25 15:26 | MHC.HEMONCSW ---
PATIENT SEEN IN FOLLOW UP REQUESTING ANOTHER HOUSING LETTER BUT NEEDS TO GET BACK TO ME WITH SPECIFICS. SHE CONTINUES WITH PAIN AND WILL RESUME HER XELODA AFTER THE HOLIDAYS. DENIES STRESS OR COMPLAINTS OF ANY KIND AT THIS TIME. EDUCATION AND SUPPORT PROVIDED. PATIENT IS AWARE OF MY AVAILABILITY.
[2020-05-25 15:58] LABS: Alanine Aminotransferase 58 U/L (0-31); Albumin Level 3.9 g/dL (3.5-5.0); Alkaline Phosphatase 135 U/L (39-117); Anion Gap 14 (12-20); Aspartate Amino Transferase 125 U/L (5-31); Bilirubin Total 0.4 mg/dL (0.0-1.0); Blood Urea Nitrogen 12 mg/dL (9-16); Calcium 8.7 mg/dL (8.4-10.2); Carbon Dioxide 25 mmol/L (22-29); Chloride 104 mmol/L (96-108); Creatinine Clr Calc Pharmacy 53.1; Estimated Glomerular Filt Rate > 60; Glucose Random 100 mg/dL (60-115); Sodium 139 mmol/L (135-145); Total Protein 7.1 g/dL (6.5-8.0)
--- NOTE | 2020-05-29 08:41 | MHC.HEMONC ---
Spoke to Nina patients daughter, states patient is no longer traveling and ? if she should resume on xeloda pills. Patient also states ABD pain and distention. Denies N/V/D. states eating and drinking well and having normal BM's. Dr. 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
--- NOTE | 2020-05-29 09:39 | MHC.HEMONCSW ---
no pa required for the following..... ct abd/pelvis w/o c case# [id number] ct chest w/o c case# [id number] marie in c[place] notified as well as amadeo in xray. once Radiologist approves a schedule will be made.
--- NOTE | 2020-05-29 11:34 | MHC.HEMONCSW ---
centralized scheduling is calling to schedule the patient.
--- NOTE | 2020-06-01 12:55 | MHC.HEMONC ---
CT CHEST/ABD/PEl w/o contrast - Update: Dr Villatoro inquired if scheduled yet. I spoke w Jasmyne in Centralized Scheduling. They have reached out to the pt but have not yet heard back from her, call #[phone]. they will attempt 2 more times and then will notify us via order product lister if they were unable to reach/schedule.
--- NOTE | 2020-06-01 13:09 | MHC.HEMONC ---
CALL to pt. - I spoke dann Valentin and strongly encouraged her to tow picker her phone b/c a CT materials scheduler will be calling her again to make an appt for he scans danny. She agrees to this plan.
--- NOTE | 2020-06-01 14:38 | MHC.HEMONC ---
CT CHEST/ABD/PEL - Pt's daughter Pam called me back. She is going to return call to centralized scheduling now to get appt for her mom.
--- NOTE | 2020-06-19 13:54 | MHC.HEMONCSW ---
PATIENT IS DECLINING, DR. CARABALLO RE-ORDERS PALLIATIVE CARE. PARACENTESIS ALSO TO BE ORDERED. PHONED INTAKE, [facility] AND L/M...ALSO, WILL FAX THEM A FACE TO FACE ENCOUNTER FORM.
--- NOTE | 2020-06-20 09:53 | MHC.HEMONCMA ---
Placed patient's order in order fascilitator, called ultrasound and scheduled patient's paracentesis. She is scheduled for 06/23/20 at 9am. I will call and let patient know.
--- NOTE | 2020-06-20 16:17 | MHC.HEMONCSW ---
RE-REFERRED TO [facility]ALL[facility]. SPOKE WITH LAINEY FRANKLIN, FAXED REFERRAL. FOR PARACENTESIS IN NEAR FUTURE. DAUGHTER AND DR. CARABALLO HAD WANTED HOSPICE BUT PATIENT REFUSED AT THIS TIME.
[2020-06-26 16:14] VITALS: BP 147/65; PULSE 88; RESP 18; TEMP 36.6; O2SAT 97; BMI 24.3
--- NOTE | 2020-06-26 16:14 | P.PNHO_ITS ---
Medical Summary - Medical Summary Date of Service: 06/26/20 Chief complaint: Follow-up Medical Summary: Diagnosis: Metastatic Gastric Cancer August 2019 Admitted in August 2019 with complaints of abdominal pain, nausea/emesis and weight loss. Chronic reflux symptoms for many years. Imaging with CT abdomen/pelvis without contrast revealed multiple lung nodules suspicious for metastatic disease, moderate abdominal ascites, mesenteric nodules around the stomach and upper abdomen suspicious for carcinomatosis, omental thickening, diffuse thickening of wall of stomach. Hydronephrosis of right kidney at the level of right adnexa. CEA elevated 23.7, CA 27-29 normal. EGD performed 09/01/2019 revealed multiple areas of gastric ulceration associated with induration and friability with poor gastric distention. 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 Immunohistochemistry for HER2 negative. Staging whole-body PET-CT September 2019 at [facility] revealed mildly increased FDG uptake within the stomach, SUV 3.8. Mild increased activity in epigastric/perigastric lymph node SUV 3, FDG uptake within nodular densities within anterior omentum SUV 2.3 all concerning for metastatic disease. No additional FDG activity in neck, chest, abdomen or pelvis. No FDG uptake in small pulmonary nodules. She started palliative chemotherapy with modified FOLFOX regimen on 09/13/2019. Oxaliplatin M discontinued in January 2020 because of allergic/infusion reaction which was moderately severe. FOLFIRI regimen started on 02/14/2020. FOLFIRI regimen discontinued in March 2020 because of side effects. She was switched to maintenance Xeloda end of March 2020. Interval History Interval history: Patient is here in follow-up. She has started back on Xeloda 2 weeks ago and tolerating it well. She gets quite bloated when she develops ascites and develops abdominal discomfort. She underwent therapeutic paracentesis yesterday and feels a lot better. She denies nausea, emesis, chest pain, shortness of breath, fever or chills. She is disappointed that the cancer has returned. She is willing to undergo chemotherapy. Review of Systems - Cardiovascular Reports no additional cardiovascular complaints - Respiratory Reports no additional respiratory complaints - Gastrointestinal Reports no additional gastrointestinal complaints [facility] Medical History: Medical History (Last Updated 05/25/20 @ 14:37 by Nya Jaramillo RN) Breast cancer, right breast GERD (gastroesophageal reflux disease) Helicobacter pylori antibody positive Hypertension Family History: Family History (Last Updated 05/25/20 @ 14:38 by Nya Jaramillo RN) Mother Ovarian cancer Father Aneurysm Surgical History: Surgical History (Last Updated 05/25/20 @ 14:38 by Nya Jaramillo RN) History of lumpectomy of right breast Smoking status: Never smoker Home Medications and Allergies Home Medications Medication Instructions Recorded Confirmed Type amlodipine 5 mg PO BID 04/23/20 06/26/20 History capecitabine 1,500 mg PO BID 04/23/20 06/26/20 History magnesium hydroxide [Milk of 5 ml PO BEDTIME PRN 04/23/20 06/26/20 History Magnesia] ondansetron HCl [Zofran] 8 mg PO Q8H PRN 04/23/20 06/26/20 History pantoprazole 40 mg PO BID 04/23/20 06/26/20 History polyethylene glycol 3350 [Miralax] 17 g PO DAILY PRN 04/23/20 06/26/20 History sennosides [Senna Laxative] 8.6 mg PO BEDTIME PRN 04/23/20 06/26/20 History tramadol 50 mg PO Q6H PRN 04/23/20 06/26/20 History spironolactone 25 mg PO DAILY 06/26/20 06/26/20 History Allergies Allergy/AdvReac Type Severity Reaction Status Date / Time oxaliplatin [OXALIPLATIN] Allergy Severe Itching Verified 06/07/20 08:16 Exam Vital signs: Vital Signs Temp 97.3 F 05/25/20 13:59 Pulse 97 05/25/20 13:59 Resp 18 05/25/20 13:59 BP 152/67 H 05/25/20 13:59 Pulse Ox 98 05/25/20 13:59 Weight 59.3 kg Body Mass Index 26.4 - Constitutional Present: no acute distress, chronically ill appearing - Routine HEENT Exam Head: Present: normal inspection - Routine Neck Exam Present: normal inspection - Routine Respiratory Exam Present: CTAB - Routine Cardiovascular Exam Cardiovascular: Present: RRR, S1, S2 Data - Labs CBC & Chem 7: 05/25/20 14:45 05/25/20 14:45 Labs: 03/15/20 12:37 Heparin Sodium,Porcine Flush 500 unit 0.9 % Sodium Chloride Flush [NS Flush] 5 ml IVFLUSH ONCE 03/15/20 12:46 Heparin Sodium,Porcine Flush 500 unit IVFLUSH .[facility] ONE 04/09/20 15:04 Carcinoembryonic Antigen Routine Complete Blood Count Auto Diff Routine Comprehensive Met. Panel Routine 04/23/20 10:51 Heparin Sodium,Porcine Flush 500 unit 0.9 % Sodium Chloride Flush [NS Flush] 5 ml IVFLUSH ONCE 04/23/20 11:24 Alteplase Cath Clear [Cathflo Activase] 2 mg INTRACATH ONCE ONE 04/23/20 13:41 Heparin Sodium,Porcine Flush 500 unit IVFLUSH .[facility] ONE 04/23/20 14:30 Carcinoembryonic Antigen Routine Complete Blood Count Auto Diff Routine Comprehensive Met. Panel Routine 05/25/20 14:12 Heparin Sodium,Porcine Flush 500 unit 0.9 % Sodium Chloride Flush [NS Flush] 5 ml IVFLUSH ONCE 05/25/20 14:21 Heparin Sodium,Porcine Flush 500 unit IVFLUSH .[facility] ONE 05/25/20 14:45 Carcinoembryonic Antigen Routine Complete Blood Count Auto Diff Routine Comprehensive Met. Panel Routine Laboratory Last Values WBC 8.9 X10*3/uL (4.8-10.8) 05/25/20 14:45 RBC 4.08 X10*6/uL (4.20-5.50) L 05/25/20 14:45 Hgb 11.6 g/dl (12.0-16.0) L 05/25/20 14:45 Hct 36.8 % (37-47) L 05/25/20 14:45 MCV 90.2 fL (80-98) 05/25/20 14:45 MCH 28.4 pg (27.0-33.0) 05/25/20 14:45 MCHC 31.5 g/dl (31.0-35.0) 05/25/20 14:45 RDW 14.6 % (11.0-16.0) 05/25/20 14:45 Plt Count 342 X10*3/uL (160-400) 05/25/20 14:45 MPV 10.0 fL (9.4-12.3) 05/25/20 14:45 Immature Gran % (Auto) 0.2 % (0.0-0.4) 05/25/20 14:45 Neut % (Auto) 68.9 % (45-73) 05/25/20 14:45 Lymph % (Auto) 17.8 % (20-40) L 05/25/20 14:45 [place] % (Auto) 11.2 % (2-11) H 05/25/20 14:45 Eos % (Auto) 1.6 % (0-4) 05/25/20 14:45 Baso % (Auto) 0.3 % (0-2) 05/25/20 14:45 Lymph # (Auto) 1.6 X10*3/uL (1.2-4.9) 05/25/20 14:45 [place] # (Auto) 1.0 X10*3/uL (0.1-1.2) 05/25/20 14:45 Eos # (Auto) 0.1 X10*3/uL (0.0-0.4) 05/25/20 14:45 Baso # (Auto) 0.0 X10*3/uL (0.0-0.2) 05/25/20 14:45 Abs Immat Gran (auto) 0.02 X10*3/uL (0.00-0.03) 05/25/20 14:45 Absolute Neuts (auto) 6.1 X10*3/uL (2.0-8.3) 05/25/20 14:45 Absolute Nucleated RBC 0.000 X10*3/uL (0.0-0.012) 05/25/20 14:45 Nucleated RBC % (auto) 0.0 /100WBC (0.0-0.2) 05/25/20 14:45 Sodium 139 mmol/L (135-145) 05/25/20 14:45 Potassium 4.0 mmol/l (3.3-5.1) 05/25/20 14:45 Chloride 104 mmol/L (96-108) 05/25/20 14:45 Carbon Dioxide 25 mmol/L (22-29) 05/25/20 14:45 Anion Gap 14 (12-20) 05/25/20 14:45 BUN 12 mg/dL (9-16) 05/25/20 14:45 Creatinine 0.76 mg/dL (0.5-1.4) 05/25/20 14:45 Estim Creat Clear Calc 53.1 05/25/20 14:45 Estimated GFR > 60 05/25/20 14:45 Random Glucose 100 mg/dL (60-115) 05/25/20 14:45 Calcium 8.7 mg/dL (8.4-10.2) 05/25/20 14:45 Total Bilirubin 0.4 mg/dL (0.0-1.0) 05/25/20 14:45 AST 125 U/L (5-31) H 05/25/20 14:45 ALT 58 U/L (0-31) H 05/25/20 14:45 Alkaline Phosphatase 135 U/L (39-117) H D 05/25/20 14:45 Total Protein 7.1 g/dL (6.5-8.0) 05/25/20 14:45 Albumin 3.9 g/dL (3.5-5.0) 05/25/20 14:45 Carcinoembryonic Ag 22.70 mg/mL D 05/25/20 14:45 Progress Note: A/P (1) Gastric cancer Status: Chronic Assessment and plan: 1. 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 Immunohistochemistry for HER2 negative. PDL-1 expression-combined positive score of 30. She started palliative chemotherapy with modified FOLFOX regimen on 09/13/2019. Oxaliplatin discontinued in January 2020 because of allergic/infusion reaction which was moderately severe. FOLFIRI regimen started on 02/14/2020. She started single agent Xeloda 1000 milligram/meter squared b.i.d. day 1-14 Q 21 days end of March. Abdomen pelvis on 06/05/2020 revealed new moderate to large amount of ascites, infiltration and nodularity of greater omentum worrisome for carcinomatosis. Stable CT chest no evidence of metastatic disease. She stopped taking it from 04/09/2020 because of generalized body aches and not feeling well overall. She resumed Xeloda 1500 mg b.i.d. since 06/13/2020. She will also be started back on irinotecan with Xeloda. Follow-up next week. - Time Spent With Patient Total time spent is greater than 50% in coordination of care (as documented) at patient's floor/unit and/or counseling patient: 15 - 24 minutes
--- NOTE | 2020-06-26 16:48 | MHC.HEMONC ---
Patient here for follow-up. Labs drawn. Clinical summary updated with nurse. Provider seen patient. Chemotherapy booked and given to patient.
[2020-06-26 16:54] LABS: MANUAL DIFF FLAG NO
[2020-06-26 17:03] LABS: Basophils Percent Auto 0.2 % (0-2); Eosinophils Absolute Auto 0.2 X10*3/uL (0.0-0.4); Eosinophils Percent Auto 1.8 % (0-4); Hematocrit 36.9 % (37-47); Hemoglobin 11.7 g/dl (12.0-16.0); Imm Gran Abs Auto 0.02 X10*3/uL (0.00-0.03); Imm Gran Pct Auto 0.2 % (0.0-0.4); Lymphocytes Absolute Auto 1.5 X10*3/uL (1.2-4.9); Mean Corpuscular HGB Conc 31.7 g/dl (31.0-35.0); Mean Corpuscular Hemoglobin 28.8 pg (27.0-33.0); Mean Corpuscular Volume 90.9 fL (80-98); Mean Platelet Volume 9.2 fL (9.4-12.3); Monocytes Absolute Auto 0.8 X10*3/uL (0.1-1.2); Monocytes Percent Auto 9.5 % (2-11); Neutrophils Absolute Auto 6.2 X10*3/uL (2.0-8.3); Neutrophils Percent Auto 71.3 % (45-73); Platelet Count 310 X10*3/uL (160-400); Red Blood Count 4.06 X10*6/uL (4.20-5.50); Red Cell Distribution Width 15.9 % (11.0-16.0); White Blood Count 8.7 X10*3/uL (4.8-10.8)
[2020-06-26 17:42] LABS: Alanine Aminotransferase 9 U/L (0-31); Albumin Level 3.9 g/dL (3.5-5.0); Alkaline Phosphatase 66 U/L (39-117); Anion Gap 13 (12-20); Aspartate Amino Transferase 17 U/L (5-31); Bilirubin Total 0.4 mg/dL (0.0-1.0); Blood Urea Nitrogen 14 mg/dL (9-16); Calcium 8.8 mg/dL (8.4-10.2); Carbon Dioxide 29 mmol/L (22-29); Chloride 102 mmol/L (96-108); Creatinine Clr Calc Pharmacy 50.5; Estimated Glomerular Filt Rate > 60; Glucose Random 118 mg/dL (60-115); Potassium 4.5 mmol/l (3.3-5.1); Sodium 139 mmol/L (135-145); Total Protein 6.8 g/dL (6.5-8.0)
--- NOTE | 2020-06-27 15:40 | MHC.HEMONC ---
[place] [place] TO ENQUIRE IF PT WAS STILL TAKING Capecitabine (Xeloda) FOR REFILL, BECAUSE PT INFORMED FREDDY THAT SHE IS OFF THE XELODA. DR CARABALLO TALKED WITH PT. 'S DAUGHTER. PER DR CARABALLO, PT TO HOLD ON PILLS BECAUSE SHE IS NOT COMPLIANT.DR CARABALLO WILL GIVE IV CHEMO.
[2020-07-04 10:49] VITALS: BP 153/70; PULSE 99; RESP 18; TEMP 36.7; O2SAT 98; BMI 24.7
[2020-07-04 11:43] LABS: MANUAL DIFF FLAG NO
[2020-07-04 11:48] LABS: Basophils Percent Auto 0.1 % (0-2); Eosinophils Absolute Auto 0.2 X10*3/uL (0.0-0.4); Hematocrit 34.8 % (37-47); Hemoglobin 11.4 g/dl (12.0-16.0); Imm Gran Abs Auto 0.04 X10*3/uL (0.00-0.03); Imm Gran Pct Auto 0.4 % (0.0-0.4); Lymphocytes Absolute Auto 1.8 X10*3/uL (1.2-4.9); Lymphocytes Percent Auto 19.3 % (20-40); Mean Corpuscular HGB Conc 32.8 g/dl (31.0-35.0); Mean Corpuscular Hemoglobin 29.8 pg (27.0-33.0); Mean Corpuscular Volume 90.9 fL (80-98); Mean Platelet Volume 9.4 fL (9.4-12.3); Monocytes Absolute Auto 1.4 X10*3/uL (0.1-1.2); Monocytes Percent Auto 14.9 % (2-11); Neutrophils Percent Auto 63.3 % (45-73); Platelet Count 291 X10*3/uL (160-400); Red Blood Count 3.83 X10*6/uL (4.20-5.50); Red Cell Distribution Width 17.3 % (11.0-16.0); White Blood Count 9.4 X10*3/uL (4.8-10.8)
[2020-07-04 12:14] LABS: Alanine Aminotransferase 8 U/L (0-31); Albumin Level 3.7 g/dL (3.5-5.0); Alkaline Phosphatase 69 U/L (39-117); Anion Gap 14 (12-20); Aspartate Amino Transferase 16 U/L (5-31); Bilirubin Total 0.6 mg/dL (0.0-1.0); Blood Urea Nitrogen 12 mg/dL (9-16); Calcium 8.8 mg/dL (8.4-10.2); Carbon Dioxide 25 mmol/L (22-29); Chloride 101 mmol/L (96-108); Creatinine Clr Calc Pharmacy 47.8; Estimated Glomerular Filt Rate > 60; Glucose Random 110 mg/dL (60-115); Magnesium 2.1 mg/dL (1.6-2.6); Potassium 4.2 mmol/l (3.3-5.1); Sodium 136 mmol/L (135-145); Total Protein 6.6 g/dL (6.5-8.0)
[2020-07-04] MEDS: ondansetron HCL/NS 16 MG/50 ML PIGGYBACK 200 MG IV (12:37)
[2020-07-04] MEDS: Heparin Sodium,Porcine Flush 500 UNIT/5 ML SYRINGE IVFLUSH (12:38)
[2020-07-04] MEDS: Famotidine/PF 20 MG/2 ML VIAL IVPUSH (12:38)
[2020-07-04] MEDS: Fosaprepitant Dimeglumine 150 MG in 0.9 % Sodium Chloride 145 ML 300 MG IV (12:38)
[2020-07-04] MEDS: dexAMETHasone sod phosphate/NS 12 MG/50 ML PIGGYBACK 200 MG IV (12:38)
[2020-07-04] MEDS: Atropine Sulfate 1 MG/ML VIAL 0.5 MG SUBCUT (12:38)
[2020-07-04] MEDS: IRINOTECAN HCL IV (14:07)
[2020-07-04] MEDS: DEXTROSE 5% IV (14:07)
[2020-07-12 09:12] VITALS: BP 139/86; PULSE 109; RESP 18; TEMP 36.4; O2SAT 99; BMI 23.8
[2020-07-12 09:49] LABS: Hematocrit 32.8 % (37-47); Hemoglobin 11.2 g/dl (12.0-16.0); Mean Corpuscular HGB Conc 34.1 g/dl (31.0-35.0); Mean Corpuscular Hemoglobin 29.9 pg (27.0-33.0); Mean Corpuscular Volume 87.5 fL (80-98); Mean Platelet Volume 10.5 fL (9.4-12.3); Platelet Count 129 X10*3/uL (160-400); Red Blood Count 3.75 X10*6/uL (4.20-5.50); Red Cell Distribution Width 16.6 % (11.0-16.0)
[2020-07-12] MEDS: 0.9 % Sodium Chloride 1,000 ML 500 ML IVCONT (09:52)
[2020-07-12 10:24] LABS: Alanine Aminotransferase 32 U/L (0-31); Albumin Level 3.3 g/dL (3.5-5.0); Alkaline Phosphatase 85 U/L (39-117); Anion Gap 15 (12-20); Aspartate Amino Transferase 12 U/L (5-31); Blood Urea Nitrogen 8 mg/dL (9-16); Carbon Dioxide 23 mmol/L (22-29); Chloride 98 mmol/L (96-108); Estimated Glomerular Filt Rate > 60; Glucose Random 149 mg/dL (60-115); Potassium 3.7 mmol/l (3.3-5.1); Sodium 132 mmol/L (135-145); Total Protein 5.7 g/dL (6.5-8.0)
[2020-07-12 10:34] LABS: Band Neutrophils Percent 18 % (3-5); Calcium 7.9 mg/dL (8.4-10.2); Eosinophils Percent Manual 1 % (0-4); Lymphocytes Absolute Manual 0.7 X10*3/uL (0.6-4.8); Lymphocytes Percent Manual 34 % (20-40); Monocytes Absolute Manual 0.2 X10*3/uL (0.0-1.2); Monocytes Percent Manual 9 % (2-11); Neutrophils Absolute Manual 1.1 X10*3/uL (2.2-7.9); Neutrophils Percent Manual 38 % (45-73)
[2020-07-12 10:36] LABS: Dohle Bodies PRESENT; Microcytosis 1+; Platelet Estimate SLIGHTLY DECREASED (NORMAL); Platelet Morphology Comment NORMAL; Toxic Granulation PRESENT
[2020-07-12 10:37] LABS: RBC Morphology NOTED
[2020-07-12] MEDS: ondansetron HCL/NS 16 MG/50 ML PIGGYBACK 200 MG IV (11:01)
[2020-07-12] MEDS: Acetaminophen 325 MG TABLET 650 MG PO (11:48)
[2020-07-12] MEDS: Heparin Sodium,Porcine Flush 500 UNIT/5 ML SYRINGE IVFLUSH (11:58)
--- NOTE | 2020-07-12 13:13 | MHC.HEMONC ---
Pt dtr had called yesterday to say her mom has continued with a lot of diarrhea and some nausea since tyreatment a week ago. Dr Villatoro asked that she come in this morning for labs and hydration. Pt labs drawn from port and WNL. She received a liter NS and Ondansetron IV with good effect. She judy some toast and liquids and did npt have any bowel movements. I will call in the morning to check on her. Dtr is aware she may call horse and wagon driver or here anytime.
[2020-07-17 13:48] LABS: Basophils Percent Auto 0.5 % (0-2); Eosinophils Absolute Auto 0.4 X10*3/uL (0.0-0.4); Eosinophils Percent Auto 8.9 % (0-4); Hematocrit 34.1 % (37-47); Hemoglobin 11.2 g/dl (12.0-16.0); Imm Gran Abs Auto 0.05 X10*3/uL (0.00-0.03); Imm Gran Pct Auto 1.2 % (0.0-0.4); Lymphocytes Absolute Auto 1.5 X10*3/uL (1.2-4.9); Lymphocytes Percent Auto 37.3 % (20-40); MANUAL DIFF FLAG SCAN; Mean Corpuscular HGB Conc 32.8 g/dl (31.0-35.0); Mean Corpuscular Hemoglobin 29.2 pg (27.0-33.0); Mean Platelet Volume 9.1 fL (9.4-12.3); Monocytes Percent Auto 24.9 % (2-11); Neutrophils Absolute Auto 1.1 X10*3/uL (2.0-8.3); Neutrophils Percent Auto 27.2 % (45-73); Platelet Count 285 X10*3/uL (160-400); Red Blood Count 3.83 X10*6/uL (4.20-5.50); Red Cell Distribution Width 17.1 % (11.0-16.0); SCAN SMEAR FLAG 1; White Blood Count 4.1 X10*3/uL (4.8-10.8)
[2020-07-17 14:20] LABS: Alanine Aminotransferase 13 U/L (0-31); Albumin Level 3.5 g/dL (3.5-5.0); Alkaline Phosphatase 73 U/L (39-117); Anion Gap 12 (12-20); Aspartate Amino Transferase 15 U/L (5-31); Bilirubin Total 0.6 mg/dL (0.0-1.0); Blood Urea Nitrogen 14 mg/dL (9-16); Calcium 8.3 mg/dL (8.4-10.2); Carbon Dioxide 27 mmol/L (22-29); Chloride 101 mmol/L (96-108); Creatinine Clr Calc Pharmacy 48.8; Estimated Glomerular Filt Rate > 60; Glucose Random 120 mg/dL (60-115); Potassium 3.4 mmol/L (3.3-5.1); Sodium 137 mmol/L (135-145)
[2020-07-17 15:26] LABS: SLIDE REVIEW VERIFIED
[2020-07-18 09:13] VITALS: BP 148/67; PULSE 90; RESP 18; TEMP 36.4; O2SAT 99; BMI 24.6
[2020-07-18] MEDS: ondansetron HCL/NS 16 MG/50 ML PIGGYBACK 200 MG IV (09:45)
[2020-07-18] MEDS: Atropine Sulfate 1 MG/ML VIAL 0.5 MG SUBCUT (09:47)
[2020-07-18] MEDS: dexAMETHasone sod phosphate/NS 12 MG/50 ML PIGGYBACK 200 MG IV (09:47)
[2020-07-18] MEDS: Famotidine/PF 20 MG/2 ML VIAL IVPUSH (09:47)
[2020-07-18] MEDS: Heparin Sodium,Porcine Flush 500 UNIT/5 ML SYRINGE IVFLUSH (09:48)
[2020-07-18] MEDS: Fosaprepitant Dimeglumine 150 MG in 0.9 % Sodium Chloride 145 ML 300 MG IV (10:26)
--- NOTE | 2020-07-27 10:39 | MHC.HEMONC ---
Pt [facility] RN, Rigoberto called to say that pt Tramadol 100mg every 6 hrs is not holding her pain. I called pt dtr who is her caregiver and Pam said she does c/o unrelieved pain. I spoke to Dr Villatoro, she is ordering Oxycodone to take every 8 hours as needed.
[2020-07-31 09:13] LABS: MANUAL DIFF FLAG NO
[2020-07-31 09:25] LABS: Basophils Percent Auto 0.2 % (0-2); Eosinophils Absolute Auto 0.2 X10*3/uL (0.0-0.4); Hematocrit 33.2 % (37-47); Hemoglobin 10.4 g/dl (12.0-16.0); Imm Gran Abs Auto 0.06 X10*3/uL (0.00-0.03); Imm Gran Pct Auto 0.7 % (0.0-0.4); Lymphocytes Absolute Auto 1.3 X10*3/uL (1.2-4.9); Lymphocytes Percent Auto 15.3 % (20-40); Mean Corpuscular HGB Conc 31.3 g/dl (31.0-35.0); Mean Corpuscular Hemoglobin 28.3 pg (27.0-33.0); Mean Corpuscular Volume 90.5 fL (80-98); Monocytes Absolute Auto 1.1 X10*3/uL (0.1-1.2); Neutrophils Absolute Auto 5.8 X10*3/uL (2.0-8.3); Neutrophils Percent Auto 68.8 % (45-73); Platelet Count 350 X10*3/uL (160-400); Red Blood Count 3.67 X10*6/uL (4.20-5.50); Red Cell Distribution Width 16.7 % (11.0-16.0); White Blood Count 8.4 X10*3/uL (4.8-10.8)
[2020-07-31 10:13] LABS: Alanine Aminotransferase 10 U/L (0-31); Albumin Level 3.5 g/dL (3.5-5.0); Alkaline Phosphatase 61 U/L (39-117); Anion Gap 12 (12-20); Aspartate Amino Transferase 14 U/L (5-31); Bilirubin Total 0.6 mg/dL (0.0-1.0); Blood Urea Nitrogen 7 mg/dL (9-16); Calcium 8.1 mg/dL (8.4-10.2); Carbon Dioxide 28 mmol/L (22-29); Chloride 102 mmol/L (96-108); Creatinine Clr Calc Pharmacy 56.7; Estimated Glomerular Filt Rate > 60; Glucose Random 108 mg/dL (60-115); Potassium 4.5 mmol/L (3.3-5.1); Sodium 137 mmol/L (135-145); Total Protein 6.2 g/dL (6.5-8.0)
[2020-08-01 09:12] VITALS: BP 155/73; PULSE 110; RESP 18; TEMP 36.3; O2SAT 99; BMI 24.3
[2020-08-01] MEDS: Famotidine/PF 20 MG/2 ML VIAL IVPUSH (10:19)
[2020-08-01] MEDS: ondansetron HCL/NS 16 MG/50 ML PIGGYBACK 200 MG IV (10:19)
[2020-08-01] MEDS: dexAMETHasone sod phosphate/NS 12 MG/50 ML PIGGYBACK 200 MG IV (11:11)
[2020-08-01] MEDS: Atropine Sulfate 1 MG/ML VIAL 0.5 MG SUBCUT (11:26)
[2020-08-01] MEDS: Fosaprepitant Dimeglumine 150 MG in 0.9 % Sodium Chloride 145 ML 300 MG IV (11:27)
[2020-08-01] MEDS: Heparin Sodium,Porcine Flush 500 UNIT/5 ML SYRINGE IVFLUSH (13:56)
--- NOTE | 2020-08-01 16:16 | MHC.HEMONC ---
Pt here for chemo. Labs done yesterday and reviewed. She has been feeling very well last several days. No pain at all and is eating. She was accompanied by her daughter. Will see Dr Villatoro in 2 weeks.
[2020-08-14 08:48] LABS: MANUAL DIFF FLAG NO
[2020-08-14 09:17] LABS: Basophils Percent Auto 0.2 % (0-2); Eosinophils Absolute Auto 0.1 X10*3/uL (0.0-0.4); Eosinophils Percent Auto 1.3 % (0-4); Hematocrit 33.4 % (37-47); Hemoglobin 10.5 g/dl (12.0-16.0); Imm Gran Abs Auto 0.05 X10*3/uL (0.00-0.03); Imm Gran Pct Auto 0.6 % (0.0-0.4); Lymphocytes Absolute Auto 1.2 X10*3/uL (1.2-4.9); Lymphocytes Percent Auto 14.2 % (20-40); Mean Corpuscular HGB Conc 31.4 g/dl (31.0-35.0); Mean Corpuscular Hemoglobin 27.9 pg (27.0-33.0); Mean Corpuscular Volume 88.6 fL (80-98); Mean Platelet Volume 9.3 fL (9.4-12.3); Monocytes Absolute Auto 1.1 X10*3/uL (0.1-1.2); Monocytes Percent Auto 13.2 % (2-11); Neutrophils Absolute Auto 5.8 X10*3/uL (2.0-8.3); Neutrophils Percent Auto 70.5 % (45-73); Platelet Count 314 X10*3/uL (160-400); Red Blood Count 3.77 X10*6/uL (4.20-5.50); Red Cell Distribution Width 16.5 % (11.0-16.0); White Blood Count 8.2 X10*3/uL (4.8-10.8)
[2020-08-14 09:50] LABS: Alanine Aminotransferase 10 U/L (0-31); Albumin Level 3.8 g/dL (3.5-5.0); Alkaline Phosphatase 62 U/L (39-117); Anion Gap 11 (12-20); Aspartate Amino Transferase 14 U/L (5-31); Bilirubin Total 0.6 mg/dL (0.0-1.0); Blood Urea Nitrogen 9 mg/dL (9-16); Calcium 8.6 mg/dL (8.4-10.2); Carbon Dioxide 27 mmol/L (22-29); Chloride 104 mmol/L (96-108); Creatinine Clr Calc Pharmacy 56.4; Estimated Glomerular Filt Rate > 60; Glucose Random 99 mg/dL (60-115); Potassium 4.4 mmol/L (3.3-5.1); Sodium 138 mmol/L (135-145); Total Protein 6.5 g/dL (6.5-8.0)
[2020-08-15 10:50] VITALS: BP 152/71; PULSE 101; RESP 18; TEMP 36.6; O2SAT 98; BMI 23.9
[2020-08-15] MEDS: dexAMETHasone sod phosphate/NS 12 MG/50 ML PIGGYBACK 200 MG IV (10:59)
[2020-08-15] MEDS: ondansetron HCL/NS 16 MG/50 ML PIGGYBACK 200 MG IV (10:59)
[2020-08-15] MEDS: Atropine Sulfate 1 MG/ML VIAL 0.5 MG SUBCUT (11:00)
[2020-08-15] MEDS: Heparin Sodium,Porcine Flush 500 UNIT/5 ML SYRINGE IVFLUSH (11:00)
[2020-08-15] MEDS: Famotidine/PF 20 MG/2 ML VIAL IVPUSH (11:00)
--- NOTE | 2020-08-15 11:27 | PM.HEMONCPN ---
Medical Summary - Medical Summary Date of Service: 08/15/20 Chief complaint: Follow-up and scheduled treatment Medical Summary: Diagnosis: Metastatic Gastric Cancer August 2019 Admitted in August 2019 with complaints of abdominal pain, nausea/emesis and weight loss. Chronic reflux symptoms for many years. Imaging with CT abdomen/pelvis without contrast revealed multiple lung nodules suspicious for metastatic disease, moderate abdominal ascites, mesenteric nodules around the stomach and upper abdomen suspicious for carcinomatosis, omental thickening, diffuse thickening of wall of stomach. Hydronephrosis of right kidney at the level of right adnexa. CEA elevated 23.7, CA 27-29 normal. EGD performed 09/01/2019 revealed multiple areas of gastric ulceration associated with induration and friability with poor gastric distention. 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 Immunohistochemistry for HER2 negative. Staging whole-body PET-CT September 2019 at [facility] revealed mildly increased FDG uptake within the stomach, SUV 3.8. Mild increased activity in epigastric/perigastric lymph node SUV 3, FDG uptake within nodular densities within anterior omentum SUV 2.3 all concerning for metastatic disease. No additional FDG activity in neck, chest, abdomen or pelvis. No FDG uptake in small pulmonary nodules. She started palliative chemotherapy with modified FOLFOX regimen on 09/13/2019. Oxaliplatin M discontinued in January 2020 because of allergic/infusion reaction which was moderately severe. FOLFIRI regimen started on 02/14/2020. FOLFIRI regimen discontinued in March 2020 because of side effects. She was switched to maintenance Xeloda end of March 2020. She stopped taking it from 04/09/2020 because of generalized body aches and not feeling well overall. Abdomen pelvis on 06/05/2020 revealed new moderate to large amount of ascites, infiltration and nodularity of greater omentum worrisome for carcinomatosis. Stable CT chest no evidence of metastatic disease. She resumed Xeloda 1500 mg b.i.d. since 06/13/2020. [facility] Medical History: Medical History (Last Updated 05/25/20 @ 14:37 by Nya Jaramillo RN) Breast cancer, right breast GERD (gastroesophageal reflux disease) Helicobacter pylori antibody positive Hypertension Family History: Family History (Last Updated 05/25/20 @ 14:38 by Nya Jaramillo RN) Mother Ovarian cancer Father Aneurysm Surgical History: Surgical History (Last Updated 05/25/20 @ 14:38 by Nya Jaramillo RN) History of lumpectomy of right breast Social History: Social History (Last Updated 05/25/20 @ 14:40 by Nya Jaramillo RN) Alcohol History: Alcohol intake: never Tobacco History: Smoking Status: Never smoker Advance Directives: Advance Directives: No Advance Directives Information Provided: Yes Smoking status: Never smoker Home Medications and Allergies Current Medications: Current Medications Generic Name Dose Route Start Last Admin Trade Name Freq PRN Reason Stop Dose Admin Atropine Sulfate 0.5 mg 08/15/20 00:00 08/15/20 11:00 Atropine Sulfate 1 Mg/Ml Vial SUBCUT 08/15/20 23:59 0.5 mg ONCE SMITA Administration Famotidine 20 mg 08/15/20 00:00 08/15/20 11:00 Famotidine/Pf 20 Mg/2 Ml Vial IVPUSH 08/15/20 23:59 20 mg ONCE SMITA Administration Heparin Sodium (Porcine) 500 unit 08/15/20 00:00 08/15/20 11:00 Heparin Sodium,Porcine Flush 500 Unit/5 Ml Syringe IVFLUSH 08/15/20 23:59 500 unit ONCE SMITA Administration Fosaprepitant 150 mg/ Sodium 150 mls @ 300 mls/hr 08/15/20 00:00 Chloride IV 08/15/20 23:59 ONCE SMITA Ondansetron HCl 16 mg in 50 mls @ 200 mls/hr 08/15/20 00:00 08/15/20 10:59 Zofran IV 08/15/20 23:59 200 mls/hr ONCE SMITA Administration Dexamethasone Sodium Phosphate 12 mg in 50 mls @ 200 mls/hr 08/15/20 00:00 08/15/20 10:59 Decadron IV 08/15/20 23:59 200 mls/hr ONCE SMITA Administration Irinotecan HCl 220 mg/ 511 mls @ 340.667 mls/hr 08/15/20 00:00 Dextrose IV 08/15/20 23:59 ONCE SMITA Home Medications Medication Instructions Recorded Confirmed Type amlodipine 5 mg PO BID 04/23/20 06/26/20 History magnesium hydroxide [Milk of 5 ml PO BEDTIME PRN 04/23/20 06/26/20 History Magnesia] ondansetron HCl [Zofran] 8 mg PO Q8H PRN 04/23/20 06/26/20 History pantoprazole 40 mg PO BID 04/23/20 06/26/20 History polyethylene glycol 3350 [Miralax] 17 g PO DAILY PRN 04/23/20 06/26/20 History spironolactone 25 mg PO DAILY 06/26/20 06/26/20 History acetaminophen [Tylenol] 650 mg PO Q4H PRN 07/04/20 07/04/20 History Allergies Allergy/AdvReac Type Severity Reaction Status Date / Time Inhaled Anesthetics (Halogen Allergy Severe Anaphylaxis Verified 08/01/20 13:10 Based) oxaliplatin [OXALIPLATIN] Allergy Severe Itching Verified 06/07/20 08:16 Exam Vital signs: Vital Signs Temp 97.8 F 08/15/20 10:50 Pulse 101 H 08/15/20 10:50 Resp 18 08/15/20 10:50 BP 152/71 H 08/15/20 10:50 Pulse Ox 98 08/15/20 10:50 Intake & Output 08/14/20 08/15/20 08/15/20 18:59 06:59 18:59 Other: Weight 53.8 kg [place] Weight in Grams [id number] Weight 53.8 kg Body Mass Index 23.9 - Constitutional Present: no acute distress, chronically ill appearing - Routine HEENT Exam Head: Present: normal inspection - Routine Neck Exam Present: normal inspection - Routine Respiratory Exam Present: CTAB - Routine Cardiovascular Exam Cardiovascular: Present: RRR, S1, S2 Data - Labs CBC & Chem 7: 08/14/20 08:44 08/14/20 08:44 Progress Note: A/P (1) Gastric cancer Status: Chronic Assessment and plan: 1. 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 Immunohistochemistry for HER2 negative. PDL-1 expression-combined positive score of 30. She started palliative chemotherapy with modified FOLFOX regimen on 09/13/2019. Oxaliplatin discontinued in January 2020 because of allergic/infusion reaction which was moderately severe. FOLFIRI regimen started on 02/14/2020. She started single agent Xeloda 1000 milligram/meter squared b.i.d. day 1-14 Q 21 days end of March. This did not help, continued elevation of tumor marker and worsening ascites. She was then switched to single agent irinotecan from July 2020. She is tolerating this very well, her abdominal pain has completely resolved. No ascites on examination. She is doing very well, proceed with treatment today. Follow-up next week. - Time Spent With Patient Total time spent is greater than 50% in coordination of care (as documented) at patient's floor/unit and/or counseling patient: 15 - 24 minutes
[2020-08-15] MEDS: Fosaprepitant Dimeglumine 150 MG in 0.9 % Sodium Chloride 145 ML 300 MG IV (12:13)
--- NOTE | 2020-08-27 11:15 | MHC.HEMONCSW ---
PER [facility] VISITING [facility]UR[facility]....PALLIATIVE CARE...RN AND SW INVOLVED PER PATIENT REQUEST.
[2020-08-28 09:15] LABS: MANUAL DIFF FLAG NO
[2020-08-28 09:53] LABS: Basophils Percent Auto 0.4 % (0-2); Eosinophils Absolute Auto 0.2 X10*3/uL (0.0-0.4); Eosinophils Percent Auto 2.9 % (0-4); Hematocrit 35.3 % (37-47); Hemoglobin 10.7 g/dl (12.0-16.0); Imm Gran Abs Auto 0.03 X10*3/uL (0.00-0.03); Imm Gran Pct Auto 0.4 % (0.0-0.4); Lymphocytes Absolute Auto 1.3 X10*3/uL (1.2-4.9); Lymphocytes Percent Auto 15.7 % (20-40); Mean Corpuscular HGB Conc 30.3 g/dl (31.0-35.0); Mean Corpuscular Hemoglobin 27.2 pg (27.0-33.0); Mean Corpuscular Volume 89.6 fL (80-98); Mean Platelet Volume 9.5 fL (9.4-12.3); Monocytes Absolute Auto 1.1 X10*3/uL (0.1-1.2); Monocytes Percent Auto 13.6 % (2-11); Neutrophils Absolute Auto 5.3 X10*3/uL (2.0-8.3); Platelet Count 350 X10*3/uL (160-400); Red Blood Count 3.94 X10*6/uL (4.20-5.50); Red Cell Distribution Width 16.8 % (11.0-16.0)
[2020-08-28 10:18] LABS: Alanine Aminotransferase 9 U/L (0-31); Albumin Level 3.9 g/dL (3.5-5.0); Alkaline Phosphatase 63 U/L (39-117); Anion Gap 12 (12-20); Aspartate Amino Transferase 13 U/L (5-31); Bilirubin Total 0.6 mg/dL (0.0-1.0); Blood Urea Nitrogen 10 mg/dL (9-16); Calcium 8.8 mg/dL (8.4-10.2); Carbon Dioxide 30 mmol/L (22-29); Chloride 101 mmol/L (96-108); Creatinine Clr Calc Pharmacy 53.6; Estimated Glomerular Filt Rate > 60; Glucose Random 109 mg/dL (60-115); Potassium 4.5 mmol/L (3.3-5.1); Sodium 138 mmol/L (135-145); Total Protein 6.7 g/dL (6.5-8.0)
--- NOTE | 2020-08-28 11:31 | MHC.HEMONCSW ---
MET WITH PATIENT AND PROVIDED HER 2 OF HER CHILDRENS FMLA P-WRK. REPORTS COPING FAIRLY WELL. TRIES TO STAY OPTIMISTIC. DENIED DISTRESS OR CONCERNS AT THIS TIME. SHE IS AWARE OF MY AVAILABILITY.
--- NOTE | 2020-08-28 15:50 | MHC.HEMONC ---
pre-chemo labs WNL.
--- NOTE | 2020-08-28 16:08 | HO.HEMONCPA ---
Called pt's ins for eligibility and coverage. Both IRINOTECAN [employer] ([employer]) and FOSAPREPITANT (Emend) are covered under pt's plan and do not require PA. S/w Kisha Epstein @[facility] Ref#[id number]
[2020-08-29 10:53] VITALS: BP 155/72; PULSE 110; RESP 18; TEMP 36.8; O2SAT 100; BMI 23.6
[2020-08-29] MEDS: Atropine Sulfate 1 MG/ML VIAL 0.5 MG SUBCUT (11:27)
[2020-08-29] MEDS: dexAMETHasone sod phosphate/NS 12 MG/50 ML PIGGYBACK 200 MG IV (11:27)
[2020-08-29] MEDS: Famotidine/PF 20 MG/2 ML VIAL IVPUSH (11:28)
[2020-08-29] MEDS: Heparin Sodium,Porcine Flush 500 UNIT/5 ML SYRINGE IVFLUSH (11:28)
[2020-08-29] MEDS: ondansetron HCL/NS 16 MG/50 ML PIGGYBACK 200 MG IV (11:29)
[2020-08-29] MEDS: Fosaprepitant Dimeglumine 150 MG in 0.9 % Sodium Chloride 145 ML 300 MG IV (12:22)
[2020-09-11 09:23] LABS: MANUAL DIFF FLAG NO
[2020-09-11 09:30] LABS: Basophils Percent Auto 0.2 % (0-2); Eosinophils Absolute Auto 0.1 X10*3/uL (0.0-0.4); Eosinophils Percent Auto 1.4 % (0-4); Hematocrit 32.9 % (37-47); Imm Gran Abs Auto 0.03 X10*3/uL (0.00-0.03); Imm Gran Pct Auto 0.4 % (0.0-0.4); Lymphocytes Absolute Auto 1.1 X10*3/uL (1.2-4.9); Lymphocytes Percent Auto 12.9 % (20-40); Mean Corpuscular HGB Conc 30.4 g/dl (31.0-35.0); Mean Corpuscular Hemoglobin 26.9 pg (27.0-33.0); Mean Corpuscular Volume 88.4 fL (80-98); Mean Platelet Volume 9.3 fL (9.4-12.3); Monocytes Absolute Auto 1.2 X10*3/uL (0.1-1.2); Monocytes Percent Auto 13.9 % (2-11); Neutrophils Percent Auto 71.2 % (45-73); Platelet Count 336 X10*3/uL (160-400); Red Blood Count 3.72 X10*6/uL (4.20-5.50); Red Cell Distribution Width 16.5 % (11.0-16.0); White Blood Count 8.4 X10*3/uL (4.8-10.8)
[2020-09-11 09:56] LABS: Alanine Aminotransferase 9 U/L (0-31); Albumin Level 3.6 g/dL (3.5-5.0); Alkaline Phosphatase 56 U/L (39-117); Anion Gap 14 (12-20); Aspartate Amino Transferase 12 U/L (5-31); Bilirubin Total 0.5 mg/dL (0.0-1.0); Blood Urea Nitrogen 10 mg/dL (9-16); Calcium 8.4 mg/dL (8.4-10.2); Carbon Dioxide 26 mmol/L (22-29); Chloride 103 mmol/L (96-108); Creatinine Clr Calc Pharmacy 52.5; Estimated Glomerular Filt Rate > 60; Glucose Random 113 mg/dL (60-115); Sodium 139 mmol/L (135-145); Total Protein 6.2 g/dL (6.5-8.0)
--- NOTE | 2020-09-11 11:17 | MHC.HEMONC ---
pt attended for labs, ok for chemo tx tomorrow
[2020-09-12 09:43] VITALS: BMI 23.4
[2020-09-12 09:44] VITALS: BP 133/61; PULSE 111; RESP 18; TEMP 36.3; O2SAT 99
[2020-09-12] MEDS: Famotidine/PF 20 MG/2 ML VIAL IVPUSH (10:06)
[2020-09-12] MEDS: ondansetron HCL/NS 16 MG/50 ML PIGGYBACK 200 MG IV (10:06)
[2020-09-12] MEDS: dexAMETHasone sod phosphate/NS 12 MG/50 ML PIGGYBACK 200 MG IV (10:36)
[2020-09-12] MEDS: Fosaprepitant Dimeglumine 150 MG in 0.9 % Sodium Chloride 145 ML 300 MG IV (11:02)
[2020-09-12] MEDS: Atropine Sulfate 1 MG/ML VIAL 0.5 MG SUBCUT (11:25)
[2020-09-12] MEDS: Heparin Sodium,Porcine Flush 500 UNIT/5 ML SYRINGE IVFLUSH (11:44)
--- NOTE | 2020-09-19 09:11 | MHC.HEMONC ---
Call from DILIP Franklin RN to report pt has increased pain and abdominal distention per her dtr, Denisse. He was unable to go there today. I spoke to pt and her dtr on speakerphone and pt stated that her pain is relieved with Tramadol when taken regularly. She is judy po intake and not having bowel issues. Her abdomen is unchanged. I informed Dr Villatoro and asked that pt or her dtr call with any new sx. Due in next week for labs and chemo.
--- NOTE | 2020-09-25 09:51 | MHC.HEMONC ---
Addendum entered by Navya Hawkins RN 09/25/20 10:05: ABD US ORDERED Original Note: pt attended for labs plan for chemo tomorrow. jessica from [facility] called to report pt c/o urine problems and desented abd. ua obtained however pt denies urine problems today. abs apears to be larger, dr scott eXAM
[2020-09-25 09:53] VITALS: BP 146/70; PULSE 108; RESP 18; TEMP 37.1; O2SAT 97; BMI 23.1
--- NOTE | 2020-09-25 10:03 | P.PNHO_ITS ---
Medical Summary - Medical Summary Date of Service: 09/25/20 Chief complaint: Increasing abdominal girth Medical Summary: Diagnosis: Metastatic Gastric Cancer August 2019 Admitted in August 2019 with complaints of abdominal pain, nausea/emesis and weight loss. Chronic reflux symptoms for many years. Imaging with CT abdomen/pelvis without contrast revealed multiple lung nodules suspicious for metastatic disease, moderate abdominal ascites, mesenteric nodules around the stomach and upper abdomen suspicious for carcinomatosis, omental thickening, diffuse thickening of wall of stomach. Hydronephrosis of right kidney at the level of right adnexa. CEA elevated 23.7, CA 27-29 normal. EGD performed 09/01/2019 revealed multiple areas of gastric ulceration associated with induration and friability with poor gastric distention. 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 Immunohistochemistry for HER2 negative. Staging whole-body PET-CT September 2019 at [facility] revealed mildly inc reased FDG uptake within the stomach, SUV 3.8. Mild increased activity in epigastric/perigastric lymph node SUV 3, FDG uptake within nodular densities within anterior omentum SUV 2.3 all concerning for metastatic disease. No additional FDG activity in neck, chest, abdomen or pelvis. No FDG uptake in small pulmonary nodules. She started palliative chemotherapy with modified FOLFOX regimen on 09/13/2019. Oxaliplatin M discontinued in January 2020 because of allergic/infusion reaction which was moderately severe. FOLFIRI regimen started on 02/14/2020. FOLFIRI regimen discontinued in March 2020 because of side effects. She was switched to maintenance Xeloda end of March 2020. She stopped taking it from 04/09/2020 because of generalized body aches and not feeling well overall. Abdomen pelvis on 06/05/2020 revealed new moderate to large amount of ascites, infiltration and nodularity of greater omentum worrisome for carcinomatosis. Stable CT chest no evidence of metastatic disease. She resumed Xeloda 1500 mg b.i.d. since 06/13/2020. This did not help. She was then switched to single agent irinotecan from July 2020. Interval History Interval history: Patient is here in follow-up. She has noticed some increase in abdominal girth but denies pain or tightness. She had a temperature over the weekend, this resolved with Tylenol. She did not have any other symptoms such as sore throat, cough, shortness of breath, diarrhea or dysuria. Review of Systems - Constitutional Reports no additional constitutional complaints - Cardiovascular Reports no additional cardiovascular complaints - Respiratory Reports no additional respiratory complaints - Gastrointestinal Reports no additional gastrointestinal complaints [facility] Medical History: Medical History (Last Updated 05/25/20 @ 14:37 by Nya Jaramillo RN) Breast cancer, right breast GERD (gastroesophageal reflux disease) Helicobacter pylori antibody positive Hypertension Family History: Family History (Last Updated 05/25/20 @ 14:38 by Nya Jaramillo RN) Mother Ovarian cancer Father Aneurysm Surgical History: Surgical History (Last Updated 05/25/20 @ 14:38 by Nya Jaramillo RN) History of lumpectomy of right breast Social History: Social History (Last Updated 05/25/20 @ 14:40 by Nya Jaramillo RN) Alcohol History: Alcohol intake: never Tobacco History: Smoking Status: Never smoker Advance Directives: Advance Directives: No Advance Directives Information Provided: Yes Smoking status: Never smoker Oncology Screenings - ECOG Performance Status ECOG Performance Status: 1 Home Medications and Allergies Home Medications Medication Instructions Recorded Confirmed Type amlodipine 5 mg PO BID 04/23/20 09/12/20 History magnesium hydroxide [Milk of 5 ml PO BEDTIME PRN 04/23/20 09/12/20 History Magnesia] ondansetron HCl [Zofran] 8 mg PO Q8H PRN 04/23/20 09/12/20 History pantoprazole 40 mg PO BID 04/23/20 09/12/20 History polyethylene glycol 3350 [Miralax] 17 g PO DAILY PRN 04/23/20 09/12/20 History spironolactone 25 mg PO DAILY 06/26/20 09/12/20 History acetaminophen [Tylenol] 650 mg PO Q4H PRN 07/04/20 09/12/20 History Allergies Allergy/AdvReac Type Severity Reaction Status Date / Time Inhaled Anesthetics (Halogen Allergy Severe Anaphylaxis Verified 08/01/20 13:10 Based) oxaliplatin [OXALIPLATIN] Allergy Severe Itching Verified 06/07/20 08:16 Exam Vital signs: Vital Signs Temp 98.8 F 09/25/20 09:53 Pulse 108 H 09/25/20 09:53 Resp 18 09/25/20 09:53 BP 146/70 H 09/25/20 09:53 Pulse Ox 97 09/25/20 09:53 Intake & Output 09/24/20 09/25/20 09/25/20 18:59 06:59 18:59 Other: Weight 51.9 kg Weight in Grams 05712 Weight 51.9 kg Body Mass Index 23.1 - Constitutional Present: no acute distress, chronically ill appearing - Routine HEENT Exam Head: Present: normal inspection - Routine Neck Exam Present: normal inspection - Routine Respiratory Exam Present: CTAB - Routine Cardiovascular Exam Cardiovascular: Present: RRR, S1, S2 Data - Labs CBC & Chem 7: 09/25/20 10:23 09/11/20 09:22 Labs: 03/15/20 12:37 Heparin Sodium,Porcine Flush 500 unit 0.9 % Sodium Chloride Flush [NS Flush] 5 m l IVFLUSH ONCE 03/15/20 12:46 Heparin Sodium,Porcine Flush 500 unit IVFLUSH .K-MED ONE 04/09/20 15:04 Carcinoembryonic Antigen Routine Complete Blood Count Auto Diff Routine Comprehensive Met. Panel Routine 04/23/20 10:51 Heparin Sodium,Porcine Flush 500 unit 0.9 % Sodium Chloride Flush [NS Flush] 5 ml IVFLUSH ONCE 04/23/20 11:24 Alteplase Cath Clear [Cathflo Activase] 2 mg INTRACATH ONCE ONE 04/23/20 13:41 Heparin Sodium,Porcine Flush 500 unit IVFLUSH .STK-MED ONE 04/23/20 14:30 Carcinoembryonic Antigen Routine Complete Blood Count Auto Diff Routine Comprehensive Met. Panel Routine 05/25/20 14:12 Heparin Sodium,Porcine Flush 500 unit 0.9 % Sodium Chloride Flush [NS Flush] 5 ml IVFLUSH ONCE 05/25/20 14:21 Heparin Sodium,Porcine Flush 500 unit IVFLUSH .STK-MED ONE 05/25/20 14:45 Carcinoembryonic Antigen Routine Complete Blood Count Auto Diff Routine Comprehensive Met. Panel Routine Laboratory Last Values WBC 8.9 X10*3/uL (4.8-10.8) 05/25/20 14:45 RBC 4.08 X10*6/uL (4.20-5.50) L 05/25/20 14:45 Hgb 11.6 g/dl (12.0-16.0) L 05/25/20 14:45 Hct 36.8 % (37-47) L 05/25/20 14:45 MCV 90.2 fL (80-98) 05/25/20 14:45 MCH 28.4 pg (27.0-33.0) 05/25/20 14:45 MCHC 31.5 g/dl (31.0-35.0) 05/25/20 14:45 RDW 14.6 % (11.0-16.0) 05/25/20 14:45 Plt Count 342 X10*3/uL (160-400) 05/25/20 14:45 MPV 10.0 fL (9.4-12.3) 05/25/20 14:45 Immature Gran % (Auto) 0.2 % (0.0-0.4) 05/25/20 14:45 Neut % (Auto) 68.9 % (45-73) 05/25/20 14:45 Lymph % (Auto) 17.8 % (20-40) L 05/25/20 14:45 [place] % (Auto) 11.2 % (2-11) H 05/25/20 14:45 Eos % (Auto) 1.6 % (0-4) 05/25/20 14:45 Baso % (Auto) 0.3 % (0-2) 05/25/20 14:45 Lymph # (Auto) 1.6 X10*3/uL (1.2-4.9) 05/25/20 14:45 [place] # (Auto) 1.0 X10*3/uL (0.1-1.2) 05/25/20 14:45 Eos # (Auto) 0.1 X10*3/uL (0.0-0.4) 05/25/20 14:45 Baso # (Auto) 0.0 X10*3/uL (0.0-0.2) 05/25/20 14:45 Abs Immat Gran (auto) 0.02 X10*3/uL (0.00-0.03) 05/25/20 14:45 Absolute Neuts (auto) 6.1 X10*3/uL (2.0-8.3) 05/25/20 14:45 Absolute Nucleated RBC 0.000 X10*3/uL (0.0-0.012) 05/25/20 14:45 Nucleated RBC % (auto) 0.0 /100WBC (0.0-0.2) 05/25/20 14:45 Sodium 139 mmol/L (135-145) 05/25/20 14:45 Potassium 4.0 mmol/l (3.3-5.1) 05/25/20 14:45 Chloride 104 mmol/L (96-108) 05/25/20 14:45 Carbon Dioxide 25 mmol/L (22-29) 05/25/20 14:45 Anion Gap 14 (-20) 05/25/20 14:45 BUN 12 mg/dL (9-16) 05/25/20 14:45 Creatinine 0.76 mg/dL (0.5-1.4) 05/25/20 14:45 Estim Creat Clear Calc 53.1 05/25/20 14:45 Estimated GFR > 60 05/25/20 14:45 Random Glucose 100 mg/dL (60-115) 05/25/20 14:45 Calcium 8.7 mg/dL (8.4-10.2) 05/25/20 14:45 Total Bilirubin 0.4 mg/dL (0.0-1.0) 05/25/20 14:45 AST 125 U/L (5-31) H 05/25/20 14:45 ALT 58 U/L (0-31) H 05/25/20 14:45 Alkaline Phosphatase 135 U/L (39-117) H D 05/25/20 14:45 Total Protein 7.1 g/dL (6.5-8.0) 05/25/20 14:45 Albumin 3.9 g/dL (3.5-5.0) 05/25/20 14:45 Carcinoembryonic Ag 22.70 mg/mL D 05/25/20 14:45 Progress Note: A/P (1) Gastric cancer Status: Chronic Assessment and plan: 1. 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 Immunohistochemistry for HER2 negative. PDL-1 expression-combined positive score of 30. She started palliative chemotherapy with modified FOLFOX regimen on 09/13/2019. She is now on single agent irinotecan from July 2020. Her exam today shows recurrent ascites. She is being scheduled for ultrasound- guided paracentesis. If her tumor marker goes up and she has recurrent ascites, her treatment will be switched. She is now on 3rd line treatment. She is a candidate for PD L1 inhibitor/immunotherapy with pembrolizumab based on keynote -181 trial. Follow-up next week. - Time Spent With Patient Total time spent is greater than 50% in coordination of care (as documented) at patient's floor/unit and/or counseling patient: 15 - 24 minutes
[2020-09-25 10:35] LABS: Basophils Percent Auto 0.2 % (0-2); Eosinophils Percent Auto 0.1 % (0-4); Hematocrit 31.2 % (37-47); Hemoglobin 9.6 g/dl (12.0-16.0); Imm Gran Abs Auto 0.04 X10*3/uL (0.00-0.03); Imm Gran Pct Auto 0.4 % (0.0-0.4); Lymphocytes Absolute Auto 0.7 X10*3/uL (1.2-4.9); Lymphocytes Percent Auto 7.3 % (20-40); MANUAL DIFF FLAG SCAN; Mean Corpuscular HGB Conc 30.8 g/dl (31.0-35.0); Mean Corpuscular Hemoglobin 26.2 pg (27.0-33.0); Mean Corpuscular Volume 85.2 fL (80-98); Mean Platelet Volume 9.3 fL (9.4-12.3); Monocytes Absolute Auto 1.1 X10*3/uL (0.1-1.2); Monocytes Percent Auto 12.5 % (2-11); Neutrophils Absolute Auto 7.2 X10*3/uL (2.0-8.3); Neutrophils Percent Auto 79.5 % (45-73); Platelet Count 508 X10*3/uL (160-400); Red Blood Count 3.66 X10*6/uL (4.20-5.50); Red Cell Distribution Width 17.4 % (11.0-16.0); SCAN SMEAR FLAG 1
[2020-09-25 10:50] LABS: Glucose Urine UA NEG (NEG); Leukocyte Esterase Urine TRACE (NEG); Nitrite Urine NEG (NEG); PH 6.5 (5.0-8.0); UACC Culture Trigger YES; Urine Blood TRACE (NEG); Urine Ketones NEG (NEG); Urine Protein 1+ MG/DL (NEG-TRACE)
[2020-09-25 10:54] LABS: Appearance Urine HAZY; Color Urine YELLOW
[2020-09-25 11:10] LABS: Bacteria Urine 1+ /LPF; Mucus Urine TRACE /LPF; RBC Urine 0 /HPF (0); Squamous Epithelial Cell Urine 1+ /LPF; UACC CULT YES; WBC Urine 0-2 /HPF (0-4)
[2020-09-25 11:10] LABS: Alanine Aminotransferase 11 U/L (0-31); Albumin Level 3.4 g/dL (3.5-5.0); Alkaline Phosphatase 84 U/L (39-117); Anion Gap 16 (12-20); Aspartate Amino Transferase 16 U/L (5-31); Bilirubin Total 0.5 mg/dL (0.0-1.0); Blood Urea Nitrogen 9 mg/dL (9-16); Calcium 8.4 mg/dL (8.4-10.2); Carbon Dioxide 25 mmol/L (22-29); Chloride 99 mmol/L (96-108); Creatinine Clr Calc Pharmacy 58.5; Estimated Glomerular Filt Rate > 60; Glucose Random 106 mg/dL (60-115); Potassium 3.9 mmol/L (3.3-5.1); Sodium 136 mmol/L (135-145); Total Protein 6.5 g/dL (6.5-8.0)
[2020-09-25 11:55] LABS: SLIDE REVIEW VERIFIED
--- NOTE | 2020-09-25 13:54 | MHC.HEMONCMA ---
Patient booked for paracentesis tomorrow for 2pm. Patient is aware. Patient has to be NPO 6 hours before.
[2020-09-26 09:32] VITALS: BP 138/66; PULSE 112; RESP 18; TEMP 37; O2SAT 98; BMI 23.0
[2020-09-26] MEDS: Famotidine/PF 20 MG/2 ML VIAL IVPUSH (10:06)
[2020-09-26] MEDS: ondansetron HCL/NS 16 MG/50 ML PIGGYBACK 200 MG IV (10:09)
[2020-09-26] MEDS: dexAMETHasone sod phosphate/NS 12 MG/50 ML PIGGYBACK 200 MG IV (10:40)
[2020-09-26] MEDS: Fosaprepitant Dimeglumine 150 MG in 0.9 % Sodium Chloride 145 ML 300 MG IV (11:04)
[2020-09-26] MEDS: Atropine Sulfate 1 MG/ML VIAL 0.5 MG SUBCUT (13:09)
[2020-09-26] MEDS: Heparin Sodium,Porcine Flush 500 UNIT/5 ML SYRINGE IVFLUSH (13:20)
--- NOTE | 2020-09-26 13:58 | MHC.HEMONC ---
Pt here for Cycle 7 day 1 of Irinotecan IV. Port accessed without difficulty, flushed with NS, blood return noted. Labs drawn 09/25/20-reviewed. Pre medicated with zofran 16mg IV, pepcid 20mg IV, decadron 12mg IV, Emend IV, atropine 0.5mg SC. Irinotecan IV given as ordered. Discharge teaching and chemo discharge instructions given. Follow up appointment scheduled. Port flushed with heparin and de accessed. Discharged home.
--- NOTE | 2020-10-03 10:00 | MHC.HEMONCSW ---
LEXIE CONCEPCION AT [facility], PATIENT IS NOW ON THEIR HOSPICE SERVICE.
[2020-10-09 10:35] LABS: MANUAL DIFF FLAG NO
[2020-10-09 10:51] LABS: Basophils Percent Auto 0.3 % (0-2); Eosinophils Absolute Auto 0.1 X10*3/uL (0.0-0.4); Eosinophils Percent Auto 0.9 % (0-4); Hematocrit 30.6 % (37-47); Hemoglobin 9.2 g/dl (12.0-16.0); Imm Gran Abs Auto 0.05 X10*3/uL (0.00-0.03); Imm Gran Pct Auto 0.7 % (0.0-0.4); Lymphocytes Absolute Auto 1.1 X10*3/uL (1.2-4.9); Lymphocytes Percent Auto 15.2 % (20-40); Mean Corpuscular HGB Conc 30.1 g/dl (31.0-35.0); Mean Corpuscular Hemoglobin 25.4 pg (27.0-33.0); Mean Corpuscular Volume 84.5 fL (80-98); Monocytes Absolute Auto 1.1 X10*3/uL (0.1-1.2); Monocytes Percent Auto 14.9 % (2-11); Platelet Count 488 X10*3/uL (160-400); Red Blood Count 3.62 X10*6/uL (4.20-5.50); Red Cell Distribution Width 17.3 % (11.0-16.0); White Blood Count 7.4 X10*3/uL (4.8-10.8)
[2020-10-09 11:25] LABS: Alanine Aminotransferase 11 U/L (0-31); Albumin Level 3.4 g/dL (3.5-5.0); Alkaline Phosphatase 75 U/L (39-117); Anion Gap 15 (12-20); Aspartate Amino Transferase 15 U/L (5-31); Bilirubin Total 0.3 mg/dL (0.0-1.0); Blood Urea Nitrogen 8 mg/dL (9-16); Calcium 8.8 mg/dL (8.4-10.2); Carbon Dioxide 27 mmol/L (22-29); Chloride 101 mmol/L (96-108); Creatinine Clr Calc Pharmacy 53.3; Estimated Glomerular Filt Rate > 60; Glucose Random 87 mg/dL (60-115); Potassium 4.5 mmol/L (3.3-5.1); Sodium 138 mmol/L (135-145); Total Protein 6.3 g/dL (6.5-8.0)
--- NOTE | 2020-10-09 14:51 | MHC.HEMONC ---
pre-chemo labs reviewed and WNL for tomorrow appt.
[2020-10-10 09:10] VITALS: BP 127/66; PULSE 105; RESP 18; TEMP 36.3; O2SAT 99; BMI 22.1
[2020-10-10] MEDS: ondansetron HCL/NS 16 MG/50 ML PIGGYBACK 200 MG IV (09:30)
[2020-10-10] MEDS: dexAMETHasone sod phosphate/NS 12 MG/50 ML PIGGYBACK 200 MG IV (09:31)
[2020-10-10] MEDS: Atropine Sulfate 1 MG/ML VIAL 0.5 MG SUBCUT (09:31)
[2020-10-10] MEDS: Heparin Sodium,Porcine Flush 500 UNIT/5 ML SYRINGE IVFLUSH (09:31)
[2020-10-10] MEDS: Famotidine/PF 20 MG/2 ML VIAL IVPUSH (09:31)
[2020-10-10] MEDS: Fosaprepitant Dimeglumine 150 MG in 0.9 % Sodium Chloride 145 ML 300 MG IV (10:16)
[2020-10-23 09:10] LABS: Hematocrit 32.5 % (37-47); Hemoglobin 9.6 g/dl (12.0-16.0); Mean Corpuscular HGB Conc 29.5 g/dl (31.0-35.0); Mean Corpuscular Hemoglobin 24.9 pg (27.0-33.0); Mean Corpuscular Volume 84.2 fL (80-98); Mean Platelet Volume 9.2 fL (9.4-12.3); Platelet Count 359 X10*3/uL (160-400); Red Blood Count 3.86 X10*6/uL (4.20-5.50); Red Cell Distribution Width 18.5 % (11.0-16.0); White Blood Count 7.8 X10*3/uL (4.8-10.8)
[2020-10-23 09:33] LABS: Alanine Aminotransferase 11 U/L (0-31); Albumin Level 3.6 g/dL (3.5-5.0); Alkaline Phosphatase 70 U/L (39-117); Anion Gap 12 (12-20); Aspartate Amino Transferase 13 U/L (5-31); Bilirubin Total 0.2 mg/dL (0.0-1.0); Blood Urea Nitrogen 8 mg/dL (9-16); Calcium 8.9 mg/dL (8.4-10.2); Carbon Dioxide 27 mmol/L (22-29); Chloride 103 mmol/L (96-108); Creatinine Clr Calc Pharmacy 51.7; Estimated Glomerular Filt Rate > 60; Glucose Random 109 mg/dL (60-115); Potassium 4.9 mmol/L (3.3-5.1); Sodium 137 mmol/L (135-145); Total Protein 6.8 g/dL (6.5-8.0)
[2020-10-24 09:45] VITALS: BP 158/72; PULSE 80; RESP 18; TEMP 36.6; O2SAT 99
[2020-10-24 09:46] VITALS: BMI 22.3
[2020-10-24] MEDS: Heparin Sodium,Porcine Flush 500 UNIT/5 ML SYRINGE IVFLUSH (10:12)
[2020-10-24] MEDS: Famotidine/PF 20 MG/2 ML VIAL IVPUSH (10:12)
[2020-10-24] MEDS: ondansetron HCL/NS 16 MG/50 ML PIGGYBACK 200 MG IV (10:12)
[2020-10-24] MEDS: dexAMETHasone sod phosphate/NS 12 MG/50 ML PIGGYBACK 200 MG IV (10:36)
[2020-10-24] MEDS: Fosaprepitant Dimeglumine 150 MG in 0.9 % Sodium Chloride 145 ML 300 MG IV (11:01)
--- NOTE | 2020-10-24 11:06 | PM.HEMONCPN ---
Medical Summary - Medical Summary Date of Service: 10/24/20 Chief complaint: Follow-up and scheduled treatment Medical Summary: Diagnosis: Metastatic Gastric Cancer August 2019 Admitted in August 2019 with complaints of abdominal pain, nausea/emesis and weight loss. Chronic reflux symptoms for many years. Imaging with CT abdomen/pelvis without contrast revealed multiple lung nodules suspicious for metastatic disease, moderate abdominal ascites, mesenteric nodules around the stomach and upper abdomen suspicious for carcinomatosis, omental thickening, diffuse thickening of wall of stomach. Hydronephrosis of right kidney at the level of right adnexa. CEA elevated 23.7, CA 27-29 normal. EGD performed 09/01/2019 revealed multiple areas of gastric ulceration associated with induration and friability with poor gastric distention. 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 Immunohistochemistry for HER2 negative. Staging whole-body PET-CT September 2019 at [facility] revealed mildly increased FDG uptake within the stomach, SUV 3.8. Mild increased activity in epigastric/perigastric lymph node SUV 3, FDG uptake within nodular densities within anterior omentum SUV 2.3 all concerning for metastatic disease. No additional FDG activity in neck, chest, abdomen or pelvis. No FDG uptake in small pulmonary nodules. She started palliative chemotherapy with modified FOLFOX regimen on 09/13/2019. Oxaliplatin M discontinued in January 2020 because of allergic/infusion reaction which was moderately severe. FOLFIRI regimen started on 02/14/2020. FOLFIRI regimen discontinued in March 2020 because of side effects. She was switched to maintenance Xeloda end of March 2020. She stopped taking it from 04/09/2020 because of generalized body aches and not feeling well overall. Abdomen pelvis on 06/05/2020 revealed new moderate to large amount of ascites, infiltration and nodularity of greater omentum worrisome for carcinomatosis. Stable CT chest no evidence of metastatic disease. She resumed Xeloda 1500 mg b.i.d. since 06/13/2020. This did not help. She was then switched to single agent irinotecan from July 2020. Interval History Interval history: Patient is here for follow-up as well as scheduled treatment. Overall she is doing well, sometime she notices distention of her stomach in the night. It seems to get rather hard but resolves later in the day. She denies nausea or emesis. No diarrhea or constipation. No fever or chills. Review of Systems - Constitutional Reports as per HPI, Reports no additional constitutional complaints - Cardiovascular Reports no additional cardiovascular complaints - Respiratory Reports no additional respiratory complaints - Gastrointestinal Reports no additional gastrointestinal complaints [facility] Medical History: Medical History (Last Updated 05/25/20 @ 14:37 by Nya Jaramillo RN) Breast cancer, right breast GERD (gastroesophageal reflux disease) Helicobacter pylori antibody positive Hypertension Family History: Family History (Last Updated 05/25/20 @ 14:38 by Nya Jaramillo RN) Mother Ovarian cancer Father Aneurysm Surgical History: Surgical History (Last Updated 05/25/20 @ 14:38 by Nya Jaramillo RN) History of lumpectomy of right breast Social History: Social History (Last Updated 05/25/20 @ 14:40 by Nya Jaramillo RN) Alcohol History: Alcohol intake: never Tobacco History: Smoking Status: Never smoker Advance Directives: Advance Directives: No Advance Directives Information Provided: Yes Smoking status: Never smoker Oncology Screenings - ECOG Performance Status ECOG Performance Status: 1 Home Medications and Allergies Current Medications: Current Medications Generic Name Dose Route Start Last Admin Trade Name Freq PRN Reason Stop Dose Admin Atropine Sulfate 0.5 mg 10/24/20 00:00 Atropine Sulfate 1 Mg/Ml Vial SUBCUT 10/24/20 23:59 ONCE SMITA Famotidine 20 mg 10/24/20 00:00 10/24/20 10:12 Famotidine/Pf 20 Mg/2 Ml Vial IVPUSH 10/24/20 23:59 20 mg ONCE SMITA Administration Heparin Sodium (Porcine) 500 unit 10/24/20 00:00 10/24/20 10:12 Heparin Sodium,Porcine Flush 500 Unit/5 Ml Syringe IVFLUSH 10/24/20 23:59 500 unit ONCE SMITA Administration Fosaprepitant 150 mg/ Sodium 150 mls @ 300 mls/hr 10/24/20 00:00 10/24/20 11:01 Chloride IV 10/24/20 23:59 300 mls/hr ONCE SMITA Administration Ondansetron HCl 16 mg in 50 mls @ 200 mls/hr 10/24/20 00:00 10/24/20 10:27 Zofran IV 10/24/20 23:59 Infused ONCE SMITA Infusion Dexamethasone Sodium Phosphate 12 mg in 50 mls @ 200 mls/hr 10/24/20 00:00 10/24/20 10:51 Decadron IV 10/24/20 23:59 Infused ONCE SMITA Infusion Irinotecan HCl 200 mg/ 510.5 mls @ 340.333 mls/hr 10/24/20 00:00 Irinotecan HCl 10 mg/ Dextrose IV 10/24/20 23:59 ONCE SMITA Home Medications Medication Instructions Recorded Confirmed Type amlodipine 5 mg PO BID 04/23/20 09/12/20 History magnesium hydroxide [Milk of 5 ml PO BEDTIME PRN 04/23/20 09/12/20 History Magnesia] pantoprazole 40 mg PO BID 04/23/20 09/12/20 History polyethylene glycol 3350 [Miralax] 17 g PO DAILY PRN 04/23/20 09/12/20 History spironolactone 25 mg PO DAILY 06/26/20 09/12/20 History acetaminophen [Tylenol] 650 mg PO Q4H PRN 07/04/20 09/12/20 History Allergies Allergy/AdvReac Type Severity Reaction Status Date / Time Inhaled Anesthetics (Halogen Allergy Severe Anaphylaxis Verified 09/27/20 11:44 Based) oxaliplatin [OXALIPLATIN] Allergy Severe Itching Verified 09/27/20 11:44 Exam Vital signs: Vital Signs Temp 97.8 F 10/24/20 09:45 Pulse 80 10/24/20 09:45 Resp 18 10/24/20 09:45 BP 158/72 H 10/24/20 09:45 Pulse Ox 99 10/24/20 09:45 Intake & Output 10/23/20 10/24/20 10/24/20 18:59 06:59 18:59 Intake Total 100 / 100 Balance 100 / 100 Intake: Intake, IV Amount 100 / 100 dexAMETHasone sod phosphate/NS 50 / 50 12 mg In 50 ml @ 200 mls/hr IV ONCE SMITA Rx#:[id number] ondansetron HCL/NS 16 mg In 50 50 / 50 ml @ 200 mls/hr IV ONCE SMITA Rx# :[id number] Other: Weight 50.1 kg [place] Weight in Grams 09011 Weight 50.1 kg Body Mass Index 22.3 - Constitutional Present: no acute distress, chronically ill appearing - Routine HEENT Exam Head: Present: normal inspection - Routine Neck Exam Present: normal inspection - Routine Respiratory Exam Present: CTAB - Routine Cardiovascular Exam Cardiovascular: Present: RRR, S1, S2 Data - Labs CBC & Chem 7: 10/23/20 08:53 10/23/20 08:53 Labs: 03/15/20 12:37 Heparin Sodium,Porcine Flush 500 unit 0.9 % Sodium Chloride Flush [NS Flush] 5 ml IVFLUSH ONCE 03/15/20 12:46 Heparin Sodium,Porcine Flush 500 unit IVFLUSH .STK-MED ONE 04/09/20 15:04 Carcinoembryonic Antigen Routine Complete Blood Count Auto Diff Routine Comprehensive Met. Panel Routine 04/23/20 10:51 Heparin Sodium,Porcine Flush 500 unit 0.9 % Sodium Chloride Flush [NS Flush] 5 ml IVFLUSH ONCE 04/23/20 11:24 Alteplase Cath Clear [Cathflo Activase] 2 mg INTRACATH ONCE ONE 04/23/20 13:41 Heparin Sodium,Porcine Flush 500 unit IVFLUSH .STK-MED ONE 04/23/20 14:30 Carcinoembryonic Antigen Routine Complete Blood Count Auto Diff Routine Comprehensive Met. Panel Routine 05/25/20 14:12 Heparin Sodium,Porcine Flush 500 unit 0.9 % Sodium Chloride Flush [NS Flush] 5 ml IVFLUSH ONCE 05/25/20 14:21 Heparin Sodium,Porcine Flush 500 unit IVFLUSH .STK-MED ONE 05/25/20 14:45 Carcinoembryonic Antigen Routine Complete Blood Count Auto Diff Routine Comprehensive Met. Panel Routine Laboratory Last Values WBC 8.9 X10*3/uL (4.8-10.8) 05/25/20 14:45 RBC 4.08 X10*6/uL (4.20-5.50) L 05/25/20 14:45 Hgb 11.6 g/dl (12.0-16.0) L 05/25/20 14:45 Hct 36.8 % (37-47) L 05/25/20 14:45 MCV 90.2 fL (80-98) 05/25/20 14:45 MCH 28.4 pg (27.0-33.0) 05/25/20 14:45 MCHC 31.5 g/dl (31.0-35.0) 05/25/20 14:45 RDW 14.6 % (11.0-16.0) 05/25/20 14:45 Plt Count 342 X10*3/uL (160-400) 05/25/20 14:45 MPV 10.0 fL (9.4-12.3) 05/25/20 14:45 Immature Gran % (Auto) 0.2 % (0.0-0.4) 05/25/20 14:45 Neut % (Auto) 68.9 % (45-73) 05/25/20 14:45 Lymph % (Auto) 17.8 % (20-40) L 05/25/20 14:45 [place] % (Auto) 11.2 % (2-11) H 05/25/20 14:45 Eos % (Auto) 1.6 % (0-4) 05/25/20 14:45 Baso % (Auto) 0.3 % (0-2) 05/25/20 14:45 Lymph # (Auto) 1.6 X10*3/uL (1.2-4.9) 05/25/20 14:45 [place] # (Auto) 1.0 X10*3/uL (0.1-1.2) 05/25/20 14:45 Eos # (Auto) 0.1 X10*3/uL (0.0-0.4) 05/25/20 14:45 Baso # (Auto) 0.0 X10*3/uL (0.0-0.2) 05/25/20 14:45 Abs Immat Gran (auto) 0.02 X10*3/uL (0.00-0.03) 05/25/20 14:45 Absolute Neuts (auto) 6.1 X10*3/uL (2.0-8.3) 05/25/20 14:45 Absolute Nucleated RBC 0.000 X10*3/uL (0.0-0.012) 05/25/20 14:45 Nucleated RBC % (auto) 0.0 /100WBC (0.0-0.2) 05/25/20 14:45 Sodium 139 mmol/L (135-145) 05/25/20 14:45 Potassium 4.0 mmol/l (3.3-5.1) 05/25/20 14:45 Chloride 104 mmol/L (96-108) 05/25/20 14:45 Carbon Dioxide 25 mmol/L (22-29) 05/25/20 14:45 Anion Gap 14 (12-20) 05/25/20 14:45 BUN 12 mg/dL (9-16) 05/25/20 14:45 Creatinine 0.76 mg/dL (0.5-1.4) 05/25/20 14:45 Estim Creat Clear Calc 53.1 05/25/20 14:45 Estimated GFR > 60 05/25/20 14:45 Random Glucose 100 mg/dL (60-115) 05/25/20 14:45 Calcium 8.7 mg/dL (8.4-10.2) 05/25/20 14:45 Total Bilirubin 0.4 mg/dL (0.0-1.0) 05/25/20 14:45 AST 125 U/L (5-31) H 05/25/20 14:45 ALT 58 U/L (0-31) H 05/25/20 14:45 Alkaline Phosphatase 135 U/L (39-117) H D 05/25/20 14:45 Total Protein 7.1 g/dL (6.5-8.0) 05/25/20 14:45 Albumin 3.9 g/dL (3.5-5.0) 05/25/20 14:45 Carcinoembryonic Ag 22.70 mg/mL D 05/25/20 14:45 Progress Note: A/P (1) Gastric cancer Status: Chronic Assessment and plan: 1. 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 Immunohistochemistry for HER2 negative. PDL-1 expression-combined positive score of 30. She started palliative chemotherapy with modified FOLFOX regimen on 09/13/2019. She is now on single agent irinotecan from July 2020. She is doing well, her last tumor marker was 6.4. Follow-up in 3 weeks. - Time Spent With Patient Total time spent is greater than 50% in coordination of care (as documented) at patient's floor/unit and/or counseling patient: 15 - 24 minutes
[2020-10-24 11:23] LABS: MANUAL DIFF FLAG NO
[2020-10-24 11:28] LABS: Basophils Percent Auto 0.1 % (0-2); Eosinophils Absolute Auto 0.2 X10*3/uL (0.0-0.4); Eosinophils Percent Auto 2.9 % (0-4); Hematocrit 28.2 % (37-47); Hemoglobin 8.4 g/dl (12.0-16.0); Imm Gran Abs Auto 0.05 X10*3/uL (0.00-0.03); Imm Gran Pct Auto 0.7 % (0.0-0.4); Lymphocytes Absolute Auto 1.4 X10*3/uL (1.2-4.9); Lymphocytes Percent Auto 18.7 % (20-40); Mean Corpuscular HGB Conc 29.8 g/dl (31.0-35.0); Mean Corpuscular Hemoglobin 25.1 pg (27.0-33.0); Mean Corpuscular Volume 84.2 fL (80-98); Mean Platelet Volume 9.3 fL (9.4-12.3); Monocytes Absolute Auto 0.9 X10*3/uL (0.1-1.2); Monocytes Percent Auto 12.8 % (2-11); Neutrophils Absolute Auto 4.8 X10*3/uL (2.0-8.3); Neutrophils Percent Auto 64.8 % (45-73); Platelet Count 338 X10*3/uL (160-400); Red Blood Count 3.35 X10*6/uL (4.20-5.50); Red Cell Distribution Width 18.5 % (11.0-16.0); White Blood Count 7.3 X10*3/uL (4.8-10.8)
[2020-10-24] MEDS: Atropine Sulfate 1 MG/ML VIAL 0.5 MG SUBCUT (11:55)
--- NOTE | 2020-10-24 13:58 | MHC.HEMONC ---
Exam with Dr. Villatoro. CYCLE 9: Irinotecan. Labs completed on 10/24/20 however ANC was not completed. Repeat cbc with diff obtained. Labs wnl. Port accessed, positive blood return. VSS. No complaints at this time. Patient to return in 2 weeks for labs and chemotherapy. Port deaccessed.
[2020-11-06 11:23] LABS: MANUAL DIFF FLAG NO
[2020-11-06 11:27] LABS: Basophils Percent Auto 0.1 % (0-2); Eosinophils Absolute Auto 0.2 X10*3/uL (0.0-0.4); Eosinophils Percent Auto 1.9 % (0-4); Hematocrit 31.2 % (37-47); Hemoglobin 9.4 g/dl (12.0-16.0); Imm Gran Abs Auto 0.06 X10*3/uL (0.00-0.03); Imm Gran Pct Auto 0.7 % (0.0-0.4); Lymphocytes Absolute Auto 1.1 X10*3/uL (1.2-4.9); Lymphocytes Percent Auto 13.2 % (20-40); Mean Corpuscular HGB Conc 30.1 g/dl (31.0-35.0); Mean Corpuscular Hemoglobin 25.4 pg (27.0-33.0); Mean Corpuscular Volume 84.3 fL (80-98); Monocytes Absolute Auto 1.1 X10*3/uL (0.1-1.2); Monocytes Percent Auto 13.2 % (2-11); Neutrophils Absolute Auto 5.9 X10*3/uL (2.0-8.3); Neutrophils Percent Auto 70.9 % (45-73); Platelet Count 332 X10*3/uL (160-400); Red Cell Distribution Width 19.1 % (11.0-16.0); White Blood Count 8.4 X10*3/uL (4.8-10.8)
--- NOTE | 2020-11-06 11:28 | MHC.HEMONC ---
Pt here for labs. Labs drawn. Pt has follow-up.
[2020-11-06 12:00] LABS: Alanine Aminotransferase 11 U/L (0-31); Albumin Level 3.7 g/dL (3.5-5.0); Alkaline Phosphatase 70 U/L (39-117); Anion Gap 13 (12-20); Aspartate Amino Transferase 15 U/L (5-31); Bilirubin Total 0.4 mg/dL (0.0-1.0); Blood Urea Nitrogen 14 mg/dL (9-16); Carbon Dioxide 26 mmol/L (22-29); Chloride 104 mmol/L (96-108); Estimated Glomerular Filt Rate > 60; Glucose Random 95 mg/dL (60-115); Potassium 4.1 mmol/L (3.3-5.1); Sodium 139 mmol/L (135-145); Total Protein 6.7 g/dL (6.5-8.0)
[2020-11-08 09:53] VITALS: BP 140/72; PULSE 105; RESP 18; TEMP 36.5; O2SAT 99; BMI 22.8
[2020-11-08] MEDS: Heparin Sodium,Porcine Flush 500 UNIT/5 ML SYRINGE IVFLUSH (10:00)
[2020-11-08] MEDS: Famotidine/PF 20 MG/2 ML VIAL IVPUSH (10:00)
[2020-11-08] MEDS: Atropine Sulfate 1 MG/ML VIAL 0.5 MG SUBCUT (10:01)
[2020-11-08] MEDS: dexAMETHasone sod phosphate/NS 12 MG/50 ML PIGGYBACK 200 MG IV (10:21)
[2020-11-08] MEDS: ondansetron HCL/NS 16 MG/50 ML PIGGYBACK 200 MG IV (10:21)
[2020-11-08] MEDS: Fosaprepitant Dimeglumine 150 MG in 0.9 % Sodium Chloride 145 ML 300 MG IV (10:22)
[2020-11-20 09:00] LABS: MANUAL DIFF FLAG NO
[2020-11-20 09:09] LABS: Basophils Percent Auto 0.1 % (0-2); Eosinophils Absolute Auto 0.2 X10*3/uL (0.0-0.4); Eosinophils Percent Auto 1.8 % (0-4); Hemoglobin 9.3 g/dl (12.0-16.0); Imm Gran Abs Auto 0.04 X10*3/uL (0.00-0.03); Imm Gran Pct Auto 0.5 % (0.0-0.4); Lymphocytes Absolute Auto 1.3 X10*3/uL (1.2-4.9); Lymphocytes Percent Auto 15.6 % (20-40); Mean Corpuscular Hemoglobin 25.2 pg (27.0-33.0); Mean Platelet Volume 9.5 fL (9.4-12.3); Monocytes Absolute Auto 1.1 X10*3/uL (0.1-1.2); Monocytes Percent Auto 13.4 % (2-11); Neutrophils Absolute Auto 5.9 X10*3/uL (2.0-8.3); Neutrophils Percent Auto 68.6 % (45-73); Platelet Count 292 X10*3/uL (160-400); Red Blood Count 3.69 X10*6/uL (4.20-5.50); Red Cell Distribution Width 19.7 % (11.0-16.0); White Blood Count 8.5 X10*3/uL (4.8-10.8)
[2020-11-20 09:28] LABS: Alanine Aminotransferase 9 U/L (0-31); Albumin Level 3.6 g/dL (3.5-5.0); Alkaline Phosphatase 74 U/L (39-117); Anion Gap 12 (12-20); Aspartate Amino Transferase 15 U/L (5-31); Bilirubin Total 0.5 mg/dL (0.0-1.0); Blood Urea Nitrogen 8 mg/dL (9-16); Calcium 8.8 mg/dL (8.4-10.2); Carbon Dioxide 28 mmol/L (22-29); Chloride 105 mmol/L (96-108); Creatinine Clr Calc Pharmacy 47.5; Estimated Glomerular Filt Rate > 60; Glucose Random 101 mg/dL (60-115); Potassium 4.1 mmol/L (3.3-5.1); Sodium 141 mmol/L (135-145); Total Protein 6.3 g/dL (6.5-8.0)
[2020-11-21 09:03] VITALS: BP 193/79; PULSE 105; RESP 18; TEMP 36.6; O2SAT 99; BMI 22.4
[2020-11-21] MEDS: Atropine Sulfate 1 MG/ML VIAL 0.5 MG SUBCUT (09:40)
[2020-11-21] MEDS: Heparin Sodium,Porcine Flush 500 UNIT/5 ML SYRINGE IVFLUSH (09:40)
[2020-11-21] MEDS: dexAMETHasone sod phosphate/NS 12 MG/50 ML PIGGYBACK 200 MG IV (09:40)
[2020-11-21] MEDS: ondansetron HCL/NS 16 MG/50 ML PIGGYBACK 200 MG IV (09:40)
[2020-11-21 09:49] VITALS: BP 136/64
[2020-11-21] MEDS: Fosaprepitant Dimeglumine 150 MG in 0.9 % Sodium Chloride 145 ML 300 MG IV (10:17)
[2020-12-04 09:34] LABS: MANUAL DIFF FLAG NO
[2020-12-04 09:46] LABS: Basophils Percent Auto 0.3 % (0-2); Eosinophils Absolute Auto 0.3 X10*3/uL (0.0-0.4); Eosinophils Percent Auto 3.8 % (0-4); Hematocrit 31.2 % (37-47); Hemoglobin 9.5 g/dl (12.0-16.0); Imm Gran Abs Auto 0.05 X10*3/uL (0.00-0.03); Imm Gran Pct Auto 0.7 % (0.0-0.4); Mean Corpuscular HGB Conc 30.4 g/dl (31.0-35.0); Mean Corpuscular Hemoglobin 25.2 pg (27.0-33.0); Mean Corpuscular Volume 82.8 fL (80-98); Mean Platelet Volume 9.3 fL (9.4-12.3); Monocytes Absolute Auto 1.2 X10*3/uL (0.1-1.2); Monocytes Percent Auto 15.8 % (2-11); Neutrophils Absolute Auto 4.8 X10*3/uL (2.0-8.3); Neutrophils Percent Auto 65.4 % (45-73); Platelet Count 301 X10*3/uL (160-400); Red Blood Count 3.77 X10*6/uL (4.20-5.50); Red Cell Distribution Width 19.1 % (11.0-16.0); White Blood Count 7.4 X10*3/uL (4.8-10.8)
[2020-12-04 10:06] LABS: Alanine Aminotransferase 12 U/L (0-31); Albumin Level 3.6 g/dL (3.5-5.0); Alkaline Phosphatase 68 U/L (39-117); Anion Gap 12 (12-20); Aspartate Amino Transferase 17 U/L (5-31); Bilirubin Total 0.4 mg/dL (0.0-1.0); Blood Urea Nitrogen 11 mg/dL (9-16); Calcium 8.5 mg/dL (8.4-10.2); Carbon Dioxide 27 mmol/L (22-29); Chloride 105 mmol/L (96-108); Creatinine Clr Calc Pharmacy 44.5; Estimated Glomerular Filt Rate > 60; Glucose Random 98 mg/dL (60-115); Potassium 3.7 mmol/L (3.3-5.1); Sodium 140 mmol/L (135-145); Total Protein 6.2 g/dL (6.5-8.0)
[2020-12-05] MEDS: dexAMETHasone sod phosphate/NS 12 MG/50 ML PIGGYBACK 200 MG IV (09:08)
[2020-12-05] MEDS: Famotidine/PF 20 MG/2 ML VIAL IVPUSH (09:09)
[2020-12-05] MEDS: ondansetron HCL/NS 16 MG/50 ML PIGGYBACK 200 MG IV (09:45)
[2020-12-05] MEDS: Heparin Sodium,Porcine Flush 500 UNIT/5 ML SYRINGE IVFLUSH (09:45)
[2020-12-05] MEDS: Fosaprepitant Dimeglumine 150 MG in 0.9 % Sodium Chloride 145 ML 300 MG IV (10:12)
--- NOTE | 2020-12-05 11:42 | PM.HEMONCPN ---
Medical Summary - Medical Summary Date of Service: 12/05/20 Chief complaint: Follow-up and scheduled treatment. Medical Summary: Diagnosis: Metastatic Gastric Cancer August 2019 Admitted in August 2019 with complaints of abdominal pain, nausea/emesis and weight loss. Chronic reflux symptoms for many years. Imaging with CT abdomen/pelvis without contrast revealed multiple lung nodules suspicious for metastatic disease, moderate abdominal ascites, mesenteric nodules around the stomach and upper abdomen suspicious for carcinomatosis, omental thickening, diffuse thickening of wall of stomach. Hydronephrosis of right kidney at the level of right adnexa. CEA elevated 23.7, CA 27-29 normal. EGD performed 09/01/2019 revealed multiple areas of gastric ulceration associated with induration and friability with poor gastric distention. 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 Immunohistochemistry for HER2 negative. Staging whole-body PET-CT September 2019 at [facility] revealed mildly increased FDG uptake within the stomach, SUV 3.8. Mild increased activity in epigastric/perigastric lymph node SUV 3, FDG uptake within nodular densities within anterior omentum SUV 2.3 all concerning for metastatic disease. No additional FDG activity in neck, chest, abdomen or pelvis. No FDG uptake in small pulmonary nodules. She started palliative chemotherapy with modified FOLFOX regimen on 09/13/2019. Oxaliplatin M discontinued in January 2020 because of allergic/infusion reaction which was moderately severe. FOLFIRI regimen started on 02/14/2020. FOLFIRI regimen discontinued in March 2020 because of side effects. She was switched to maintenance Xeloda end of March 2020. She stopped taking it from 04/09/2020 because of generalized body aches and not feeling well overall. Abdomen pelvis on 06/05/2020 revealed new moderate to large amount of ascites, infiltration and nodularity of greater omentum worrisome for carcinomatosis. Stable CT chest no evidence of metastatic disease. She resumed Xeloda 1500 mg b.i.d. since 06/13/2020. This did not help. She was then switched to single agent irinotecan from July 2020. Interval History Interval history: Patient is here in follow-up. She is accompanied by her daughter today. She has noticed some swelling in her legs again. She has no significant side effects of being on chemotherapy but she is not sure if she wants to continue. She however wants treatment for her cancer. She denies abdominal discomfort or increasing distention of her abdomen. No change in bowel habits. She is able to urinate normally. No fever or chills. No nausea or emesis. Review of Systems - Constitutional Reports as per HPI, Reports no additional constitutional complaints, Reports malaise, Denies weight loss - Cardiovascular Reports no additional cardiovascular complaints - Respiratory Reports no additional respiratory complaints [facility] Medical History: Medical History (Last Updated 05/25/20 @ 14:37 by Nya Jaramillo RN) Breast cancer, right breast GERD (gastroesophageal reflux disease) Helicobacter pylori antibody positive Hypertension Family History: Family History (Last Updated 05/25/20 @ 14:38 by Nya Jaramillo RN) Mother Ovarian cancer Father Aneurysm Surgical History: Surgical History (Last Updated 05/25/20 @ 14:38 by Nya Jaramillo RN) History of lumpectomy of right breast Social History: Social History (Last Updated 05/25/20 @ 14:40 by Nya Jaramillo RN) Alcohol History: Alcohol intake: never Advance Directives: Advance Directives: No Advance Directives Information Provided: Yes Oncology Screenings - ECOG Performance Status ECOG Performance Status: 2 Home Medications and Allergies Current Medications: Current Medications Generic Name Dose Route Start Last Admin Trade Name Neelq PRN Reason Stop Dose Admin Atropine Sulfate 0.5 mg 12/05/20 00:00 Atropine Sulfate 1 Mg/Ml Vial SUBCUT 12/05/20 23:59 ONCE [facility]ITA Famotidine 20 mg 12/05/20 00:00 12/05/20 09:09 Famotidine/Pf 20 Mg/2 Ml Vial IVPUSH 12/05/20 23:59 20 mg ONCE SMITA Administration Heparin Sodium (Porcine) 500 unit 12/05/20 00:00 12/05/20 09:45 Heparin Sodium,Porcine Flush 500 Unit/5 Ml Syringe IVFLUSH 12/05/20 23:59 500 unit ONCE SMITA Administration Ondansetron HCl 16 mg in 50 mls @ 200 mls/hr 11/08/20 10:15 11/08/20 10:36 Zofran IV Infused ONCE [facility]ITA Infusion Fosaprepitant 150 mg/ Sodium 150 mls @ 300 mls/hr 12/05/20 00:00 12/05/20 10:42 Chloride IV 12/05/20 23:59 Infused ONCE [facility]ITA Infusion Irinotecan HCl 200 mg/ 510.5 mls @ 340.333 mls/hr 12/05/20 00:00 12/05/20 11:07 Irinotecan HCl 10 mg/ Dextrose IV 12/05/20 23:59 340.33 mls/hr ONCE SMITA Administration Home Medications Medication Instructions Recorded Confirmed Type amlodipine 5 mg PO BID 04/23/20 12/05/20 History magnesium hydroxide [Milk of 5 ml PO BEDTIME PRN 04/23/20 12/05/20 History Magnesia] pantoprazole 40 mg PO BID 04/23/20 12/05/20 History polyethylene glycol 3350 [Miralax] 17 g PO DAILY PRN 04/23/20 12/05/20 History spironolactone 25 mg PO DAILY 06/26/20 12/05/20 History acetaminophen [Tylenol] 650 mg PO Q4H PRN 07/04/20 12/05/20 History Allergies Allergy/AdvReac Type Severity Reaction Status Date / Time Inhaled Anesthetics (Halogen Allergy Severe Anaphylaxis Verified 09/27/20 11:44 Based) oxaliplatin [OXALIPLATIN] Allergy Severe Itching Verified 09/27/20 11:44 Exam Vital signs: Vital Signs Temp 97.8 F 11/21/20 09:03 Pulse 105 H 11/21/20 09:03 Resp 18 11/21/20 09:03 BP 136/64 11/21/20 09:49 Pulse Ox 99 11/21/20 09:03 Intake & Output 12/04/20 12/05/20 12/05/20 18:59 06:59 18:59 Intake Total 250 / 250 Balance 250 / 250 Intake: Intake, IV Amount 250 / 250 Fosaprepitant Dimeglumine 150 150 / 150 mg In 0.9 % Sodium Chloride 145 ml @ 300 mls/hr IV ONCE [facility]ITA Rx #:[id number] dexAMETHasone sod phosphate/NS 50 / 50 12 mg In 50 ml @ 200 mls/hr IV ONCE [facility] Rx#:[id number] ondansetron HCL/NS 16 mg In 50 50 / 50 ml @ 200 mls/hr IV ONCE [facility] Rx# :[id number] Weight 50.3 kg Body Mass Index 22.4 - Constitutional Present: no acute distress, chronically ill appearing - Routine HEENT Exam Head: Present: normal inspection - Routine Neck Exam Present: normal inspection - Routine Respiratory Exam Present: CTAB - Routine Cardiovascular Exam Cardiovascular: Present: RRR, S1, S2 Data - Labs CBC & Chem 7: 12/04/20 09:32 12/04/20 09:32 Labs: 03/15/20 12:37 Heparin Sodium,Porcine Flush 500 unit 0.9 % Sodium Chloride Flush [NS Flush] 5 ml IVFLUSH ONCE 03/15/20 12:46 Heparin Sodium,Porcine Flush 500 unit IVFLUSH .STK-MED ONE 04/09/20 15:04 Carcinoembryonic Antigen Routine Complete Blood Count Auto Diff Routine Comprehensive Met. Panel Routine 04/23/20 10:51 Heparin Sodium,Porcine Flush 500 unit 0.9 % Sodium Chloride Flush [NS Flush] 5 ml IVFLUSH ONCE 04/23/20 11:24 Alteplase Cath Clear [Cathflo Activase] 2 mg INTRACATH ONCE ONE 04/23/20 13:41 Heparin Sodium,Porcine Flush 500 unit IVFLUSH .STK-MED ONE 04/23/20 14:30 Carcinoembryonic Antigen Routine Complete Blood Count Auto Diff Routine Comprehensive Met. Panel Routine 05/25/20 14:12 Heparin Sodium,Porcine Flush 500 unit 0.9 % Sodium Chloride Flush [NS Flush] 5 ml IVFLUSH ONCE 05/25/20 14:21 Heparin Sodium,Porcine Flush 500 unit IVFLUSH .STK-MED ONE 05/25/20 14:45 Carcinoembryonic Antigen Routine Complete Blood Count Auto Diff Routine Comprehensive Met. Panel Routine Laboratory Last Values WBC 8.9 X10*3/uL (4.8-10.8) 05/25/20 14:45 RBC 4.08 X10*6/uL (4.20-5.50) L 05/25/20 14:45 Hgb 11.6 g/dl (12.0-16.0) L 05/25/20 14:45 Hct 36.8 % (37-47) L 05/25/20 14:45 MCV 90.2 fL (80-98) 05/25/20 14:45 MCH 28.4 pg (27.0-33.0) 05/25/20 14:45 MCHC 31.5 g/dl (31.0-35.0) 05/25/20 14:45 RDW 14.6 % (11.0-16.0) 05/25/20 14:45 Plt Count 342 X10*3/uL (160-400) 05/25/20 14:45 MPV 10.0 fL (9.4-12.3) 05/25/20 14:45 Immature Gran % (Auto) 0.2 % (0.0-0.4) 05/25/20 14:45 Neut % (Auto) 68.9 % (45-73) 05/25/20 14:45 Lymph % (Auto) 17.8 % (20-40) L 05/25/20 14:45 [place] % (Auto) 11.2 % (2-11) H 05/25/20 14:45 Eos % (Auto) 1.6 % (0-4) 05/25/20 14:45 Baso % (Auto) 0.3 % (0-2) 05/25/20 14:45 Lymph # (Auto) 1.6 X10*3/uL (1.2-4.9) 05/25/20 14:45 [place] # (Auto) 1.0 X10*3/uL (0.1-1.2) 05/25/20 14:45 Eos # (Auto) 0.1 X10*3/uL (0.0-0.4) 05/25/20 14:45 Baso # (Auto) 0.0 X10*3/uL (0.0-0.2) 05/25/20 14:45 Abs Immat Gran (auto) 0.02 X10*3/uL (0.00-0.03) 05/25/20 14:45 Absolute Neuts (auto) 6.1 X10*3/uL (2.0-8.3) 05/25/20 14:45 Absolute Nucleated RBC 0.000 X10*3/uL (0.0-0.012) 05/25/20 14:45 Nucleated RBC % (auto) 0.0 /100WBC (0.0-0.2) 05/25/20 14:45 Sodium 139 mmol/L (135-145) 05/25/20 14:45 Potassium 4.0 mmol/l (3.3-5.1) 05/25/20 14:45 Chloride 104 mmol/L (96-108) 05/25/20 14:45 Carbon Dioxide 25 mmol/L (22-29) 05/25/20 14:45 Anion Gap 14 (12-20) 05/25/20 14:45 BUN 12 mg/dL (9-16) 05/25/20 14:45 Creatinine 0.76 mg/dL (0.5-1.4) 05/25/20 14:45 Estim Creat Clear Calc 53.1 05/25/20 14:45 Estimated GFR > 60 05/25/20 14:45 Random Glucose 100 mg/dL (60-115) 05/25/20 14:45 Calcium 8.7 mg/dL (8.4-10.2) 05/25/20 14:45 Total Bilirubin 0.4 mg/dL (0.0-1.0) 05/25/20 14:45 AST 125 U/L (5-31) H 05/25/20 14:45 ALT 58 U/L (0-31) H 05/25/20 14:45 Alkaline Phosphatase 135 U/L (39-117) H D 05/25/20 14:45 Total Protein 7.1 g/dL (6.5-8.0) 05/25/20 14:45 Albumin 3.9 g/dL (3.5-5.0) 05/25/20 14:45 Carcinoembryonic Ag 22.70 mg/mL D 05/25/20 14:45 Progress Note: A/P (1) Gastric cancer Status: Chronic Assessment and plan: 1. 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 Immunohistochemistry for HER2 negative. PDL-1 expression-combined positive score of 30. She started palliative chemotherapy with modified FOLFOX regimen on 09/13/2019. She is now on single agent irinotecan from July 2020. She is doing okay but her tumor marker is going up. If this is persistent, she can be switched to 3rd line treatment with single agent pembrolizumab 200 mg IV q. 3 weeks. Follow-up in 3 weeks. - Time Spent With Patient 15 - 24 minutes
--- NOTE | 2020-12-14 13:53 | MHC.HEMONC ---
DILIP RN, Rigoberto called to notify us that pt has cold sx which seemed to start after second Covid vaccine last Thursday. He said she was going for Covid test today. I followed up with pt and her daughter this afternoon and they said her rapid result was negative. She is afebrile. She is drinking well. She is getting relief of cold sx from Nyquil and Theraflu. I told her to be sure to call our Oncall coverage if fever or worsening sx presents. They understand.
[2020-12-18 10:09] LABS: MANUAL DIFF FLAG NO
[2020-12-18 10:17] LABS: Basophils Percent Auto 0.1 % (0-2); Eosinophils Absolute Auto 0.3 X10*3/uL (0.0-0.4); Eosinophils Percent Auto 3.5 % (0-4); Hematocrit 32.9 % (37-47); Hemoglobin 10.1 g/dl (12.0-16.0); Imm Gran Abs Auto 0.04 X10*3/uL (0.00-0.03); Imm Gran Pct Auto 0.5 % (0.0-0.4); Lymphocytes Percent Auto 13.3 % (20-40); Mean Corpuscular HGB Conc 30.7 g/dl (31.0-35.0); Mean Corpuscular Hemoglobin 25.5 pg (27.0-33.0); Mean Corpuscular Volume 83.1 fL (80-98); Mean Platelet Volume 8.9 fL (9.4-12.3); Monocytes Absolute Auto 0.9 X10*3/uL (0.1-1.2); Neutrophils Absolute Auto 5.4 X10*3/uL (2.0-8.3); Neutrophils Percent Auto 70.6 % (45-73); Platelet Count 287 X10*3/uL (160-400); Red Blood Count 3.96 X10*6/uL (4.20-5.50); Red Cell Distribution Width 18.4 % (11.0-16.0); White Blood Count 7.7 X10*3/uL (4.8-10.8)
[2020-12-18 10:49] LABS: Alanine Aminotransferase 124 U/L (0-31); Albumin Level 3.8 g/dL (3.5-5.0); Alkaline Phosphatase 415 U/L (39-117); Anion Gap 13 (12-20); Aspartate Amino Transferase 63 U/L (5-31); Bilirubin Total 0.5 mg/dL (0.0-1.0); Blood Urea Nitrogen 10 mg/dL (9-16); Calcium 9.3 mg/dL (8.4-10.2); Carbon Dioxide 29 mmol/L (22-29); Chloride 104 mmol/L (96-108); Creatinine Clr Calc Pharmacy 32.6; Estimated Glomerular Filt Rate 51; Glucose Random 96 mg/dL (60-115); Potassium 4.6 mmol/L (3.3-5.1); Sodium 141 mmol/L (135-145); Total Protein 6.6 g/dL (6.5-8.0)
--- NOTE | 2020-12-18 13:56 | MHC.HEMONC ---
Pt here for lab draw. Blood drawn by regional branch manager-specimen to lab. Discharged home. Lab results reviewed GOT 63, GPT 124, ALK PHOS 415. Results reported to Dr Villatoro. Additional lab work ordered.
[2020-12-19 09:06] VITALS: BP 176/94; PULSE 106; RESP 18; TEMP 36.6; O2SAT 100; BMI 23.2
[2020-12-19] MEDS: Famotidine/PF 20 MG/2 ML VIAL IVPUSH (09:27)
[2020-12-19] MEDS: dexAMETHasone sod phosphate/NS 12 MG/50 ML PIGGYBACK 200 MG IV (09:27)
[2020-12-19] MEDS: Atropine Sulfate 1 MG/ML VIAL 0.5 MG SUBCUT (09:27)
[2020-12-19] MEDS: ondansetron HCL/NS 16 MG/50 ML PIGGYBACK 200 MG IV (09:27)
[2020-12-19] MEDS: Heparin Sodium,Porcine Flush 500 UNIT/5 ML SYRINGE IVFLUSH (09:27)
[2020-12-19] MEDS: Fosaprepitant Dimeglumine 150 MG in 0.9 % Sodium Chloride 145 ML 300 MG IV (10:03)
[2021-01-01 09:44] LABS: MANUAL DIFF FLAG NO
[2021-01-01 09:50] LABS: Basophils Percent Auto 0.3 % (0-2); Eosinophils Absolute Auto 0.1 X10*3/uL (0.0-0.4); Eosinophils Percent Auto 2.2 % (0-4); Hematocrit 33.3 % (37-47); Hemoglobin 10.2 g/dl (12.0-16.0); Imm Gran Abs Auto 0.03 X10*3/uL (0.00-0.03); Imm Gran Pct Auto 0.5 % (0.0-0.4); Lymphocytes Absolute Auto 1.2 X10*3/uL (1.2-4.9); Lymphocytes Percent Auto 18.6 % (20-40); Mean Corpuscular HGB Conc 30.6 g/dl (31.0-35.0); Mean Corpuscular Hemoglobin 25.4 pg (27.0-33.0); Mean Platelet Volume 9.2 fL (9.4-12.3); Monocytes Absolute Auto 0.8 X10*3/uL (0.1-1.2); Monocytes Percent Auto 12.9 % (2-11); Neutrophils Absolute Auto 4.3 X10*3/uL (2.0-8.3); Neutrophils Percent Auto 65.5 % (45-73); Platelet Count 380 X10*3/uL (160-400); Red Blood Count 4.01 X10*6/uL (4.20-5.50); Red Cell Distribution Width 17.2 % (11.0-16.0); White Blood Count 6.5 X10*3/uL (4.8-10.8)
[2021-01-01 10:14] LABS: Alanine Aminotransferase 229 U/L (0-31); Albumin Level 3.8 g/dL (3.5-5.0); Alkaline Phosphatase 452 U/L (39-117); Anion Gap 15 (12-20); Aspartate Amino Transferase 377 U/L (5-31); Bilirubin Total 1.4 mg/dL (0.0-1.0); Blood Urea Nitrogen 11 mg/dL (9-16); Calcium 9.2 mg/dL (8.4-10.2); Carbon Dioxide 27 mmol/L (22-29); Chloride 103 mmol/L (96-108); Creatinine Clr Calc Pharmacy 30.3; Estimated Glomerular Filt Rate 43; Glucose Random 120 mg/dL (60-115); Sodium 141 mmol/L (135-145); Total Protein 6.7 g/dL (6.5-8.0)
--- NOTE | 2021-01-01 12:53 | MHC.HEMONC ---
pt attended for labs today- stable. however based on CT dr sctot is planning on changing tx. spoke to pt daughter on the phone she is aware appointment will be made sometime at the end of this week with follow up and teaching and tx of kofi Q3W pending insurance
--- NOTE | 2021-01-01 13:40 | HO.HEMONCPA ---
JEROME FOR KETRUDA 200mg ([id number]) REQUESTED. WAITING ON [place]ISON. REF#[id number] [facility] [employer]
--- NOTE | 2021-01-02 10:56 | HO.HEMONCPA ---
JEROME HERRERA ([id number]) APPROVEDBY [facility]. AUTH#[id number] EFFECTIVE 01/04/2021 to 06/14/2021.
[2021-01-02 12:23] LABS: Thyroid Stimulating Hormone 2.41 uIU/mL (0.32-4.0)
[2021-01-04 11:18] VITALS: BP 172/77; PULSE 112; RESP 18; TEMP 36.6; O2SAT 97; BMI 24.0
--- NOTE | 2021-01-04 13:02 | PM.HEMONCPN ---
Medical Summary - Medical Summary Date of Service: 01/04/21 Chief complaint: Increasing abdominal distension Medical Summary: Diagnosis: Metastatic Gastric Cancer August 2019 Admitted in August 2019 with complaints of abdominal pain, nausea/emesis and weight loss. Chronic reflux symptoms for many years. Imaging with CT abdomen/pelvis without contrast revealed multiple lung nodules suspicious for metastatic disease, moderate abdominal ascites, mesenteric nodules around the stomach and upper abdomen suspicious for carcinomatosis, omental thickening, diffuse thickening of wall of stomach. Hydronephrosis of right kidney at the level of right adnexa. CEA elevated 23.7, CA 27-29 normal. EGD performed 09/01/2019 revealed multiple areas of gastric ulceration associated with induration and friability with poor gastric distention. 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 Immunohistochemistry for HER2 negative. Staging whole-body PET[facility]CT September 2019 at [facility] revealed mildly increased FDG uptake within the stomach, SUV 3.8. Mild increased activity in epigastric/perigastric lymph node SUV 3, FDG uptake within nodular densities within anterior omentum SUV 2.3 all concerning for metastatic disease. No additional FDG activity in neck, chest, abdomen or pelvis. No FDG uptake in small pulmonary nodules. She started palliative chemotherapy with modified FOLFOX regimen on 09/13/2019. Oxaliplatin M discontinued in January 2020 because of allergic/infusion reaction which was moderately severe. FOLFIRI regimen started on 02/14/2020. FOLFIRI regimen discontinued in March 2020 because of side effects. She was switched to maintenance Xeloda end of March 2020. She stopped taking it from 04/09/2020 because of generalized body aches and not feeling well overall. Abdomen pelvis on 06/05/2020 revealed new moderate to large amount of ascites, infiltration and nodularity of greater omentum worrisome for carcinomatosis. Stable CT chest no evidence of metastatic disease. She resumed Xeloda 1500 mg b.i.d. since 06/13/2020. This did not help. She was then switched to single agent irinotecan from July 2020. Interval History Interval history: Patient is here in follow-up. She is not doing so well. Her abdominal girth is increasing and she reports slight discomfort. No severe pain. She went to [facility] emergency room a week ago for chest pain. Her daughter thinks it was more related to anxiety. Cardiac workup was negative. She denies fever or chills. No dysuria, diarrhea or constipation. She would like to defer treatment today. Review of Systems - Constitutional Reports as per HPI, Denies anorexia, Reports fatigue, Reports lack of energy, Denies weight loss - Cardiovascular Reports no additional cardiovascular complaints - Respiratory Reports no additional respiratory complaints - Gastrointestinal Reports no additional gastrointestinal complaints [facility] Medical History: Medical History (Last Updated 05/25/20 @ 14:37 by Nya Jaramillo RN) Breast cancer, right breast GERD (gastroesophageal reflux disease) Helicobacter pylori antibody positive Hypertension Family History: Family History (Last Updated 05/25/20 @ 14:38 by Nya Jaramillo RN) Mother Ovarian cancer Father Aneurysm Surgical History: Surgical History (Last Updated 05/25/20 @ 14:38 by Nya Jaramillo RN) History of lumpectomy of right breast Social History: Social History (Last Updated 05/25/20 @ 14:40 by Nya Jaramillo RN) Alcohol History: Alcohol intake: never Advance Directives: Advance Directives: No Advance Directives Information Provided: Yes Oncology Screenings - ECOG Performance Status ECOG Performance Status: 2 Home Medications and Allergies Current Medications: Current Medications Generic Name Dose Route Start Last Admin Trade Name Cricket PRN Reason Stop Dose Admin Acetaminophen 650 mg 01/04/21 00:00 Acetaminophen 325 Mg Tablet PO 01/04/21 23:59 ONCE [facility] Diphenhydramine HCl 25 mg 01/04/21 00:00 Diphenhydramine Hcl 25 Mg Tablet PO 01/04/21 23:59 ONCE [facility] Heparin Sodium (Porcine) 500 unit 01/04/21 00:00 Heparin Sodium,Porcine Flush 500 Unit/5 Ml Syringe IVFLUSH 01/04/21 23:59 ONCE [facility] Ondansetron HCl 16 mg in 50 mls @ 200 mls/hr 11/08/20 10:15 11/08/20 10:36 Zofran IV Infused ONCE [facility] Infusion Ondansetron HCl 8 mg 01/04/21 00:00 Ondansetron Odt 8 Mg Tab.Rapdis TRANSLINGU 01/04/21 23:59 ONCE [facility] Home Medications Medication Instructions Recorded Confirmed Type amlodipine 5 mg PO BID 04/23/20 12/05/20 History magnesium hydroxide [Milk of 5 ml PO BEDTIME PRN 04/23/20 12/05/20 History Magnesia] pantoprazole 40 mg PO BID 04/23/20 12/05/20 History polyethylene glycol 3350 [Miralax] 17 g PO DAILY PRN 04/23/20 12/05/20 History spironolactone 25 mg PO DAILY 06/26/20 12/05/20 History acetaminophen [Tylenol] 650 mg PO Q4H PRN 07/04/20 12/05/20 History Allergies Allergy/AdvReac Type Severity Reaction Status Date / Time Inhaled Anesthetics (Halogen Allergy Severe Anaphylaxis Verified 09/27/20 11:44 Based) oxaliplatin [OXALIPLATIN] Allergy Severe Itching Verified 09/27/20 11:44 Exam Vital signs: Vital Signs Temp 97.9 F 01/04/21 11:18 Pulse 112 H 01/04/21 11:18 Resp 18 01/04/21 11:18 BP 172/77 H 01/04/21 11:18 Pulse Ox 97 01/04/21 11:18 Intake & Output 01/03/21 01/04/21 01/04/21 18:59 06:59 18:59 Other: Weight 53.9 kg Weight in Grams 47698 Weight 53.9 kg Body Mass Index 24.0 - Constitutional Present: no acute distress, chronically ill appearing - Routine HEENT Exam Head: Present: normal inspection - Routine Neck Exam Present: normal inspection - Routine Respiratory Exam Present: CTAB - Routine Cardiovascular Exam Cardiovascular: Present: RRR, S1, S2 Data - Labs CBC & Chem 7: 01/01/21 09:17 01/01/21 09:17 Labs: 03/15/20 12:37 Heparin Sodium,Porcine Flush 500 unit 0.9 % Sodium Chloride Flush [NS Flush] 5 ml IVFLUSH ONCE 03/15/20 12:46 Heparin Sodium,Porcine Flush 500 unit IVFLUSH .STK-MED ONE 04/09/20 15:04 Carcinoembryonic Antigen Routine Complete Blood Count Auto Diff Routine Comprehensive Met. Panel Routine 04/23/20 10:51 Heparin Sodium,Porcine Flush 500 unit 0.9 % Sodium Chloride Flush [NS Flush] 5 ml IVFLUSH ONCE 04/23/20 11:24 Alteplase Cath Clear [Cathflo Activase] 2 mg INTRACATH ONCE ONE 04/23/20 13:41 Heparin Sodium,Porcine Flush 500 unit IVFLUSH .STK-MED ONE 04/23/20 14:30 Carcinoembryonic Antigen Routine Complete Blood Count Auto Diff Routine Comprehensive Met. Panel Routine 05/25/20 14:12 Heparin Sodium,Porcine Flush 500 unit 0.9 % Sodium Chloride Flush [NS Flush] 5 ml IVFLUSH ONCE 05/25/20 14:21 Heparin Sodium,Porcine Flush 500 unit IVFLUSH .STK-MED ONE 05/25/20 14:45 Carcinoembryonic Antigen Routine Complete Blood Count Auto Diff Routine Comprehensive Met. Panel Routine Laboratory Last Values WBC 8.9 X10*3/uL (4.8-10.8) 05/25/20 14:45 RBC 4.08 X10*6/uL (4.20-5.50) L 05/25/20 14:45 Hgb 11.6 g/dl (12.0-16.0) L 05/25/20 14:45 Hct 36.8 % (37-47) L 05/25/20 14:45 MCV 90.2 fL (80-98) 05/25/20 14:45 MCH 28.4 pg (27.0-33.0) 05/25/20 14:45 MCHC 31.5 g/dl (31.0-35.0) 05/25/20 14:45 RDW 14.6 % (11.0-16.0) 05/25/20 14:45 Plt Count 342 X10*3/uL (160-400) 05/25/20 14:45 MPV 10.0 fL (9.4-12.3) 05/25/20 14:45 Immature Gran % (Auto) 0.2 % (0.0-0.4) 05/25/20 14:45 Neut % (Auto) 68.9 % (45-73) 05/25/20 14:45 Lymph % (Auto) 17.8 % (20-40) L 05/25/20 14:45 Clayton % (Auto) 11.2 % (2-11) H 05/25/20 14:45 Eos % (Auto) 1.6 % (0-4) 05/25/20 14:45 Baso % (Auto) 0.3 % (0-2) 05/25/20 14:45 Lymph # (Auto) 1.6 X10*3/uL (1.2-4.9) 05/25/20 14:45 Clayton # (Auto) 1.0 X10*3/uL (0.1-1.2) 05/25/20 14:45 Eos # (Auto) 0.1 X10*3/uL (0.0-0.4) 05/25/20 14:45 Baso # (Auto) 0.0 X10*3/uL (0.0-0.2) 05/25/20 14:45 Abs Immat Gran (auto) 0.02 X10*3/uL (0.00-0.03) 05/25/20 14:45 Absolute Neuts (auto) 6.1 X10*3/uL (2.0-8.3) 05/25/20 14:45 Absolute Nucleated RBC 0.000 X10*3/uL (0.0-0.012) 05/25/20 14:45 Nucleated RBC % (auto) 0.0 /100WBC (0.0-0.2) 05/25/20 14:45 Sodium 139 mmol/L (135-145) 05/25/20 14:45 Potassium 4.0 mmol/l (3.3-5.1) 05/25/20 14:45 Chloride 104 mmol/L (96-108) 05/25/20 14:45 Carbon Dioxide 25 mmol/L (22-29) 05/25/20 14:45 Anion Gap 14 (-20) 05/25/20 14:45 BUN 12 mg/dL (9-16) 05/25/20 14:45 Creatinine 0.76 mg/dL (0.5-1.4) 05/25/20 14:45 Estim Creat Clear Calc 53.1 05/25/20 14:45 Estimated GFR > 60 05/25/20 14:45 Random Glucose 100 mg/dL (60-115) 05/25/20 14:45 Calcium 8.7 mg/dL (8.4-10.2) 05/25/20 14:45 Total Bilirubin 0.4 mg/dL (0.0-1.0) 05/25/20 14:45 AST 125 U/L (5-31) H 05/25/20 14:45 ALT 58 U/L (0-31) H 05/25/20 14:45 Alkaline Phosphatase 135 U/L (39-117) H D 05/25/20 14:45 Total Protein 7.1 g/dL (6.5-8.0) 05/25/20 14:45 Albumin 3.9 g/dL (3.5-5.0) 05/25/20 14:45 Carcinoembryonic Ag 22.70 mg/mL D 05/25/20 14:45 Progress Note: A/P (1) Gastric cancer Status: Chronic Assessment and plan: 1. 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 Immunohistochemistry for HER2 negative. PDL-1 expression-combined positive score of 30. She started palliative chemotherapy with modified FOLFOX regimen on 09/13/2019. She was on single agent irinotecan from July 2020 until november 2020. Recent imaging with CT abdomen/pelvis in December 2020 shows increasing ascites, peritoneal carcinomatosis and right pelvic mass all concerning for progressive disease. I discussed this with patient and her daughter. I have recommended that we switch treatment, discontinue irinotecan and start with single agent pembrolizumab/immunotherapy since she has good expression of PDL1. I discussed possible side effects of therapy chiefly pertaining to immune associated organ toxicity with pembrolizumab 200 mg IV q. 3 weeks. She was scheduled for treatment this week but patient states that she is not ready to receive it yet. She would like to have a therapeutic paracentesis 1st and will schedule treatment subsequently. Follow-up in 3 weeks. - Time Spent With Patient Time Spent with Patient (in minutes): 20
--- NOTE | 2021-01-04 16:41 | MHC.HEMONC ---
pt here for teaching and to start with [place] per Dr Villatoro but pt wanted to visit with Dr Villatoro and delay treatment until January 15.She met with Dr Villatoro and pt c/o increased abdominal ascites. She will be scheduled for paracentisis by Navya GONZALEZ.Pt and her dtr were given explanation for and possible side effects of immunotherapy. She was given pt info in Albanian and Enlish and consent was signed. Pt to be called with paracentisis date.
--- NOTE | 2021-01-08 11:00 | MHC.HEMONCMA ---
Patient's daughter Nina has been notified that her paracentesis has been booked for today at 2pm, but she needs to arrive at ultrasound for 12. She understands and all questions/concerns were answered.
[2021-01-11 13:11] VITALS: BMI 21.3
[2021-01-11 13:18] VITALS: BP 191/91; PULSE 123; RESP 16; TEMP 36.4; O2SAT 98
--- NOTE | 2021-01-11 14:07 | MHC.HEMONC ---
Patient present for exam, patient states 5/10 midsternal chest pain since thursday following her paracentesis. I feel like an elephant is sitting on my chest . CP not reproducible, worse on inspiration. Patient b/p 190's systolically and tachy in the 120's. Dr. Villatoro made aware of above. patient referred and transferred to ER for further workup.
--- NOTE | 2021-01-11 15:06 | PM.EVENT ---
Patient came in complaining of 5/10 chest pain. She describes it as pleuritic, associated with inability to take a deep breath. No radiation, no associated diaphoresis or dizziness. The pain started yesterday. She does feel weak and the reports palpitation. No nausea or emesis. Blood pressure revealed anxious appearing woman. She was in sinus tachycardia heart rate 123 and her blood pressure was elevated at 190/91. I discussed possible etiologies such as acute coronary event or pulmonary embolism. She is being sent to the emergency department for further workup. Patient and family agreeable with above plan.
[2021-01-14 10:00] VITALS: BP 172/84; PULSE 96; RESP 16; TEMP 36.1; O2SAT 98
[2021-01-14 10:03] LABS: MANUAL DIFF FLAG NO
[2021-01-14 10:14] LABS: Basophils Percent Auto 0.2 % (0-2); Eosinophils Percent Auto 0.4 % (0-4); Hematocrit 28.2 % (37-47); Imm Gran Abs Auto 0.08 X10*3/uL (0.00-0.03); Imm Gran Pct Auto 0.7 % (0.0-0.4); Lymphocytes Percent Auto 8.8 % (20-40); Mean Corpuscular HGB Conc 31.9 g/dl (31.0-35.0); Mean Corpuscular Hemoglobin 26.5 pg (27.0-33.0); Mean Corpuscular Volume 82.9 fL (80-98); Mean Platelet Volume 9.6 fL (9.4-12.3); Monocytes Percent Auto 9.1 % (2-11); Neutrophils Absolute Auto 9.1 X10*3/uL (2.0-8.3); Neutrophils Percent Auto 80.8 % (45-73); Platelet Count 442 X10*3/uL (160-400); Red Cell Distribution Width 19.8 % (11.0-16.0); White Blood Count 11.3 X10*3/uL (4.8-10.8)
[2021-01-14 10:48] LABS: Alanine Aminotransferase 178 U/L (0-31); Albumin Level 2.7 g/dL (3.5-5.0); Alkaline Phosphatase 1132 U/L (39-117); Anion Gap 14 (12-20); Aspartate Amino Transferase 239 U/L (5-31); Bilirubin Total 9.9 mg/dL (0.0-1.0); Blood Urea Nitrogen 18 mg/dL (9-16); Calcium 8.5 mg/dL (8.4-10.2); Carbon Dioxide 24 mmol/L (22-29); Chloride 101 mmol/L (96-108); Creatinine Clr Calc Pharmacy 20.2; Estimated Glomerular Filt Rate 29; Glucose Random 139 mg/dL (60-115); Sodium 135 mmol/L (135-145); Total Protein 5.6 g/dL (6.5-8.0)
--- NOTE | 2021-01-14 11:22 | P.PNHO_ITS ---
Medical Summary - Medical Summary Date of Service: 01/14/21 Chief complaint: Worsening weakness and jaundice Medical Summary: Diagnosis: Metastatic Gastric Cancer August 2019 Admitted in August 2019 with complaints of abdominal pain, nausea/emesis and weight loss. Chronic reflux symptoms for many years. Imaging with CT abdomen/pelvis without contrast revealed multiple lung nodules suspicious for metastatic disease, moderate abdominal ascites, mesenteric nodules around the stomach and upper abdomen suspicious for carcinomatosis, omental thickening, diffuse thickening of wall of stomach. Hydronephrosis of right kidney at the level of right adnexa. CEA elevated 23.7, CA 27-29 normal. EGD performed 09/01/2019 revealed multiple areas of gastric ulceration associated with induration and friability with poor gastric distention. 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 Immunohistochemistry for HER2 negative. Staging whole-body PET[facility]CT September 2019 at [facility] revealed mildly increased FDG uptake within the stomach, SUV 3.8. Mild increased activity in epigastric/perigastric lymph node SUV 3, FDG uptake within nodular densities within anterior omentum SUV 2.3 all concerning for metastatic disease. No additional FDG activity in neck, chest, abdomen or pelvis. No FDG uptake in small pulmonary nodules. She started palliative chemotherapy with modified FOLFOX regimen on 09/13/2019. Oxaliplatin M discontinued in January 2020 because of allergic/infusion reaction which was moderately severe. FOLFIRI regimen started on 02/14/2020. FOLFIRI regimen discontinued in March 2020 because of side effects. She was switched to maintenance Xeloda end of March 2020. She stopped taking it from 04/09/2020 because of generalized body aches and not feeling well overall. Abdomen pelvis on 06/05/2020 revealed new moderate to large amount of ascites, infiltration and nodularity of greater omentum worrisome for carcinomatosis. Stable CT chest no evidence of metastatic disea se. She resumed Xeloda 1500 mg b.i.d. since 06/13/2020. This did not help. She was then switched to single agent irinotecan from July 2020. Interval History Interval history: patient is here accompanied by her daughter. In the last 1 week she has de teriorated rapidly. She has become extremely weak, nauseous all the time, gets intermittent abdominal discomfort. She was seen in the emergency room a couple of times for chest pain. CT angiogram was negative for PE. Blood work showed elevated liver enzymes and bilirubin. She has been started on oxycodone for pain control. She has been recommended for hospice care. Review of Systems - Constitutional Reports anorexia, Reports fatigue, Reports malaise, Reports poor appetite PMFSH Medical History: Medical History (Last Reviewed 01/11/21 @ 14:41 by Louie Hunter MD) Breast cancer, right breast GERD (gastroesophageal reflux disease) Helicobacter pylori antibody positive Hypertension Family History: Family History (Last Reviewed 01/11/21 @ 14:41 by Louie Hunter MD) Mother Ovarian cancer Father Aneurysm Surgical History: Surgical History (Last Reviewed 01/11/21 @ 14:41 by Louie Hunter MD) History of lumpectomy of right breast Social History: Social History (Last Reviewed 01/11/21 @ 14:41 by Louie Hunter MD) Alcohol History: Alcohol intake: never Alcohol History Details: Alcohol intake frequency: does not drink Advance Directives: Advance Directives: No Advance Directives Information Provided: Yes Oncology Screenings - ECOG Performance Status ECOG Performance Status: 4 Home Medications and Allergies Current Medications: Current Medications Generic Name Dose Route Start Last Admin Trade Name Freq PRN Reason Stop Dose Admin Acetaminophen 650 mg 01/14/21 00:00 Acetaminophen 325 Mg Tablet PO 01/14/21 23:59 ONCE [facility] Diphenhydramine HCl 25 mg 01/14/21 00:00 Diphenhydramine Hcl 25 Mg Tablet PO 01/14/21 23:59 ONCE [facility] Heparin Sodium (Porcine) 500 unit 01/14/21 00:00 Heparin Sodium,Porcine Flush 500 Unit/5 Ml Syringe IVFLUSH 01/14/21 23:59 ONCE [facility] Ondansetron HCl 16 mg in 50 mls @ 200 mls/hr 11/08/20 10:15 11/08/20 10:36 Zofran IV Infused ONCE [facility] Infusion Ondansetron HCl 8 mg 01/14/21 00:00 Ondansetron Odt 8 Mg Tab.Rapdis TRANSLINGU 01/14/21 23:59 ONCE [facility] Home Medications Medication Instructions Recorded Confirmed Type amlodipine 5 mg tablet 5 mg PO BID 04/23/20 12/05/20 History magnesium hydroxide 400 mg/5 mL 5 ml PO BEDTIME PRN 04/23/20 12/05/20 History oral suspension (Milk of Magnesia) pantoprazole 40 mg tablet,delayed 40 mg PO BID 04/23/20 12/05/20 History release polyethylene glycol 3350 17 gram 17 g PO DAILY PRN 04/23/20 12/05/20 History oral powder packet (Miralax) spironolactone 25 mg tablet 25 mg PO DAILY 06/26/20 12/05/20 History acetaminophen 325 mg tablet 650 mg PO Q4H PRN 07/04/20 12/05/20 History (Tylenol) Allergies Allergy/AdvReac Type Severity Reaction Status Date / Time Inhaled Anesthetics (Halogen Allergy Severe Anaphylaxis Verified 01/08/21 13:28 Based) oxaliplatin [OXALIPLATIN] Allergy Severe Itching Verified 01/08/21 13:28 Exam Vital signs: Vital Signs Temp 97 F 01/14/21 10:00 Pulse 96 01/14/21 10:00 Resp 16 01/14/21 10:00 BP 172/84 H 01/14/21 10:00 Pulse Ox 98 01/14/21 10:00 Weight 47.9 kg Body Mass Index 21.3 - Constitutional Present: no acute distress, chronically ill appearing - Routine HEENT Exam Head: Present: normal inspection Eye: Present: scleral icterus - Routine Neck Exam Present: normal inspection - Routine Respiratory Exam Present: CTAB - Routine Cardiovascular Exam Cardiovascular: Present: RRR, S1, S2 Data - Labs CBC & Chem 7: 01/14/21 09:57 01/14/21 09:57 Labs: 03/15/20 12:37 Heparin Sodium,Porcine Flush 500 unit 0.9 % Sodium Chloride Flush [NS Flush] 5 ml IVFLUSH ONCE 03/15/20 12:46 Heparin Sodium,Porcine Flush 500 unit IVFLUSH .STK-MED ONE 04/09/20 15:04 Carcinoembryonic Antigen Routine Complete Blood Count Auto Diff Routine Comprehensive Met. Panel Routine 04/23/20 10:51 Heparin Sodium,Porcine Flush 500 unit 0.9 % Sodium Chloride Flush [NS Flush] 5 ml IVFLUSH ONCE 04/23/20 11:24 Alteplase Cath Clear [Cathflo Activase] 2 mg INTRACATH ONCE ONE 04/23/20 13:41 Heparin Sodium,Porcine Flush 500 unit IVFLUSH .STK-MED ONE 04/23/20 14:30 Carcinoembryonic Antigen Routine Complete Blood Count Auto Diff Routine Comprehensive Met. Panel Routine 05/25/20 14:12 Heparin Sodium,Porcine Flush 500 unit 0.9 % Sodium Chloride Flush [NS Flush] 5 ml IVFLUSH ONCE 05/25/20 14:21 Heparin Sodium,Porcine Flush 500 unit IVFLUSH .[facility] ONE 05/25/20 14:45 Carcinoembryonic Antigen Routine Complete Blood Count Auto Diff Routine Comprehensive Met. Panel Routine Laboratory Last Values WBC 8.9 X10*3/uL (4.8-10.8) 05/25/20 14:45 RBC 4.08 X10*6/uL (4.20-5.50) L 05/25/20 14:45 Hgb 11.6 g/dl (12.0-16.0) L 05/25/20 14:45 Hct 36.8 % (37-47) L 05/25/20 14:45 MCV 90.2 fL (80-98) 05/25/20 14:45 MCH 28.4 pg (27.0-33.0) 05/25/20 14:45 MCHC 31.5 g/dl (31.0-35.0) 05/25/20 14:45 RDW 14.6 % (11.0-16.0) 05/25/20 14:45 Plt Count 342 X10*3/uL (160-400) 05/25/20 14:45 MPV 10.0 fL (9.4-12.3) 05/25/20 14:45 Immature Gran % (Auto) 0.2 % (0.0-0.4) 05/25/20 14:45 Neut % (Auto) 68.9 % (45-73) 05/25/20 14:45 Lymph % (Auto) 17.8 % (20-40) L 05/25/20 14:45 Stokes % (Auto) 11.2 % (2-11) H 05/25/20 14:45 Eos % (Auto) 1.6 % (0-4) 05/25/20 14:45 Baso % (Auto) 0.3 % (0-2) 05/25/20 14:45 Lymph # (Auto) 1.6 X10*3/uL (1.2-4.9) 05/25/20 14:45 Stokes # (Auto) 1.0 X10*3/uL (0.1-1.2) 05/25/20 14:45 Eos # (Auto) 0.1 X10*3/uL (0.0-0.4) 05/25/20 14:45 Baso # (Auto) 0.0 X10*3/uL (0.0-0.2) 05/25/20 14:45 Abs Immat Gran (auto) 0.02 X10*3/uL (0.00-0.03) 05/25/20 14:45 Absolute Neuts (auto) 6.1 X10*3/uL (2.0-8.3) 05/25/20 14:45 Absolute Nucleated RBC 0.000 X10*3/uL (0.0-0.012) 05/25/20 14:45 Nucleated RBC % (auto) 0.0 /100WBC (0.0-0.2) 05/25/20 14:45 Sodium 139 mmol/L (135-145) 05/25/20 14:45 Potassium 4.0 mmol/l (3.3-5.1) 05/25/20 14:45 Chloride 104 mmol/L (96-108) 05/25/20 14:45 Carbon Dioxide 25 mmol/L (22-29) 05/25/20 14:45 Anion Gap 14 (12-20) 05/25/20 14:45 BUN 12 mg/dL (9-16) 05/25/20 14:45 Creatinine 0.76 mg/dL (0.5-1.4) 05/25/20 14:45 Estim Creat Clear Calc 53.1 05/25/20 14:45 Estimated GFR > 60 05/25/20 14:45 Random Glucose 100 mg/dL (60-115) 05/25/20 14:45 Calcium 8.7 mg/dL (8.4-10.2) 05/25/20 14:45 Total Bilirubin 0.4 mg/dL (0.0-1.0) 05/25/20 14:45 AST 125 U/L (5-31) H 05/25/20 14:45 ALT 58 U/L (0-31) H 05/25/20 14:45 Alkaline Phosphatase 135 U/L (39-117) H D 05/25/20 14:45 Total Protein 7.1 g/dL (6.5-8.0) 05/25/20 14:45 Albumin 3.9 g/dL (3.5-5.0) 05/25/20 14:45 Carcinoembryonic Ag 22.70 mg/mL D 05/25/20 14:45 Progress Note: A/P (1) Gastric cancer Status: Chronic Assessment and plan: 1. 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 Immunohistochemistry for HER2 negative. PDL-1 expression-combined positive score of 30. She started palliative chemotherapy with modified FOLFOX regimen on 09/13/2019. She was on single agent irinotecan from July 2020 until november 2020. Recent imaging with CT abdomen/pelvis in December 2020 shows increasing ascites, peritoneal carcinomatosis and right pelvic mass all concerning for progressive disease. I discussed this with patient and her daughter. I have recommended that we switch treatment, discontinue irinotecan and start with single agent pembrolizumab/immunotherapy since she has good expression of PDL1. Unfortunately, patient has rapidly deteriorated in the last 10 days. She is now in liver failure which is causing significant nausea and anorexia. Patient is no longer a candidate to receive palliative systemic therapy. Today we discussed hospice care. She is willing for home hospice. we also discussed MOLST form, she is currently a full code, she has been recommended to change this to DNR/DNI. We discussed goals of care under hospice. For better pain control, she will be started on fentanyl patch 25 micro g Q 72 hours. She is on tramadol q.8 hours p.r.n. and has been prescribed oxycodone as needed. Both patient and daughter verbalized understanding and are agreeable with above plan. - Time Spent With Patient Time Spent with Patient (in minutes): 20
--- NOTE | 2021-01-14 14:54 | MHC.HEMONC ---
pt here with her dtr to f/u on ER visits and sx of nausea/vomiting and increased sleeping with weakness. VSS. Pt has developed some mild jaundice - is weak and sleepy but arousable. Able to eat a little. Seen by Dr Villatoro. After long discussion, pt agreed that her best option for care is to have Hospice at home. This discussion had taken place in ER over weekend and at home with her family as well. Hospice as notified and she will transition her care danny. Pt and her dtr were crying appropriately at the change in her level of care.
== END 2021-01-28 08:08 | disposition home or self-care (01) ==
LOC: HO.ONC 09:30
PROVIDERS: PCP Internal Medicine; Visit Provider Internal Medicine
DX: Z51.5 Encounter for palliative care (principal); C16.9 Malignant neoplasm of stomach, unspecified; K72.90 Hepatic failure, unspecified without coma; Z92.21 Personal history of antineoplastic chemotherapy
CPT/HCPCS: 36415; 36593; 80053; 81001; 82378; 83735; 84443; 85007; 85025; 85027; 87086; 96360; 96361; 96365; 96366; 96367; 96372; 96375; 96413; 96415; 96523; 99211; 99213; 99214; J0461; J1100; J1453; J1642; J2405; J2997; J9206